=== PATIENT | male | born 1965 | race Two or more races ===

== ENCOUNTER 2021-07-31 13:41 | Emergency (ER) | payer BC, OTHER, SELFPAY ==
[2021-07-31 14:08] VITALS: BP 188/103; PULSE 72; RESP 18; TEMP 37.1; O2SAT 99; BMI 31.6
[2021-07-31 14:34] LABS: COVID-19 Test Negative (Negative)
--- NOTE | 2021-07-31 16:28 | ED_ITS ---
HPI - URI/Sore Throat General Chief Complaint: Upper Respiratory Symptoms Stated Complaint: Body aches/sore throat Time Seen by Provider: 07/31/21 16:20 Source: patient Mode of arrival: ambulatory Limitations: no limitations History of Present Illness MD elicited complaint: cough, sore throat, rhinorrhea and nasal congestion Onset (ago): day(s) (2) Consistency: constant and progressively worsening Severity: mild Able to tolerate fluids by mouth: Yes Exacerbating factors: swallowing Relieving factors: nothing Associated symptoms: chills, myalgias, rhinorrhea, nasal congestion, sore throat and cough Treatments prior to arrival: none Related Data Previous Rx's Medication Instructions Recorded amoxicillin 875 mg-potassium 1 tab PO BID 10 Days #20 tab 07/31/21 clavulanate 125 mg tablet (Augmentin) Allergies Allergy/AdvReac Type Severity Reaction Status Date / Time No Known Allergies Allergy Unverified 04/27/20 15:40 Review of Systems Review of Systems: Constitutional : No Weight loss, No Fever, + Chills, No Night Sweats, + Fatigue, + Malaise ENT/Mouth : No Hearing loss, No Ear Pain, + Nasal Congestion, No Sinus Pain, No Hoarseness, + sore throat, + Rhinorrhea, No Swallowing Difficulty Eyes: No Eye Pain, No Swelling, No Redness, No Foreign Body, No Discharge, No Vision Changes Cardiovascular : No Chest Pain, No SOB, No Dyspnea on Exertion, No Orthopnea, No Edema, No Palpitations Respiratory : + Cough, No Sputum, No Wheezing, No Smoke Exposure, No Dyspnea Gastrointestinal : No Nausea, No Vomiting, No Diarrhea, No Constipation, No abdominal Pain, No Hematochezia, No Melena Genitourinary : no irregular bleeding, No Dysuria, No Urinary Frequency, No Hematuria, No Urinary Incontinence, No Urgency, No Flank Pain, No Urinary Flow Changes, No Hesitancy Musculoskeletal : No joint pain, + Myalgias, No Joint Swelling Skin : No Skin Lesions, No rash Neuro : No Weakness, No Numbness, No Paresthesias, No Loss of Consciousness, No Dizziness, No Headache Psych : No Anxiety/Panic, No Depression, No SI/HI/AH/VH, No Social Issues, Heme/Lymph: No Bruising, No Bleeding,No Lymphadenopathy Endocrine : No Polyuria, No Polydipsia, No Temperature Intolerance Yes all other systems are reviewed and are negative [facility] Past Medical History Attestation statement: The following information was validated with the patient. Medical History No known health problems Physical Exam Vital Signs: Vital Signs: Last Vital Signs Temp 98.8 F 07/31/21 14:08 Pulse 72 07/31/21 14:08 Resp 18 07/31/21 14:08 BP 188/103 H 07/31/21 14:08 Pulse Ox 99 07/31/21 14:08 BMI result Body Mass Index 31.6 vital signs have been reviewed as normal and appeared to be correct. Blood pressure 188/103. Heart rate normal. Respiration rate normal. Temperature normal. Oxygen saturation normal. Appearance: Alert. Oriented X3. No acute distress. Head: Normal external exam. Normocephalic. Atraumatic. Eyes: PERRLA. EOMI. Conjunctiva and sclera normal. Eyelids normal. ENT: EAC normal. TM's Normal. Posterior pharynx mildly erythematous although exudate is noted. Uvula midline. Moist mucous membranes. No trismus noted. No drooling noted. No muffled voice noted. Tolerating secretions well. Neck: Normal inspection. Neck supple. FROM. No adenopathy. Thyroid Normal. No meningeal signs. No neck mass noted. CVS: Normal heart rate and rhythm. Heart sound normal. Pulses normal throughout. No murmurs/rales/gallops. Respiratory: No respiratory distress. Painless inspiration. Breath sounds normal. No wheezes/rales/rhonchi noted. Chest nontender. No accessory muscle usage noted or decreased air movement noted. Back: Full range of motion noted. No rashes/lesion/induration/fluctuance or signs of infection noted. Skin: Skin warm and dry. Normal skin color. Normal skin turgor. No rashes/lesions/lacerations noted. Extremities: Extremities exhibit normal range of motion. Extremities nontender. Neuro: Oriented X 3. No motor deficit. No sensory deficit. Reflexes normal. Normal steady gait. No focal neuro deficits noted. Vascular: + radial pulses/+ 2 distal pedal pulses/+2 dorsalis pedis b/l. Normal cap refill. No cyanosis noted to upper extremity nails and lower extremity toes nails. Course Course Course Narrative: 56-year-old male presenting to the ED with complaints of body aches/chills/myalgias/VT with a sore throat/nasal congestion/rhinorrhea and a dry cough for the past 2 days worse today. Reports that he wants to be tested for COVID. Denies recent travel or sick contacts. Denies any other symptoms. Patient negative for COVID. I explained him that he should have repeat testing in 5-7 days. Will DC home with antibiotics for bacterial pharyngitis and to follow-up with primary care provider. Patient understands agrees with this plan. MDM - URI/Sore Throat Medical Records Attestation: I reviewed the patient's medical records. Lab Data Attestation: I reviewed the patient's lab results. Labs: Lab Results 07/31/21 Range/Units 14:07 COVID-19 ([facility]) Negative (Negative) COVID-19 Clin Com See Note Discharge Plan Discharge Clinical Impression: Acute bacterial pharyngitis Patient Disposition: Home, Self-Care Instructions: Pharyngitis (ED) Prescriptions: New amoxicillin-pot clavulanate [Augmentin] 875-125 mg tablet 1 tab PO BID 10 Days Qty: 20 RF: 0 Referrals: Marzena Burns MD [Primary Care Provider] - 2 days Print Language: Arabic
[2021-07-31 16:39] LABS: Strep A Nucleic Acid Negative (Negative)
== END 2021-07-31 16:45 | disposition home or self-care (01) ==
LOC: HO.ED 16:42
PROVIDERS: Physician Assistant Medical; Emergency Provider Emergency Medicine; PCP Internal Medicine
DX: J02.8 Acute pharyngitis due to other specified organisms (principal); Z20.822 Contact with and (suspected) exposure to COVID-19
CPT/HCPCS: 36415; 87635; 87651; 99283

== ENCOUNTER 2021-10-23 10:22 | Outpatient (REF) | payer BC, OTHER, SELFPAY ==
--- NOTE | ~2021-10-23 | XR_ITS ---
EXAMINATION: XR KNEE, LEFT CLINICAL INFORMATION: Pain left knee. COMPARISON: None TECHNIQUE: 3 views of the left knee. FINDINGS: There is mild loss of patellofemoral joint space. The medial and lateral compartment joint space is preserved. No bony erosive changes, spurring or loose body seen. No abnormal joint effusion XR/XR knee LT 3V IMPRESSION: Minimal patellofemoral joint degenerative changes. No acute fracture, loose bodies or joint effusion seen.
--- NOTE | 2021-10-23 10:30 | ECG_ITS ---
Test Reason : precordial pain Blood Pressure : / mmHG Vent. Rate : 062 BPM Atrial Rate : 062 BPM P-R Int : 148 ms QRS Dur : 100 ms QT Int : 408 ms P-R-T Axes : 032 062 049 degrees QTc Int : 414 ms Normal sinus rhythm Minimal voltage criteria for LVH, may be normal variant ( Sokolow-Roman ) Borderline ECG No previous ECGs available Referred By: Marzena Mallory Electronically Signed By:CHRISTA MOSELEY
== END 2021-10-23 10:23 | disposition home or self-care (01) ==
LOC: HO.XRAY 10:22
PROVIDERS: PCP Internal Medicine; Visit Provider Internal Medicine
DX: R07.2 Precordial pain (principal); M25.562 Pain in left knee
CPT/HCPCS: 73562; 93005

== ENCOUNTER 2021-12-07 09:03 | Outpatient (REF) | payer BC, OTHER, SELFPAY ==
[2021-12-07 09:27] LABS: MANUAL DIFF FLAG NO
[2021-12-07 10:03] LABS: Basophils Percent Auto 0.3 % (0-2); Eosinophils Absolute Auto 0.1 X10*3/uL (0.0-0.4); Eosinophils Percent Auto 0.5 % (0-4); Hematocrit 42.6 % (42.0-52.0); Imm Gran Abs Auto 0.06 X10*3/uL (0.00-0.03); Imm Gran Pct Auto 0.5 % (0.0-0.4); Lymphocytes Absolute Auto 2.8 X10*3/uL (1.2-4.9); Lymphocytes Percent Auto 21.1 % (20-40); Mean Corpuscular HGB Conc 32.9 g/dl (31.0-36.0); Mean Corpuscular Hemoglobin 26.6 pg (27.0-33.0); Mean Platelet Volume 11.6 fL (9.4-12.4); Monocytes Absolute Auto 0.9 X10*3/uL (0.1-1.2); Monocytes Percent Auto 6.7 % (2-11); Neutrophils Absolute Auto 9.4 x10*3/uL (2.0-8.3); Neutrophils Percent Auto 70.9 % (45-73); Platelet Count 211 X10*3/uL (160-400); Red Blood Count 5.26 X10*6/uL (4.60-5.80); Red Cell Distribution Width 13.4 % (11.0-16.0); White Blood Count 13.2 X10*3/uL (4.8-10.8)
[2021-12-07 10:33] LABS: Alanine Aminotransferase 22 U/L (0-40); Albumin Level 4.4 g/dL (3.5-5.0); Alkaline Phosphatase 103 U/L (39-117); Anion Gap 9 (12-20); Aspartate Amino Transferase 16 U/L (5-37); Bilirubin Total 0.6 mg/dL (0.0-1.0); Blood Urea Nitrogen 13 mg/dL (9-16); Calcium 9.9 mg/dL (8.4-10.2); Carbon Dioxide 33 mmol/L (22-29); Chloride 102 mmol/L (96-108); Cholesterol 213 mg/dL; Estimated Glomerular Filt Rate > 60; Glucose Fasting 98 mg/dL (60-99); HDL Cholesterol 65 mg/dL; LDL Cholesterol Calculated 128 mg/dl; Potassium 3.4 mmol/L (3.3-5.1); Sodium 141 mmol/L (135-145); Total Protein 7.5 g/dL (6.5-8.0); Triglycerides 104 mg/dL
[2021-12-07 10:47] LABS: PSA,Total (Free>4and<10) 0.62 ng/mL (0.00-4.00)
== END 2021-12-07 09:04 | disposition home or self-care (01) ==
LOC: HO.LAB 09:03
PROVIDERS: PCP Internal Medicine; Visit Provider Internal Medicine
DX: Z12.5 Encounter for screening for malignant neoplasm of prostate (principal); E78.5 Hyperlipidemia, unspecified; I10 Essential (primary) hypertension; D64.9 Anemia, unspecified; K21.9 Gastro-esophageal reflux disease without esophagitis
CPT/HCPCS: 36415; 80053; 80061; 84153; 85025

== ENCOUNTER → 2021-12-26 10:23 | Outpatient (BNVA) | payer BC, OTHER, SELFPAY | PROVIDERS: PCP Internal Medicine; Referring Provider Internal Medicine; Visit Provider Physician Assistant | DX: K57.30 Diverticulosis of large intestine without perforation or abscess without bleeding (principal); K21.9 Gastro-esophageal reflux disease without esophagitis; R10.9 Unspecified abdominal pain | CPT/HCPCS: 99202 ==

== ENCOUNTER 2022-11-11 11:36 | Emergency (ER) | payer BC, OTHER, SELFPAY ==
[2022-11-11 11:45] VITALS: BP 192/105; PULSE 65; RESP 19; TEMP 36.6; O2SAT 98; BMI 32.5
--- NOTE | 2022-11-11 11:45 | ED.GENADULT ---
HPI - General Adult General Chief complaint: General Medical <SUZI Cotto Last Filed: 11/11/22 11:49> Stated complaint: sore throat/body aches / blurry vision <SUZI Cotto Last Filed: 11/11/22 11:49> Time Seen by Provider: 11/11/22 13:46 <SUZI Cotto Last Filed: 11/11/22 11:49> History of Present Illness HPI narrative: This is a 57-year-old male, with a past medical history of diverticulosis, GERD, and hypertension, who presents to the emergency department with complaints of sore throat, diarrhea, and body aches which started yesterday. Patient reports the worst symptom he has is his sore throat. Patient reports that he has not taken any medications at home to treat his symptoms. Patient reports that he had 2 episodes of diarrhea prior to his arrival today. Denies bloody or black stool. He has no fevers, chills, abdominal pain, vomiting, headaches, ear pain, runny nose, difficulty swallowing, or difficulty breathing. Patient denies anyone at home with similar symptoms. He denies any other complaints or concerns at this time. <SUZI Looney - Last Filed: 11/11/22 19:18> MD complaint: Sore throat/body aches <SUZI Looney Last Filed: 11/11/22 19:18> Onset (ago): day(s) <SUZI Looney Last Filed: 11/11/22 19:18> Radiation: non-radiation <SUZI Looney Last Filed: 11/11/22 19:18> Severity: moderate <SUZI Looney Last Filed: 11/11/22 19:18> Quality: aching <SUZI Looney Last Filed: 11/11/22 19:18> Pain Consistency: constant <SUZI Looney Last Filed: 11/11/22 19:18> Relieving factors: none <SUZI Looney Last Filed: 11/11/22 19:18> Exacerbating factors: none <SUZI Looney Last Filed: 11/11/22 19:18> Associated symptoms: denies other symptoms <SUZI Looney - Last Filed: 11/11/22 19:18> Treatments prior to arrival: none <SUZI Looney - Last Filed: 11/11/22 19:18> Related Data Home medications: Previous Rx's Medication Instructions Recorded atorvastatin 20 mg tablet 20 mg PO DAILY 90 days #90 tabs 10/23/21 dutasteride 0.5 mg capsule 0.5 mg PO DAILY 90 days #90 caps 10/23/21 pantoprazole 40 mg tablet,delayed 40 mg PO DAILY 90 days #90 tabs 10/23/21 release amlodipine 10 mg tablet 10 mg PO DAILY 90 days #90 tabs 12/04/21 methylcellulose (laxative) 500 mg 500 mg PO BID #60 tabs 12/26/21 tablet (Citrucel) sucralfate 100 mg/mL oral 10 ml PO BID #420 mL 12/26/21 suspension (Carafate) triamcinolone acetonide 55 mcg 1 spray intranasal DAILY 30 days 12/26/21 nasal spray aerosol (Nasacort #16.9 mL Allergy) sucralfate 1 gram tablet 1 g PO BID 21 days #42 tabs 12/28/21 <SUZI Cotto - Last Filed: 11/11/22 11:49> Allergies/adverse reactions: Allergies Allergy/AdvReac Type Severity Reaction Status Date / Time No Known Allergies Allergy Verified 11/11/22 11:45 <SUZI Cotto - Last Filed: 11/11/22 11:49> Review of Systems Review of Systems: Yes all other systems are reviewed and are negative <SUZI Looney - Last Filed: 11/11/22 19:18> ON LICENSE OF [facility] Past Medical History Medical History: Medical History (Updated 11/11/22 @ 14:38 by SUZI Looney) Allergic rhinitis BPH (benign prostatic hyperplasia) Chronic GERD Class 1 obesity with body mass index (BMI) of 31.0 to 31.9 in adult Diverticulosis Diverticulosis of colon Dyslipidemia Essential hypertension Hand numbness Ingrown toenail Left knee pain Mild recurrent major depression Physical exam Precordial chest pain <SUZI Cotto - Last Filed: 11/11/22 11:49> Surgical History: Surgical History History of hemorrhoids History of lipoma History of throat surgery <SUZI Cotto - Last Filed: 11/11/22 11:49> Family History Family History: Family History Mother Diabetes History of open heart surgery Father History of open heart surgery Family/Other Mental health disorder <SUZI Cotto - Last Filed: 11/11/22 11:49> Social History Social History: Social History Housing: House Alcohol intake: current Alcohol intake frequency: a few times a month Alcohol type: beer and hard liquor Patient Tobacco Use Status: Former Tobacco user Tobacco use type: Cigarette e-Cigarette/Vaping Use: Never Used Second Hand Smoke Exposure: No Substance Use Type: Marijuana Advance Directives: No Advance Directives Information Provided: Yes service: No Current occupational status: employed Current occupational exposures/hazards: No Cognitive needs: No Hearing needs: No Vision needs: Yes <SUZI Cotto - Last Filed: 11/11/22 11:49> Physical Exam ED Vital Signs: Vital Signs - 24 hr 11/11/22 11:45 11/11/22 14:49 Temperature 98 F Pulse Rate 65 55 Respiratory Rate 19 Blood Pressure 192/105 H 163/84 H Pulse Oximetry 98 98 Oxygen Delivery Method Room Air Room Air BMI result Body Mass Index 32.5 <SUZI Cotto - Last Filed: 11/11/22 11:49> Vital Signs - 24 hr 11/11/22 11:45 11/11/22 14:49 Temperature 98 F Pulse Rate 65 55 Respiratory Rate 19 Blood Pressure 192/105 H 163/84 H Pulse Oximetry 98 98 Oxygen Delivery Method Room Air Room Air BMI result Body Mass Index 32.5 <SUIZ Looney - Last Filed: 11/11/22 19:18> General: Awake, alert, and oriented X3. No acute distress. HEENT: Oropharynx is mildly erythematous, with mild tonsillar erythema, no tonsillar exudates. Uvula is midline. Mild tender anterior cervical lymphadenopathy. TMs are nonerythematous, nonbulging. EOMI, PERRL. Handling secretions well, noted trismus, drooling, or dysphonia. CVS: Normal heart rate and rhythm. Pulses normal. S1-S2 regular Respiratory: No respiratory distress, lungs clear to auscultation bilaterally. No wheezes, rales, or rhonchi Skin: Warm, dry, no rashes noted to exposed skin. Normal skin color. Normal skin turgor. Abdomen: Abdomen is soft, nontender, nondistended, no rebound or guarding. Extremities: Normal inspection Neuro: Oriented X 3. No motor deficit. No sensory deficit. <SUZI Looney - Last Filed: 11/11/22 19:18> Course Course Course Narrative: RME - 57 yo male with history of HTN, HLD, GERD, diverticulosis, BPH who presents to the ER for evaluation of sore throat, back pains, and diarrhea for the past 3 days. Has had some blurred vision since last night, coughing, and weakness. No known sick contacts. No abdominal pain. Poor PO intake. BP 190/100 - compliant w/ BP meds this am. Reports 8/10 throat pain. Erythema w/ exudate on the right side seen in triage. Plan: viral swabs, strep, labs. will need to treat BP and reassess <SUZI Cotto - Last Filed: 11/11/22 11:49> Medications Administered Discontinued Medications Generic Name Dose Route Start Last Admin Trade Name Freq PRN Reason Stop Dose Admin Acetaminophen 975 mg 11/11/22 14:26 11/11/22 14:31 Acetaminophen 325 Mg Tablet PO 11/11/22 14:27 975 mg ONCE ONE Administration <SUZI Cotto - Last Filed: 11/11/22 11:49> Medications Administered Discontinued Medications Generic Name Dose Route Start Last Admin Trade Name Freq PRN Reason Stop Dose Admin Acetaminophen 975 mg 11/11/22 14:26 11/11/22 14:31 Acetaminophen 325 Mg Tablet PO 11/11/22 14:27 975 mg ONCE ONE Administration <SUZI Looney - Last Filed: 11/11/22 19:18> Medical Decision Making Medical Decision Making MDM Narrative: 57-year-old male, with a past medical history of hypertension, who presents today with sore throat, body aches, and diarrhea since yesterday. Viral swabs obtained and were all negative. Strep test negative today. Patient medicated in department with Tylenol 1 g p.o.. Patient is afebrile, hypertensive upon arrival at 192/105, blood pressure improved to 163/84. On exam patient has a mildly erythematous oropharynx, with no signs of LEGISLATIVE DIRECTOR. Patient is handling secretions well, and has mild tender cervical lymphadenopathy. Patient is nontoxic appearing. Patient's symptoms likely viral in nature. Educated the importance of staying well hydrated, getting plenty of rest, and treating symptomatically with Tylenol or Motrin. Patient is stable for discharge, advised to return with any new or worsening symptoms. Patient understands and agrees with plan. <SUZI Looney - Last Filed: 11/11/22 19:18> Differential Diagnosis Differential Diagnoses: The differential diagnosis associated with the presentation includes <SUZI Looney - Last Filed: 11/11/22 19:18> Pharyngitis, COVID, viral illness, strep pharyngitis <SUZI Looney - Last Filed: 11/11/22 19:18> Lab Data Result Diagrams: 11/11/22 12:09 11/11/22 12:09 <SUZI Cotto - Last Filed: 11/11/22 11:49> Labs: Lab Results 11/11/22 11/11/22 11/11/22 Range/Units 12:09 12:09 12:09 WBC 7.7 (4.8-10.8) X10*3/uL RBC 5.15 (4.60-5.80) X10*6/uL Hgb 13.7 L (14.0-18.0) g/dl Hct 42.6 (42.0-52.0) % MCV 82.7 (80.0-98.0) fL MCH 26.6 L (27.0-33.0) pg MCHC 32.2 (31.0-36.0) g/dl RDW 13.6 (11.0-16.0) % Plt Count 227 (160-400) X10*3/uL MPV 11.4 (9.4-12.4) fL Immature Gran % (Auto) 0.8 H (0.0-0.4) % Neut % (Auto) 64.9 (45-73) % Lymph % (Auto) 27.3 (20-40) % Thurston % (Auto) 5.3 (2-11) % Eos % (Auto) 1.2 (0-4) % Baso % (Auto) 0.5 (0-2) % Lymph # (Auto) 2.1 (1.2-4.9) X10*3/uL Thurston # (Auto) 0.4 (0.1-1.2) X10*3/uL Eos # (Auto) 0.1 (0.0-0.4) X10*3/uL Baso # (Auto) 0.0 (0.0-0.2) X10*3/uL Abs Immat Gran (auto) 0.06 H (0.00-0.03) X10*3/uL Absolute Neuts (auto) 5.0 (2.0-8.3) x10*3/uL Absolute Nucleated RBC 0.000 (0.0-0.012) X10*3/uL Nucleated RBC % (auto) 0.0 (0.0-0.2) /100WBC Sodium 143 (135-145) mmol/L Potassium 3.7 (3.3-5.1) mmol/L Chloride 104 (96-108) mmol/L Carbon Dioxide 31 H (22-29) mmol/L Anion Gap 12 (12-20) BUN 11 (9-16) mg/dL Creatinine 1.07 (0.5-1.4) mg/dL Estim Creat Clear Calc 93.2 Estimated GFR > 60 Random Glucose 163 H (60-115) mg/dL Calcium 9.0 D (8.4-10.2) mg/dL Magnesium 2.0 (1.6-2.6) mg/dL Total Bilirubin 0.5 (0.0-1.0) mg/dL Direct Bilirubin 0.2 (0.0-0.5) mg/dL AST 17 (5-37) U/L ALT 23 (0-40) U/L Alkaline Phosphatase 90 (39-117) U/L Total Protein 6.8 (6.5-8.0) g/dL Albumin 4.2 (3.5-5.0) g/dL Urine Color Urine Appearance Urine pH (5.0-9.0) Ur Specific Edmond (1.005-1.025) Urine Protein (Neg-Trace) mg/dL Urine Glucose (UA) (Negative) mg/dL Urine Ketones (Negative) mg/dL Urine Blood (Negative) Urine Nitrite (Negative) Ur Leukocyte Esterase (Negative) COVID-19 (ADAM) (Negative) COVID-19 Clin Com Monoscreen (Negative) Influenza Type A (FERNANDO) Negative (Negative) Influenza Type B (FERNANDO) Negative (Negative) Influenza A & B Note See Note S. pyogenes GrpA FERNANDO (Negative) 11/11/22 11/11/22 11/11/22 Range/Units 12:09 12:09 12:09 WBC (4.8-10.8) X10*3/uL RBC (4.60-5.80) X10*6/uL Hgb (14.0-18.0) g/dl Hct (42.0-52.0) % MCV (80.0-98.0) fL MCH (27.0-33.0) pg MCHC (31.0-36.0) g/dl RDW (11.0-16.0) % Plt Count (160-400) X10*3/uL MPV (9.4-12.4) fL Immature Gran % (Auto) (0.0-0.4) % Neut % (Auto) (45-73) % Lymph % (Auto) (20-40) % Thurston % (Auto) (2-11) % Eos % (Auto) (0-4) % Baso % (Auto) (0-2) % Lymph # (Auto) (1.2-4.9) X10*3/uL Thurston # (Auto) (0.1-1.2) X10*3/uL Eos # (Auto) (0.0-0.4) X10*3/uL Baso # (Auto) (0.0-0.2) X10*3/uL Abs Immat Gran (auto) (0.00-0.03) X10*3/uL Absolute Neuts (auto) (2.0-8.3) x10*3/uL Absolute Nucleated RBC (0.0-0.012) X10*3/uL Nucleated RBC % (auto) (0.0-0.2) /100WBC Sodium (135-145) mmol/L Potassium (3.3-5.1) mmol/L Chloride (96-108) mmol/L Carbon Dioxide (22-29) mmol/L Anion Gap (12-20) BUN (9-16) mg/dL Creatinine (0.5-1.4) mg/dL Estim Creat Clear Calc Estimated GFR Random Glucose (60-115) mg/dL Calcium (8.4-10.2) mg/dL Magnesium (1.6-2.6) mg/dL Total Bilirubin (0.0-1.0) mg/dL Direct Bilirubin (0.0-0.5) mg/dL AST (5-37) U/L ALT (0-40) U/L Alkaline Phosphatase (39-117) U/L Total Protein (6.5-8.0) g/dL Albumin (3.5-5.0) g/dL Urine Color Urine Appearance Urine pH (5.0-9.0) Ur Specific Edmond (1.005-1.025) Urine Protein (Neg-Trace) mg/dL Urine Glucose (UA) (Negative) mg/dL Urine Ketones (Negative) mg/dL Urine Blood (Negative) Urine Nitrite (Negative) Ur Leukocyte Esterase (Negative) COVID-19 (ADAM) Negative (Negative) COVID-19 Clin Com See Note Monoscreen Negative (Negative) Influenza Type A (FERNANDO) (Negative) Influenza Type B (FERNANDO) (Negative) Influenza A & B Note S. pyogenes GrpA FERNANDO Negative (Negative) 11/11/22 Range/Units 13:59 WBC (4.8-10.8) X10*3/uL RBC (4.60-5.80) X10*6/uL Hgb (14.0-18.0) g/dl Hct (42.0-52.0) % MCV (80.0-98.0) fL MCH (27.0-33.0) pg MCHC (31.0-36.0) g/dl RDW (11.0-16.0) % Plt Count (160-400) X10*3/uL MPV (9.4-12.4) fL Immature Gran % (Auto) (0.0-0.4) % Neut % (Auto) (45-73) % Lymph % (Auto) (20-40) % Thurston % (Auto) (2-11) % Eos % (Auto) (0-4) % Baso % (Auto) (0-2) % Lymph # (Auto) (1.2-4.9) X10*3/uL Thurston # (Auto) (0.1-1.2) X10*3/uL Eos # (Auto) (0.0-0.4) X10*3/uL Baso # (Auto) (0.0-0.2) X10*3/uL Abs Immat Gran (auto) (0.00-0.03) X10*3/uL Absolute Neuts (auto) (2.0-8.3) x10*3/uL Absolute Nucleated RBC (0.0-0.012) X10*3/uL Nucleated RBC % (auto) (0.0-0.2) /100WBC Sodium (135-145) mmol/L Potassium (3.3-5.1) mmol/L Chloride (96-108) mmol/L Carbon Dioxide (22-29) mmol/L Anion Gap (12-20) BUN (9-16) mg/dL Creatinine (0.5-1.4) mg/dL Estim Creat Clear Calc Estimated GFR Random Glucose (60-115) mg/dL Calcium (8.4-10.2) mg/dL Magnesium (1.6-2.6) mg/dL Total Bilirubin (0.0-1.0) mg/dL Direct Bilirubin (0.0-0.5) mg/dL AST (5-37) U/L ALT (0-40) U/L Alkaline Phosphatase (39-117) U/L Total Protein (6.5-8.0) g/dL Albumin (3.5-5.0) g/dL Urine Color Yellow Urine Appearance Clear Urine pH 7.0 (5.0-9.0) Ur Specific Edmond 1.020 (1.005-1.025) Urine Protein Trace (Neg-Trace) mg/dL Urine Glucose (UA) Negative (Negative) mg/dL Urine Ketones Negative (Negative) mg/dL Urine Blood Negative (Negative) Urine Nitrite Negative (Negative) Ur Leukocyte Esterase Negative (Negative) COVID-19 (ADAM) (Negative) COVID-19 Clin Com Monoscreen (Negative) Influenza Type A (FERNANDO) (Negative) Influenza Type B (FERNANDO) (Negative) Influenza A & B Note S. pyogenes GrpA FERNANDO (Negative) <SUZI Cotto - Last Filed: 11/11/22 11:49> Lab Results 11/11/22 11/11/22 11/11/22 Range/Units 12:09 12:09 12:09 WBC 7.7 (4.8-10.8) X10*3/uL RBC 5.15 (4.60-5.80) X10*6/uL Hgb 13.7 L (14.0-18.0) g/dl Hct 42.6 (42.0-52.0) % MCV 82.7 (80.0-98.0) fL MCH 26.6 L (27.0-33.0) pg MCHC 32.2 (31.0-36.0) g/dl RDW 13.6 (11.0-16.0) % Plt Count 227 (160-400) X10*3/uL MPV 11.4 (9.4-12.4) fL Immature Gran % (Auto) 0.8 H (0.0-0.4) % Neut % (Auto) 64.9 (45-73) % Lymph % (Auto) 27.3 (20-40) % Thurston % (Auto) 5.3 (2-11) % Eos % (Auto) 1.2 (0-4) % Baso % (Auto) 0.5 (0-2) % Lymph # (Auto) 2.1 (1.2-4.9) X10*3/uL Thurston # (Auto) 0.4 (0.1-1.2) X10*3/uL Eos # (Auto) 0.1 (0.0-0.4) X10*3/uL Baso # (Auto) 0.0 (0.0-0.2) X10*3/uL Abs Immat Gran (auto) 0.06 H (0.00-0.03) X10*3/uL Absolute Neuts (auto) 5.0 (2.0-8.3) x10*3/uL Absolute Nucleated RBC 0.000 (0.0-0.012) X10*3/uL Nucleated RBC % (auto) 0.0 (0.0-0.2) /100WBC Sodium 143 (135-145) mmol/L Potassium 3.7 (3.3-5.1) mmol/L Chloride 104 (96-108) mmol/L Carbon Dioxide 31 H (22-29) mmol/L Anion Gap 12 (12-20) BUN 11 (9-16) mg/dL Creatinine 1.07 (0.5-1.4) mg/dL Estim Creat Clear Calc 93.2 Estimated GFR > 60 Random Glucose 163 H (60-115) mg/dL Calcium 9.0 D (8.4-10.2) mg/dL Magnesium 2.0 (1.6-2.6) mg/dL Total Bilirubin 0.5 (0.0-1.0) mg/dL Direct Bilirubin 0.2 (0.0-0.5) mg/dL AST 17 (5-37) U/L ALT 23 (0-40) U/L Alkaline Phosphatase 90 (39-117) U/L Total Protein 6.8 (6.5-8.0) g/dL Albumin 4.2 (3.5-5.0) g/dL Urine Color Urine Appearance Urine pH (5.0-9.0) Ur Specific Edmond (1.005-1.025) Urine Protein (Neg-Trace) mg/dL Urine Glucose (UA) (Negative) mg/dL Urine Ketones (Negative) mg/dL Urine Blood (Negative) Urine Nitrite (Negative) Ur Leukocyte Esterase (Negative) COVID-19 (ADAM) (Negative) COVID-19 Clin Com Monoscreen (Negative) Influenza Type A (FERNANDO) Negative (Negative) Influenza Type B (FERNANDO) Negative (Negative) Influenza A & B Note See Note S. pyogenes GrpA FERNANDO (Negative) 11/11/22 11/11/22 11/11/22 Range/Units 12:09 12:09 12:09 WBC (4.8-10.8) X10*3/uL RBC (4.60-5.80) X10*6/uL Hgb (14.0-18.0) g/dl Hct (42.0-52.0) % MCV (80.0-98.0) fL MCH (27.0-33.0) pg MCHC (31.0-36.0) g/dl RDW (11.0-16.0) % Plt Count (160-400) X10*3/uL MPV (9.4-12.4) fL Immature Gran % (Auto) (0.0-0.4) % Neut % (Auto) (45-73) % Lymph % (Auto) (20-40) % [place]ston % (Auto) (2-11) % Eos % (Auto) (0-4) % Baso % (Auto) (0-2) % Lymph # (Auto) (1.2-4.9) X10*3/uL [place] # (Auto) (0.1-1.2) X10*3/uL Eos # (Auto) (0.0-0.4) X10*3/uL Baso # (Auto) (0.0-0.2) X10*3/uL Abs Immat Gran (auto) (0.00-0.03) X10*3/uL Absolute Neuts (auto) (2.0-8.3) x10*3/uL Absolute Nucleated RBC (0.0-0.012) X10*3/uL Nucleated RBC % (auto) (0.0-0.2) /100WBC Sodium (135-145) mmol/L Potassium (3.3-5.1) mmol/L Chloride (96-108) mmol/L Carbon Dioxide (22-29) mmol/L Anion Gap (12-20) BUN (9-16) mg/dL Creatinine (0.5-1.4) mg/dL Estim Creat Clear Calc Estimated GFR Random Glucose (60-115) mg/dL Calcium (8.4-10.2) mg/dL Magnesium (1.6-2.6) mg/dL Total Bilirubin (0.0-1.0) mg/dL Direct Bilirubin (0.0-0.5) mg/dL AST (5-37) U/L ALT (0-40) U/L Alkaline Phosphatase (39-117) U/L Total Protein (6.5-8.0) g/dL Albumin (3.5-5.0) g/dL Urine Color Urine Appearance Urine pH (5.0-9.0) Ur Specific Edmond (1.005-1.025) Urine Protein (Neg-Trace) mg/dL Urine Glucose (UA) (Negative) mg/dL Urine Ketones (Negative) mg/dL Urine Blood (Negative) Urine Nitrite (Negative) Ur Leukocyte Esterase (Negative) COVID-19 (ADAM) Negative (Negative) COVID-19 Clin Com See Note Monoscreen Negative (Negative) Influenza Type A (FERNANDO) (Negative) Influenza Type B (FERNANDO) (Negative) Influenza A & B Note S. pyogenes GrpA FERNANDO Negative (Negative) 11/11/22 Range/Units 13:59 WBC (4.8-10.8) X10*3/uL RBC (4.60-5.80) X10*6/uL Hgb (14.0-18.0) g/dl Hct (42.0-52.0) % MCV (80.0-98.0) fL MCH (27.0-33.0) pg MCHC (31.0-36.0) g/dl RDW (11.0-16.0) % Plt Count (160-400) X10*3/uL MPV (9.4-12.4) fL Immature Gran % (Auto) (0.0-0.4) % Neut % (Auto) (45-73) % Lymph % (Auto) (20-40) % Thur[place] % (Auto) (2-11) % Eos % (Auto) (0-4) % Baso % (Auto) (0-2) % Lymph # (Auto) (1.2-4.9) X10*3/uL [place] # (Auto) (0.1-1.2) X10*3/uL Eos # (Auto) (0.0-0.4) X10*3/uL Baso # (Auto) (0.0-0.2) X10*3/uL Abs Immat Gran (auto) (0.00-0.03) X10*3/uL Absolute Neuts (auto) (2.0-8.3) x10*3/uL Absolute Nucleated RBC (0.0-0.012) X10*3/uL Nucleated RBC % (auto) (0.0-0.2) /100WBC Sodium (135-145) mmol/L Potassium (3.3-5.1) mmol/L Chloride (96-108) mmol/L Carbon Dioxide (22-29) mmol/L Anion Gap (12-20) BUN (9-16) mg/dL Creatinine (0.5-1.4) mg/dL Estim Creat Clear Calc Estimated GFR Random Glucose (60-115) mg/dL Calcium (8.4-10.2) mg/dL Magnesium (1.6-2.6) mg/dL Total Bilirubin (0.0-1.0) mg/dL Direct Bilirubin (0.0-0.5) mg/dL AST (5-37) U/L ALT (0-40) U/L Alkaline Phosphatase (39-117) U/L Total Protein (6.5-8.0) g/dL Albumin (3.5-5.0) g/dL Urine Color Yellow Urine Appearance Clear Urine pH 7.0 (5.0-9.0) Ur Specific Ed[place] 1.020 (1.005-1.025) Urine Protein Trace (Neg-Trace) mg/dL Urine Glucose (UA) Negative (Negative) mg/dL Urine Ketones Negative (Negative) mg/dL Urine Blood Negative (Negative) Urine Nitrite Negative (Negative) Ur Leukocyte Esterase Negative (Negative) COVID-19 (ADAM) (Negative) COVID-19 Clin Com Monoscreen (Negative) Influenza Type A (FERNANDO) (Negative) Influenza Type B (FERNANDO) (Negative) Influenza A & B Note S. pyogenes GrpA FERNANDO (Negative) <SUZI Looney - Last Filed: 11/11/22 19:18> Discharge Plan Discharge Clinical Impression: Viral syndrome, Pharyngitis <SUZI Cotto - Last Filed: 11/11/22 11:49> Patient Disposition: Home, Self-Care <SUZI Cotto - Last Filed: 11/11/22 11:49> Instructions: Pharyngitis (ED), Viral Syndrome (ED) <SUZI Cotto - Last Filed: 11/11/22 11:49> Additional Instructions: Your Flu test, covid test, and strep test were negative today. Your symptoms are likely due to a virus. Drink plenty of fluids and plenty of rest. Salt water gargles can help with the throat pain. If you develop any new or worsening symptoms, please return for re-evaluation. <SUZI Cotto - Last Filed: 11/11/22 11:49> Prescriptions: No Action sucralfate 1 gram tablet 1 g PO BID 21 Days Qty: 42 1RF amlodipine 10 mg tablet 10 mg PO DAILY 90 Days Qty: 90 1RF pantoprazole 40 mg tablet,delayed release (DR/EC) 40 mg PO DAILY 90 Days Qty: 90 3RF dutasteride 0.5 mg capsule 0.5 mg PO DAILY 90 Days Qty: 90 1RF atorvastatin 20 mg tablet 20 mg PO DAILY 90 Days Qty: 90 3RF triamcinolone acetonide [Nasacort Allergy] 55 mcg aerosol,spray 1 spray intranasal DAILY 30 Days Qty: 16.9 0RF Rx Instructions: administer into each nostril Citrucel 500 mg tablet 500 mg PO BID Qty: 60 5RF sucralfate [Carafate] 100 mg/mL suspension 10 ml PO BID Qty: 420 0RF <SUZI Cotto - Last Filed: 11/11/22 11:49> Stand Alone Forms: Work/School Release <SUZI Cotto - Last Filed: 11/11/22 11:49> Interventions: ED Discharge Assessment Last Done: 11/11/22 14:51 <SUZI Cotto - Last Filed: 11/11/22 11:49> Discharge Date/Time: 11/11/22 14:51 <SUZI Cotto - Last Filed: 11/11/22 11:49>
[2022-11-11 12:23] LABS: MANUAL DIFF FLAG NO
[2022-11-11 12:26] LABS: Basophils Percent Auto 0.5 % (0-2); Eosinophils Absolute Auto 0.1 X10*3/uL (0.0-0.4); Eosinophils Percent Auto 1.2 % (0-4); Hematocrit 42.6 % (42.0-52.0); Hemoglobin 13.7 g/dl (14.0-18.0); Imm Gran Abs Auto 0.06 X10*3/uL (0.00-0.03); Imm Gran Pct Auto 0.8 % (0.0-0.4); Lymphocytes Absolute Auto 2.1 X10*3/uL (1.2-4.9); Lymphocytes Percent Auto 27.3 % (20-40); Mean Corpuscular HGB Conc 32.2 g/dl (31.0-36.0); Mean Corpuscular Hemoglobin 26.6 pg (27.0-33.0); Mean Corpuscular Volume 82.7 fL (80.0-98.0); Mean Platelet Volume 11.4 fL (9.4-12.4); Monocytes Absolute Auto 0.4 X10*3/uL (0.1-1.2); Monocytes Percent Auto 5.3 % (2-11); Neutrophils Percent Auto 64.9 % (45-73); Platelet Count 227 X10*3/uL (160-400); Red Blood Count 5.15 X10*6/uL (4.60-5.80); Red Cell Distribution Width 13.6 % (11.0-16.0); White Blood Count 7.7 X10*3/uL (4.8-10.8)
[2022-11-11 12:39] LABS: Alanine Aminotransferase 23 U/L (0-40); Albumin Level 4.2 g/dL (3.5-5.0); Alkaline Phosphatase 90 U/L (39-117); Anion Gap 12 (12-20); Aspartate Amino Transferase 17 U/L (5-37); Bilirubin Direct 0.2 mg/dL (0.0-0.5); Bilirubin Total 0.5 mg/dL (0.0-1.0); Blood Urea Nitrogen 11 mg/dL (9-16); Carbon Dioxide 31 mmol/L (22-29); Chloride 104 mmol/L (96-108); Creatinine Clr Calc Pharmacy 93.2; Estimated Glomerular Filt Rate > 60; Glucose Random 163 mg/dL (60-115); Potassium 3.7 mmol/L (3.3-5.1); Sodium 143 mmol/L (135-145); Total Protein 6.8 g/dL (6.5-8.0)
[2022-11-11 12:40] LABS: COVID-19 Test Negative (Negative); IDNOW Serial# 08D9AD1C; IDNOW Serial# 9DB6401D; Strep A Nucleic Acid Negative (Negative)
[2022-11-11 12:44] LABS: IDNOW Serial# BCCEAD1C; Influenza A Negative (Negative); Influenza B2 Negative (Negative)
[2022-11-11 13:53] LABS: Monotest Negative (Negative)
[2022-11-11 14:09] LABS: Appearance Urine Clear; Color Urine Yellow; Glucose Urine UA Negative (Negative); Leukocyte Esterase Urine Negative (Negative); Nitrite Urine Negative (Negative); Urine Blood Negative (Negative); Urine Ketones Negative (Negative); Urine Protein Trace mg/dL (Neg-Trace)
[2022-11-11] MEDS: Acetaminophen 325 MG TABLET 975 MG PO (14:31)
[2022-11-11 14:49] VITALS: BP 163/84; PULSE 55; O2SAT 98
== END 2022-11-11 14:51 | disposition home or self-care (01) ==
PROVIDERS: Physician Assistant; Emergency Provider Emergency Medicine; PCP Internal Medicine
DX: B34.9 Viral infection, unspecified (principal); J02.9 Acute pharyngitis, unspecified; Z20.822 Contact with and (suspected) exposure to COVID-19; Z20.828 Contact with and (suspected) exposure to other viral communicable diseases; Z79.899 Other long term (current) drug therapy
CPT/HCPCS: 80048; 80076; 81003; 83735; 85025; 86308; 87502; 87635; 87651; 99283

== ENCOUNTER 2022-12-25 12:57 | Emergency (ER) | payer BC, OTHER, SELFPAY ==
--- NOTE | ~2022-12-25 | CT_ITS ---
EXAMINATION: CT ABDOMEN AND PELVIS WITHOUT CONTRAST CLINICAL INFORMATION: Left lower quadrant pain COMPARISON: Previous CT from 2013 TECHNIQUE: Multidetector volumetric imaging was performed from the superior aspect of the liver through the pubic symphysis. Sagittal and coronal reformatted images were obtained on the technologist's workstation. This CT examination was performed using dose optimization techniques as appropriate, variously including the following: *Automated exposure control *Adjustment of mA and/or kV according to patient size (this includes techniques or standardized protocols for targeted exams where dose is matched to indication/reason for exam; i.e. extremities or head) *Use of iterative reconstruction technique DLP: 696 mGy-cm FINDINGS: LUNG BASES: The visualized lung bases are unremarkable. LIVER, GALLBLADDER, AND BILIARY TREE: The liver is normal in size, shape, and attenuation. No suspicious focal hepatic lesion or biliary ductal dilatation is present. There are scattered calcifications in the liver. There are low-attenuation liver lesions probably representing cysts, largest measuring 1.5 cm in the left lobe of the liver. These are similar to previous exam. The gallbladder is contracted. PANCREAS: Unremarkable. SPLEEN: Unremarkable. ADRENAL GLANDS: Unremarkable. KIDNEYS AND URETERS: The kidneys are normal in size, shape, and attenuation. No hydronephrosis, hydroureter, or calculi seen. No perinephric stranding. BLADDER: Unremarkable. GASTROINTESTINAL TRACT: Diverticulosis of the colon. Short segment wall thickening of the proximal sigmoid colon and stranding of the adjacent fat suggestive of mild diverticulitis. No evidence of obstruction, perforation or abscess. Small and large bowel is otherwise normal. The appendix is normal. ABDOMINAL WALL: Small umbilical hernia containing fat. LYMPH NODES: Normal. VASCULAR: Unremarkable. PELVIC VISCERA: Unremarkable. OSSEOUS STRUCTURES: Spondylolysis, grade 1 spondylolisthesis and degenerative disc disease at L5-S1. Degenerative changes of the lumbar spine and visualized lower thoracic spine. CT/CT abdomen pelvis wo IV con IMPRESSION: Sigmoid diverticulitis. Fleischner guidelines were followed.
[2022-12-25 13:01] VITALS: BP 177/86; PULSE 71; RESP 18; TEMP 36.2; O2SAT 98; BMI 32.8
--- NOTE | 2022-12-25 13:01 | ED.ABDPAIN ---
HPI - Abdominal Pain General Chief Complaint: Abdominal Pain <SUZI Cotto - Last Filed: 12/25/22 13:10> Stated Complaint: abd pain <SUZI Cotto - Last Filed: 12/25/22 13:10> Time Seen by Provider: 12/25/22 14:31 <SUZI Cotto - Last Filed: 12/25/22 13:10> Source: patient, RN notes reviewed and old records reviewed <SUZI Jordan - Last Filed: 12/25/22 16:32> Mode of arrival: ambulatory <SUZI Jordan Last Filed: 12/25/22 16:32> History of Present Illness HPI narrative: 57-year-old male with a past medical history BPH, GERD, diverticulosis, HLD, HTN, depression, presenting to the ED complaining of left lower quadrant abdominal pain and nonbloody diarrhea x1 week s/p eating steak with seasoning/pepper seeds. Admits symptoms feel similar to prior diverticulitis. Denies fever, chills, nausea, vomiting, dysuria/hematuria <SUZI Jordan Last Filed: 12/25/22 16:32> MD elicited complaint: abdominal pain <SUZI Jordan Last Filed: 12/25/22 16:32> Related Data Home Medications: Previous Rx's Medication Instructions Recorded atorvastatin 20 mg tablet 20 mg PO DAILY 90 days #90 tabs 10/23/21 dutasteride 0.5 mg capsule 0.5 mg PO DAILY 90 days #90 caps 10/23/21 pantoprazole 40 mg tablet,delayed 40 mg PO DAILY 90 days #90 tabs 10/23/21 release amlodipine 10 mg tablet 10 mg PO DAILY 90 days #90 tabs 12/04/21 methylcellulose (laxative) 500 mg 500 mg PO BID #60 tabs 12/26/21 tablet (Citrucel) sucralfate 100 mg/mL oral 10 ml PO BID #420 mL 12/26/21 suspension (Carafate) triamcinolone acetonide 55 mcg 1 spray intranasal DAILY 30 days 12/26/21 nasal spray aerosol (Nasacort #16.9 mL Allergy) sucralfate 1 gram tablet 1 g PO BID 21 days #42 tabs 12/28/21 amoxicillin 875 mg-potassium 1 tab PO BID 7 days #14 tabs 12/25/22 clavulanate 125 mg tablet ketorolac 10 mg tablet 10 mg PO TID PRN pain 5 days #15 12/25/22 tabs <SUZI Cotto - Last Filed: 12/25/22 13:10> Allergies/Adverse Reactions: Allergies Allergy/AdvReac Type Severity Reaction Status Date / Time No Known Allergies Allergy Verified 12/25/22 13:03 <SUZI Cotto - Last Filed: 12/25/22 13:10> Review of Systems Review of Systems Constitutional: No Fever, No Chills, No Fatigue, No Malaise ENT/Mouth: No Hearing loss, No Ear Pain, No Nasal Congestion, No sore throat, No Rhinorrhea, No Swallowing Difficulty Eyes: No Eye Pain, No Swelling, No Redness, No Vision Changes Cardiovascular: No Chest Pain, No SOB, No Edema, No Palpitations Respiratory: No Cough, No Sputum, No Dyspnea Gastrointestinal: No Nausea, No Vomiting, +Diarrhea, No Constipation, + Abdominal pain, No Hematochezia, No Melena Genitourinary: No Dysuria, No Urinary Frequency, No Hematuria, No Flank Pain, No Urinary Flow Changes Musculoskeletal: No joint pain, No Myalgias, No Joint Swelling Skin: No Skin Lesions, No rash Neuro: No Weakness, No Dizziness, No Headache <SUZI Jordan Last Filed: 12/25/22 16:32> Yes all other systems are reviewed and are negative <SUZI Jordan Last Filed: 12/25/22 16:32> Constitutional: Reports as per HPI <SUZI Jordan Last Filed: 12/25/22 16:32> [facility] Past Medical History Attestation statement: The following information was validated with the patient. <SUZI Jordan Last Filed: 12/25/22 16:32> Source: old records reviewed <SUZI Jordan Last Filed: 12/25/22 16:32> Medical History: Medical History Allergic rhinitis BPH (benign prostatic hyperplasia) Chronic GERD Class 1 obesity with body mass index (BMI) of 31.0 to 31.9 in adult Diverticulosis Diverticulosis of colon Dyslipidemia Essential hypertension Hand numbness Ingrown toenail Left knee pain Mild recurrent major depression Physical exam Precordial chest pain <SUZI Cotto - Last Filed: 12/25/22 13:10> Surgical History: Surgical History History of hemorrhoids History of lipoma History of throat surgery <SUZI Cotto - Last Filed: 12/25/22 13:10> Family History Family History: Family History Mother Diabetes History of open heart surgery Father History of open heart surgery Family/Other Mental health disorder <SUZI Cotto - Last Filed: 12/25/22 13:10> Social History Social History: Social History Housing: House Alcohol intake: current Alcohol intake frequency: a few times a month Alcohol type: beer and hard liquor Patient Tobacco Use Status: Former Tobacco user Tobacco use type: Cigarette e-Cigarette/Vaping Use: Never Used Second Hand Smoke Exposure: No Substance Use Type: Marijuana Advance Directives: No Advance Directives Information Provided: No service: No Current occupational status: employed Current occupational exposures/hazards: No Cognitive needs: No Hearing needs: No Vision needs: Yes <SUZI Cotto - Last Filed: 12/25/22 13:10> Physical Exam ED Vital Signs: Vital Signs - 24 hr 12/25/22 13:01 12/25/22 16:01 Temperature 97.2 F 97.7 F Pulse Rate 71 64 Respiratory Rate 18 16 Blood Pressure 177/86 H 166/93 H Pulse Oximetry 98 98 Oxygen Delivery Method Room Air Room Air BMI result Body Mass Index 32.8 <SUZI Cotto - Last Filed: 12/25/22 13:10> Vital Signs - 24 hr 12/25/22 13:01 12/25/22 16:01 Temperature 97.2 F 97.7 F Pulse Rate 71 64 Respiratory Rate 18 16 Blood Pressure 177/86 H 166/93 H Pulse Oximetry 98 98 Oxygen Delivery Method Room Air Room Air BMI result Body Mass Index 32.8 <SUZI Jordan - Last Filed: 12/25/22 16:32> Const General: cooperative, healthy appearing and no acute distress <SUZI Jordan - Last Filed: 12/25/22 16:32> Orientation/consciousness: patient oriented x3 <SUZI Jordan - Last Filed: 12/25/22 16:32> Limitations: no limitations <SUZI Jordan - Last Filed: 12/25/22 16:32> HENMT Head: Yes normal to inspection and Yes atraumatic <Frieda Mosqueda PA - Last Filed: 12/25/22 16:32> Ears: hearing grossly normal bilaterally <SUZI Jordan - Last Filed: 12/25/22 16:32> General nose exam: Normal external nose present <SUZI Jordan - Last Filed: 12/25/22 16:32> Face and sinus: Yes normal facial exam <SUZI Jordan - Last Filed: 12/25/22 16:32> Eyes General: appearance normal, both eyes and all related structures <Frieda Mosqueda PA - Last Filed: 12/25/22 16:32> EOM: EOMs intact bilaterally <SUZI Jordan - Last Filed: 12/25/22 16:32> Neck Neck: Yes normal visual inspection and Yes no meningeal signs <SUZI Jordan - Last Filed: 12/25/22 16:32> Resp Effort & Inspection: normal respiratory effort and no respiratory distress <Frieda Mosqueda PA - Last Filed: 12/25/22 16:32> Auscultation: clear to auscultation bilaterally <SUZI Jordan - Last Filed: 12/25/22 16:32> Cardio Rate: regular rate <SUZI Jordan - Last Filed: 12/25/22 16:32> Heart sounds: S1 normal heart sound present and S2 normal heart sound present <SUZI Jordan - Last Filed: 12/25/22 16:32> GI Inspection: Yes normal to inspection <SUZI Jordan - Last Filed: 12/25/22 16:32> Palpation (GI): Soft to palpation, Tenderness to palpation present (GI) in the LLQ and suprapubicly; with no rebound tenderness, no guarding and not rigid <SUZI Jordan - Last Filed: 12/25/22 16:32> General: Yes no CVA tenderness <SUZI Jordan - Last Filed: 12/25/22 16:32> Back/Spine/Pelvis Back: no CVA tenderness <SUZI Jordan - Last Filed: 12/25/22 16:32> Skin Rashes: no rashes <SUZI Jordan - Last Filed: 12/25/22 16:32> Wounds: no wounds <SUZI Jordan - Last Filed: 12/25/22 16:32> Neuro General: patient oriented x3, tone normal and no meningeal signs <SUZI Jordan Last Filed: 12/25/22 16:32> Gait exam (Neuro): Normal gait present <SUZI Jordan - Last Filed: 12/25/22 16:32> Extrem General: Yes normal to inspection <SUZI Jordan Last Filed: 12/25/22 16:32> Course Course Course Narrative: AR[place] Patient is a 57 yo male with a hx of Diverticulysis. HE says he's had LLQ pain for a week with non-bloody diarrhea. He has not had any nausea or vomiting. He states he ate a steak with a pepper seed before this pain occurred. Plan: CBC, CMP, abdomen CT <SUZI Cotto - Last Filed: 12/25/22 13:10> [place] Patient is a 57 yo male with a hx of Diverticulysis. HE says he's had LLQ pain for a week with non-bloody diarrhea. He has not had any nausea or vomiting. He states he ate a steak with a pepper seed before this pain occurred. Plan: CBC, CMP, abdomen CT -1457--no leukocytosis. H&H at patient's baseline. Labs otherwise reassuring CT abdomen pelvis wo IV con IMPRESSION: Sigmoid diverticulitis. ? Fleischner guidelines were followed. > will p.o. challenge. Patient reports symptomatic improvement after IM Toradol. Tolerating p.o. in the ED without difficulty, plan to discharge home with p.o. antibiotics Results discussed with patient including worrisome signs and symptoms and strict return precautions, and when to return to the emergency department. They verbalized understanding and feel safe for discharge at this time. <SUZI Jordan - Last Filed: 12/25/22 16:32> Medical Decision Making Medical Decision Making [facility] Narrative: 57-year-old male with a past medical history BPH, GERD, diverticulosis, HLD, HTN, depression, presenting to the ED complaining of left lower quadrant abdominal pain and nonbloody diarrhea x1 week s/p eating steak with seasoning/pepper seeds. On exam vital signs stable, NAD, nontoxic appearing, abdomen soft the suprapubic/LLQ tenderness, no rebound or guarding, no CVAT. Concern for diverticulitis vs UTI vs appendicitis. Lower suspicion for pancreatitis, cholecystitis/lithiasis, renal stone/pyelo Plan: Labs, UA, CT AP, pain management Please refer to course for remaining clinical decision making, interpretation of labs/imaging results, and discussions with consultants and/or family members. <SUZI Jordan - Last Filed: 12/25/22 16:32> Differential Diagnosis Differential Diagnoses: The differential diagnosis associated with the presentation includes <SUZI Jordan - Last Filed: 12/25/22 16:32> As above <SUZI Jordan - Last Filed: 12/25/22 16:32> Admission/Observation Consideration of admission/observation: Escalation of care including admission/observation considered <SUZI Jordan - Last Filed: 12/25/22 16:32> Lab Data [facility] Lab Attestation statement: I reviewed the patient's lab results. <SUZI Jordan Last Filed: 12/25/22 16:32> Result Diagrams: 12/25/22 13:13 12/25/22 13:13 <SUZI Cotto - Last Filed: 12/25/22 13:10> Labs: Lab Results 12/25/22 12/25/22 12/25/22 Range/Units 13:13 13:13 14:56 WBC 10.3 (4.8-10.8) X10*3/uL RBC 4.83 (4.60-5.80) X10*6/uL Hgb 13.2 L (14.0-18.0) g/dl Hct 40.5 L (42.0-52.0) % MCV 83.9 (80.0-98.0) fL MCH 27.3 (27.0-33.0) pg MCHC 32.6 (31.0-36.0) g/dl RDW 13.3 (11.0-16.0) % Plt Count 217 (160-400) X10*3/uL MPV 11.2 (9.4-12.4) fL Immature Gran % (Auto) 0.4 (0.0-0.4) % Neut % (Auto) 64.7 (45-73) % Lymph % (Auto) 25.0 (20-40) % Towns % (Auto) 7.7 (2-11) % Eos % (Auto) 1.9 (0-4) % Baso % (Auto) 0.3 (0-2) % Lymph # (Auto) 2.6 (1.2-4.9) X10*3/uL Towns # (Auto) 0.8 (0.1-1.2) X10*3/uL Eos # (Auto) 0.2 (0.0-0.4) X10*3/uL Baso # (Auto) 0.0 (0.0-0.2) X10*3/uL Abs Immat Gran (auto) 0.04 H (0.00-0.03) X10*3/uL Absolute Neuts (auto) 6.7 (2.0-8.3) x10*3/uL Absolute Nucleated RBC 0.000 (0.0-0.012) X10*3/uL Nucleated RBC % (auto) 0.0 (0.0-0.2) /100WBC Sodium 143 (135-145) mmol/L Potassium 3.5 (3.3-5.1) mmol/L Chloride 105 (96-108) mmol/L Carbon Dioxide 32 H (22-29) mmol/L Anion Gap 10 L (12-20) BUN 9 (9-16) mg/dL Creatinine 1.09 (0.5-1.4) mg/dL Estim Creat Clear Calc 91.7 Estimated GFR > 60 Random Glucose 105 (60-115) mg/dL Calcium 9.3 (8.4-10.2) mg/dL Magnesium 1.8 (1.6-2.6) mg/dL Total Bilirubin 0.7 (0.0-1.0) mg/dL Direct Bilirubin 0.2 (0.0-0.5) mg/dL AST 13 (5-37) U/L ALT 17 (0-40) U/L Alkaline Phosphatase 96 (39-117) U/L Total Protein 7.2 (6.5-8.0) g/dL Albumin 4.4 (3.5-5.0) g/dL Urine Color Yellow Urine Appearance Clear Urine pH 7.5 (5.0-9.0) Ur Specific [place] 1.020 (1.005-1.025) Urine Protein Negative (Neg-Trace) mg/dL Urine Glucose (UA) Negative (Negative) mg/dL Urine Ketones Negative (Negative) mg/dL Urine Blood Negative (Negative) Urine Nitrite Negative (Negative) Ur Leukocyte Esterase Negative (Negative) <SUZI Cotto - Last Filed: 12/25/22 13:10> Lab Results 12/25/22 12/25/22 12/25/22 Range/Units 13:13 13:13 14:56 WBC 10.3 (4.8-10.8) X10*3/uL RBC 4.83 (4.60-5.80) X10*6/uL Hgb 13.2 L (14.0-18.0) g/dl Hct 40.5 L (42.0-52.0) % MCV 83.9 (80.0-98.0) fL MCH 27.3 (27.0-33.0) pg MCHC 32.6 (31.0-36.0) g/dl RDW 13.3 (11.0-16.0) % Plt Count 217 (160-400) X10*3/uL MPV 11.2 (9.4-12.4) fL Immature Gran % (Auto) 0.4 (0.0-0.4) % Neut % (Auto) 64.7 (45-73) % Lymph % (Auto) 25.0 (20-40) % Towns % (Auto) 7.7 (2-11) % Eos % (Auto) 1.9 (0-4) % Baso % (Auto) 0.3 (0-2) % Lymph # (Auto) 2.6 (1.2-4.9) X10*3/uL Towns # (Auto) 0.8 (0.1-1.2) X10*3/uL Eos # (Auto) 0.2 (0.0-0.4) X10*3/uL Baso # (Auto) 0.0 (0.0-0.2) X10*3/uL Abs Immat Gran (auto) 0.04 H (0.00-0.03) X10*3/uL Absolute Neuts (auto) 6.7 (2.0-8.3) x10*3/uL Absolute Nucleated RBC 0.000 (0.0-0.012) X10*3/uL Nucleated RBC % (auto) 0.0 (0.0-0.2) /100WBC Sodium 143 (135-145) mmol/L Potassium 3.5 (3.3-5.1) mmol/L Chloride 105 (96-108) mmol/L Carbon Dioxide 32 H (22-29) mmol/L Anion Gap 10 L (12-20) BUN 9 (9-16) mg/dL Creatinine 1.09 (0.5-1.4) mg/dL Estim Creat Clear Calc 91.7 Estimated GFR > 60 Random Glucose 105 (60-115) mg/dL Calcium 9.3 (8.4-10.2) mg/dL Magnesium 1.8 (1.6-2.6) mg/dL Total Bilirubin 0.7 (0.0-1.0) mg/dL Direct Bilirubin 0.2 (0.0-0.5) mg/dL AST 13 (5-37) U/L ALT 17 (0-40) U/L Alkaline Phosphatase 96 (39-117) U/L Total Protein 7.2 (6.5-8.0) g/dL Albumin 4.4 (3.5-5.0) g/dL Urine Color Yellow Urine Appearance Clear Urine pH 7.5 (5.0-9.0) Ur Specific [place] 1.020 (1.005-1.025) Urine Protein Negative (Neg-Trace) mg/dL Urine Glucose (UA) Negative (Negative) mg/dL Urine Ketones Negative (Negative) mg/dL Urine Blood Negative (Negative) Urine Nitrite Negative (Negative) Ur Leukocyte Esterase Negative (Negative) <SUZI Jordan - Last Filed: 12/25/22 16:32> Radiology Impression Discussion of test interpretation with radiology: I have reviewed the radiologist's reading. <SUZI Jordan - Last Filed: 12/25/22 16:32> External Record Review External record reviewed: Inpatient record, Office record, Outpatient record, Prior outpatient labs, Prior outpatient radiology, Primary care record and Outside ED record <SUZI Jordan - Last Filed: 12/25/22 16:32> Tests considered The following testing was considered but not selected: As above <SUZI Jordan - Last Filed: 12/25/22 16:32> Medications Administered Discontinued Medications Generic Name Dose Route Start Last Admin Trade Name Freq PRN Reason Stop Dose Admin Ketorolac Tromethamine 30 mg 12/25/22 14:48 12/25/22 15:17 Ketorolac Tromethamine 30 Mg/Ml Vial IM 12/25/22 14:49 30 mg ONCE ONE Administration <SUZI Cotto - Last Filed: 12/25/22 13:10> Medications Administered Discontinued Medications Generic Name Dose Route Start Last Admin Trade Name Freq PRN Reason Stop Dose Admin Ketorolac Tromethamine 30 mg 12/25/22 14:48 12/25/22 15:17 Ketorolac Tromethamine 30 Mg/Ml Vial IM 12/25/22 14:49 30 mg ONCE ONE Administration <SUZI Jordan - Last Filed: 12/25/22 16:32> Discharge Plan Discharge Clinical Impression: Sigmoid diverticulitis <SUZI Cotto - Last Filed: 12/25/22 13:10> Patient Disposition: Home, Self-Care <SUZI Cotto - Last Filed: 12/25/22 13:10> Instructions: Diverticulitis (ED), Diverticulitis Diet (ED) <SUZI Cotto - Last Filed: 12/25/22 13:10> Additional Instructions: Your blood work is reassuring. Your CT scan shows sigmoid diverticulitis. Please practice a diverticulitis diet, please drink plenty of fluids. Clear liquids are recommended Ketorolac as an anti-inflammatory/pain medication, take with food In addition you may take Tylenol Augmentin is antibiotic please take as prescribed Please follow-up with your GI doctor and primary care doctor Is symptoms persist or worsen, pain becomes unbearable, he developed fever, persistent nausea/vomiting or bloody diarrhea return to the ED <SUZI Cotto - Last Filed: 12/25/22 13:10> Prescriptions: New amoxicillin-pot clavulanate 875-125 mg tablet 1 tab PO BID 7 Days Qty: 14 0RF ketorolac 10 mg tablet 10 mg PO TID PRN (Reason: pain) 5 Days Qty: 15 0RF No Action sucralfate 1 gram tablet 1 g PO BID 21 Days Qty: 42 1RF amlodipine 10 mg tablet 10 mg PO DAILY 90 Days Qty: 90 1RF pantoprazole 40 mg tablet,delayed release (DR/EC) 40 mg PO DAILY 90 Days Qty: 90 3RF dutasteride 0.5 mg capsule 0.5 mg PO DAILY 90 Days Qty: 90 1RF atorvastatin 20 mg tablet 20 mg PO DAILY 90 Days Qty: 90 3RF triamcinolone acetonide [Nasacort Allergy] 55 mcg aerosol,spray 1 spray intranasal DAILY 30 Days Qty: 16.9 0RF Rx Instructions: administer into each nostril Citrucel 500 mg tablet 500 mg PO BID Qty: 60 5RF sucralfate [Carafate] 100 mg/mL suspension 10 ml PO BID Qty: 420 0RF <SUZI Cotto - Last Filed: 12/25/22 13:10> Referrals: [facility] [Provider Group] Marzena Burns MD [Primary Care Provider] - 3 days <SUZI Cotto - Last Filed: 12/25/22 13:10> Stand Alone Forms: Work/School Release <SUZI Cotto - Last Filed: 12/25/22 13:10> Interventions: ED Discharge Assessment Last Done: 12/25/22 16:03 <SUZI Cotto - Last Filed: 12/25/22 13:10> Discharge Date/Time: 12/25/22 16:03 <SUZI Cotto - Last Filed: 12/25/22 13:10>
[2022-12-25 13:19] LABS: MANUAL DIFF FLAG NO
[2022-12-25 13:21] LABS: Basophils Percent Auto 0.3 % (0-2); Eosinophils Absolute Auto 0.2 X10*3/uL (0.0-0.4); Eosinophils Percent Auto 1.9 % (0-4); Hematocrit 40.5 % (42.0-52.0); Hemoglobin 13.2 g/dl (14.0-18.0); Imm Gran Abs Auto 0.04 X10*3/uL (0.00-0.03); Imm Gran Pct Auto 0.4 % (0.0-0.4); Lymphocytes Absolute Auto 2.6 X10*3/uL (1.2-4.9); Mean Corpuscular HGB Conc 32.6 g/dl (31.0-36.0); Mean Corpuscular Hemoglobin 27.3 pg (27.0-33.0); Mean Corpuscular Volume 83.9 fL (80.0-98.0); Mean Platelet Volume 11.2 fL (9.4-12.4); Monocytes Absolute Auto 0.8 X10*3/uL (0.1-1.2); Monocytes Percent Auto 7.7 % (2-11); Neutrophils Absolute Auto 6.7 x10*3/uL (2.0-8.3); Neutrophils Percent Auto 64.7 % (45-73); Platelet Count 217 X10*3/uL (160-400); Red Blood Count 4.83 X10*6/uL (4.60-5.80); Red Cell Distribution Width 13.3 % (11.0-16.0); White Blood Count 10.3 X10*3/uL (4.8-10.8)
[2022-12-25 13:35] LABS: Alanine Aminotransferase 17 U/L (0-40); Albumin Level 4.4 g/dL (3.5-5.0); Alkaline Phosphatase 96 U/L (39-117); Anion Gap 10 (12-20); Aspartate Amino Transferase 13 U/L (5-37); Bilirubin Direct 0.2 mg/dL (0.0-0.5); Bilirubin Total 0.7 mg/dL (0.0-1.0); Blood Urea Nitrogen 9 mg/dL (9-16); Calcium 9.3 mg/dL (8.4-10.2); Carbon Dioxide 32 mmol/L (22-29); Chloride 105 mmol/L (96-108); Creatinine Clr Calc Pharmacy 91.7; Estimated Glomerular Filt Rate > 60; Glucose Random 105 mg/dL (60-115); Magnesium 1.8 mg/dL (1.6-2.6); Potassium 3.5 mmol/L (3.3-5.1); Sodium 143 mmol/L (135-145); Total Protein 7.2 g/dL (6.5-8.0)
[2022-12-25] MEDS: Ketorolac Tromethamine 30 MG/ML VIAL IM (15:17)
[2022-12-25 15:25] LABS: Appearance Urine Clear; Color Urine Yellow; Glucose Urine UA Negative (Negative); Leukocyte Esterase Urine Negative (Negative); Nitrite Urine Negative (Negative); PH 7.5 (5.0-9.0); Urine Blood Negative (Negative); Urine Ketones Negative (Negative); Urine Protein Negative (Neg-Trace)
[2022-12-25 16:01] VITALS: BP 166/93; PULSE 64; RESP 16; TEMP 36.5; O2SAT 98
== END 2022-12-25 16:03 | disposition home or self-care (01) ==
PROVIDERS: Physician Assistant; Emergency Provider Student in an Organized Health Care Education/Training Program; PCP Internal Medicine
DX: K57.32 Diverticulitis of large intestine without perforation or abscess without bleeding (principal); R10.2 Pelvic and perineal pain; Z79.899 Other long term (current) drug therapy
CPT/HCPCS: 36415; 74176; 80048; 80076; 81003; 83735; 85025; 96372; 99283; 99284; J1885

== ENCOUNTER 2023-02-03 06:58 | Outpatient (REF) | payer OTHER, SELFPAY ==
[2023-02-03 08:13] LABS: Alanine Aminotransferase 26 U/L (0-40); Albumin Level 4.3 g/dL (3.5-5.0); Alkaline Phosphatase 85 U/L (39-117); Anion Gap 12 (12-20); Aspartate Amino Transferase 16 U/L (5-37); Bilirubin Total 0.4 mg/dL (0.0-1.0); Blood Urea Nitrogen 12 mg/dL (9-16); Calcium 9.1 mg/dL (8.4-10.2); Carbon Dioxide 27 mmol/L (22-29); Chloride 106 mmol/L (96-108); Cholesterol 180 mg/dL; Estimated Glomerular Filt Rate > 60; Glucose Fasting 99 mg/dL (60-99); HDL Cholesterol 52 mg/dL; LDL Cholesterol Calculated 95 mg/dl; Potassium 3.2 mmol/L (3.3-5.1); Sodium 142 mmol/L (135-145); Triglycerides 167 mg/dL
== END 2023-02-03 06:59 | disposition home or self-care (01) ==
LOC: HO.LAB 06:58
PROVIDERS: PCP Internal Medicine; Visit Provider Internal Medicine
DX: E78.5 Hyperlipidemia, unspecified (principal); I10 Essential (primary) hypertension
CPT/HCPCS: 36415; 80053; 80061

== ENCOUNTER 2023-04-17 09:02 | Emergency (ER) | payer BC, OTHER, SELFPAY ==
--- NOTE | ~2023-04-17 | CT_ITS ---
EXAMINATION: CT ABDOMEN AND PELVIS WITHOUT CONTRAST CLINICAL INFORMATION: Abdominal pain. COMPARISON: 12/25/2022 TECHNIQUE: Multidetector volumetric imaging was performed from the superior aspect of the liver through the pubic symphysis. Sagittal and coronal reformatted images were obtained on the technologist's workstation. This CT examination was performed using dose optimization techniques as appropriate, variously including the following: *Automated exposure control *Adjustment of mA and/or kV according to patient size (this includes techniques or standardized protocols for targeted exams where dose is matched to indication/reason for exam; i.e. extremities or head) *Use of iterative reconstruction technique DLP: 689 mGy-cm FINDINGS: LUNG BASES: The visualized lung bases are unremarkable. LIVER, GALLBLADDER, AND BILIARY TREE: The noncontrast liver is decreased in attenuation. 2.0 cm left hepatic cyst. Few additional hypodensities are too small to characterize. There are scattered parenchymal calcifications. No biliary ductal dilatation is present. The gallbladder is unremarkable with no evidence of radiopaque gallstones, gallbladder wall thickening, or obvious pericholecystic inflammatory changes. PANCREAS: Unremarkable. SPLEEN: Unremarkable. ADRENAL GLANDS: Unremarkable. KIDNEYS AND URETERS: The kidneys are symmetric in size. No hydronephrosis or calculus seen. Nonspecific perinephric stranding. BLADDER: Unremarkable. GASTROINTESTINAL TRACT: Subtle pericolonic inflammatory changes involving the mid descending colon with evidence of underlying diverticular disease. There is wall thickening of the mid sigmoid colon likely due to hypertrophic changes. The appearance is similar to the 12/25/2022 examination. No small bowel obstruction. Appendix is within normal limits. Moderate fecal retention in the colon. ABDOMINAL WALL: Small fat-containing umbilical hernia. LYMPH NODES: No bulky abdominal or pelvic lymphadenopathy. VASCULAR: Normal caliber abdominal aorta. PELVIC VISCERA: Mildly enlarged prostate gland. OSSEOUS STRUCTURES: No destructive bone lesions. CT/CT abdomen pelvis wo IV con IMPRESSION: Subtle pericolonic inflammatory changes involving the mid descending colon with evidence of underlying diverticular disease. This could represent early acute diverticulitis. Advise clinical correlation.
[2023-04-17 09:19] VITALS: BP 187/93; PULSE 60; RESP 16; TEMP 36.4; O2SAT 99; BMI 34.4
[2023-04-17 09:48] LABS: MANUAL DIFF FLAG NO
[2023-04-17 09:50] LABS: Basophils Percent Auto 0.5 % (0-2); Eosinophils Absolute Auto 0.1 X10*3/uL (0.0-0.4); Eosinophils Percent Auto 1.1 % (0-4); Hematocrit 41.8 % (42.0-52.0); Hemoglobin 13.8 g/dl (14.0-18.0); Imm Gran Abs Auto 0.03 X10*3/uL (0.00-0.03); Imm Gran Pct Auto 0.4 % (0.0-0.4); Lymphocytes Absolute Auto 2.9 X10*3/uL (1.2-4.9); Lymphocytes Percent Auto 38.1 % (20-40); Mean Corpuscular Hemoglobin 27.1 pg (27.0-33.0); Mean Platelet Volume 11.6 fL (9.4-12.4); Monocytes Absolute Auto 0.5 X10*3/uL (0.1-1.2); Monocytes Percent Auto 7.1 % (2-11); Neutrophils Percent Auto 52.8 % (45-73); Platelet Count 212 X10*3/uL (160-400); Red Cell Distribution Width 13.1 % (11.0-16.0); White Blood Count 7.5 X10*3/uL (4.8-10.8)
[2023-04-17 09:57] LABS: IDNOW Serial# 08D9AD1C; Strep A Nucleic Acid Negative (Negative)
[2023-04-17 10:01] LABS: Alanine Aminotransferase 24 U/L (0-40); Albumin Level 4.5 g/dL (3.5-5.0); Alkaline Phosphatase 91 U/L (39-117); Anion Gap 12 (12-20); Aspartate Amino Transferase 18 U/L (5-37); Bilirubin Total 0.5 mg/dL (0.0-1.0); Blood Urea Nitrogen 9 mg/dL (9-16); Calcium 9.2 mg/dL (8.4-10.2); Carbon Dioxide 29 mmol/L (22-29); Chloride 103 mmol/L (96-108); Creatinine Clr Calc Pharmacy 104.7; Estimated Glomerular Filt Rate > 60; Glucose Random 135 mg/dL (60-115); Potassium 3.1 mmol/L (3.3-5.1); Sodium 141 mmol/L (135-145); Total Protein 7.6 g/dL (6.5-8.0)
--- NOTE | 2023-04-17 15:16 | ED_ITS ---
HPI - General Adult General Chief complaint: General Medical Stated complaint: sore throat Time Seen by Provider: 04/17/23 15:14 Source: patient, RN notes reviewed and old records reviewed Mode of arrival: ambulatory Limitations: no limitations History of Present Illness HPI narrative: 58-year-old male with past medical history of diverticulosis of colon, depression, BPH, GERD, hypertension, dyslipidemia is here today for abdominal pain. Patient reports occasional stools postprandially and then constipation. Recently in the last 2 days patient reports softer stools, however today patient reports to be constipated and only moving small amount. Patient has a history of diverticulosis seen by GI last year for abdominal pain. Patient does have a history of diverticulitis In the past. Last seen in the ER in December left sigmoid diverticulitis found.. CT scan done while waiting and showed subtle pericolonic inflammatory changes. Patient denies any nausea or vomiting. Patient denies melena, hematochezia, unintentional weight loss or ribbon like stools. Last colonoscopy over 5 years ago. Will give him 1st dose of antibiotics. Labs show no leukocytosis . Patient denies fever chills, nausea, vomiting, hematuria, dysuria Onset (ago): day(s) Location: abdomen Radiation: non-radiation Severity: moderate Related Data Previous Rx's Medication Instructions Recorded atorvastatin 20 mg tablet 20 mg PO DAILY 90 days #90 tabs 10/23/21 dutasteride 0.5 mg capsule 0.5 mg PO DAILY 90 days #90 caps 10/23/21 pantoprazole 40 mg tablet,delayed 40 mg PO DAILY 90 days #90 tabs 10/23/21 release methylcellulose (laxative) 500 mg 500 mg PO BID #60 tabs 12/26/21 tablet (Citrucel) sucralfate 100 mg/mL oral 10 ml PO BID #420 mL 12/26/21 suspension (Carafate) triamcinolone acetonide 55 mcg 1 spray intranasal DAILY 30 days 12/26/21 nasal spray aerosol (Nasacort #16.9 mL Allergy) ketorolac 10 mg tablet 10 mg PO TID PRN pain 5 days #15 12/25/22 tabs lisinopril 40 mg tablet 40 mg PO DAILY 90 days #90 tabs 01/01/23 blood pressure monitor (Blood #1 ea 01/20/23 Pressure Kit) amlodipine 5 mg tablet 5 mg PO DAILY 90 days #90 tabs 01/31/23 levofloxacin 500 mg tablet 500 mg PO DAILY #7 tabs 04/17/23 metronidazole 500 mg tablet 500 mg PO Q12H 7 days #14 tabs 04/17/23 sennosides 8.6 mg tablet 17.2 mg (2 x 8.6 mg) PO BEDTIME 04/17/23 (Evac-U-Gen (sennosides)) #60 tabs Allergies Allergy/AdvReac Type Severity Reaction Status Date / Time No Known Allergies Allergy Verified 04/17/23 09:19 Review of Systems 2 Constitutional: Constitutional: Reports as per HPI and Reports no additional constitutional complaints Eyes: Eyes: Reports no additional eye complaints ENT: Reports system reviewed and no additional complaints, except as documented Cardiovascular: Cardiovascular: Reports no additional cardiovascular complaints Respiratory: Respiratory: Reports no additional respiratory complaints Gastrointestinal: Gastrointestinal: Denies hematochezia, Reports constipation, Reports loose stools, Denies nausea and Denies vomiting Genitourinary: Genitourinary: Reports no additional male genitourinary complaints Musculoskeletal: Musculoskeletal: Reports no additional musculoskeletal complaints [facility] Past Medical History Medical History Allergic rhinitis BPH (benign prostatic hyperplasia) Chronic GERD Class 1 obesity with body mass index (BMI) of 31.0 to 31.9 in adult Diverticulosis Diverticulosis of colon Dyslipidemia Essential hypertension Hand numbness Ingrown toenail Left knee pain Mild recurrent major depression Physical exam Precordial chest pain Surgical History History of hemorrhoids History of lipoma History of throat surgery Family History Family History Mother Diabetes History of open heart surgery Father History of open heart surgery Family/Other Mental health disorder Social History Social History Housing: House Alcohol intake: current Alcohol intake frequency: a few times a month Alcohol type: beer and hard liquor Patient Tobacco Use Status: Former Tobacco user Tobacco use type: Cigarette e-Cigarette/Vaping Use: Never Used Second Hand Smoke Exposure: No Substance Use Type: Marijuana Advance Directives: No Advance Directives Information Provided: No service: No Current occupational status: employed Current occupational exposures/hazards: No Cognitive needs: No Hearing needs: No Vision needs: Yes Physical Exam ED Vital Signs: Vital Signs - 24 hr 04/17/23 09:19 Temperature 97.5 F Pulse Rate 60 Respiratory Rate 16 Blood Pressure 187/93 H Pulse Oximetry 99 Oxygen Delivery Method Room Air BMI result Body Mass Index 34.4 Const General: healthy appearing, no acute distress and well developed Nutritional Appearance: well nourished Orientation/consciousness: patient oriented x3 HENMT Head: Yes normal to inspection, Yes normocephalic and Yes atraumatic Face and sinus: Yes normal facial exam Mouth: Normal oral and palatal mucosa present Throat: Yes posterior oropharynx normal, Yes tonsils normal and Yes uvula midline Eyes General: appearance normal, both eyes and all related structures Neck Neck: Yes normal visual inspection, Yes full ROM and Yes trachea midline Thyroid: Thyroid normal Resp Effort & Inspection: normal respiratory effort, able to speak in complete sentences, no tracheal deviation and symmetric chest movement Auscultation: clear to auscultation bilaterally Cardio Rate: regular rate Heart sounds: S1 normal heart sound present and S2 normal heart sound present GI Inspection: Yes normal to inspection and No distended Palpation (GI): Soft to palpation, not firm, nontender and No hepatosplenomegaly present Auscultation: normal bowel sounds General: Yes no CVA tenderness Back/Spine/Pelvis Back: no CVA tenderness Skin General skin exam: elasticity normal, turgor normal and dry skin Neuro General: patient oriented x3 Psych Appearance: grossly normal Mental Status: mental status grossly normal Speech and movement: Normal speech and movement present Course Course Course Narrative: 58-year-old male with past medical history of diverticulosis of colon, depression, BPH, GERD, hypertension, dyslipidemia is here today for abdominal pain. Patient reports occasional stools postprandially and then constipation. Recently in the last 2 days patient reports softer stools, however today patient reports to be constipated and only moving small amount. Patient has a history of diverticulosis seen by GI last year for abdominal pain. Patient does have a history of diverticulitis In the past. Last seen in the ER in December left sigmoid diverticulitis found.. CT scan done while waiting and showed subtle pericolonic inflammatory changes. Patient denies any nausea or vomiting. Patient denies melena, hematochezia, unintentional weight loss or ribbon like stools. Last colonoscopy over 5 years ago. Will give him 1st dose of antibiotics. Labs show no leukocytosis . Patient denies fever chills, nausea, vomiting, hematuria, dysuria Medications Administered Discontinued Medications Generic Name Dose Route Start Last Admin Trade Name Deandre PRN Reason Stop Dose Admin Levofloxacin 500 mg 04/17/23 15:34 04/17/23 16:02 Levofloxacin 500 Mg Tablet PO 04/17/23 15:35 500 mg ONCE ONE Administration Metronidazole 500 mg 04/17/23 15:38 04/17/23 16:02 Metronidazole 500 Mg Tablet PO 04/17/23 15:39 500 mg ONCE ONE Administration Medical Decision Making Medical Decision Making [facility] Narrative: 58-year-old male with past medical history of diverticulosis of colon, depression, BPH, GERD, hypertension, dyslipidemia is here today for abdominal pain. Patient reports occasional stools postprandially and then constipation. Recently in the last 2 days patient reports softer stools, however today patient reports to be constipated and only moving small amount. Patient has a history of diverticulosis seen by GI last year for abdominal pain. Patient does have a history of diverticulitis In the past. Last seen in the ER in December left sigmoid diverticulitis found.. CT scan done while waiting and showed subtle pericolonic inflammatory changes. Patient denies any nausea or vomiting. Patient denies melena, hematochezia, unintentional weight loss or ribbon like stools. Last colonoscopy over 5 years ago. Will give him 1st dose of antibiotics. Labs show no leukocytosis . Patient denies fever chills, nausea, vomiting, hematuria, dysuria Differential Diagnosis Differential Diagnoses: The differential diagnosis associated with the presentation includes Colitis, Crohn's, diverticulitis, Lab Data [facility] Lab Attestation statement: I reviewed the patient's lab results. 04/17/23 09:38 04/17/23 09:38 Labs: Lab Results 04/17/23 04/17/23 Range/Units 09:38 09:41 WBC 7.5 (4.8-10.8) X10*3/uL RBC 5.10 (4.60-5.80) X10*6/uL Hgb 13.8 L (14.0-18.0) g/dl Hct 41.8 L (42.0-52.0) % MCV 82.0 (80.0-98.0) fL MCH 27.1 (27.0-33.0) pg MCHC 33.0 (31.0-36.0) g/dl RDW 13.1 (11.0-16.0) % Plt Count 212 (160-400) X10*3/uL MPV 11.6 (9.4-12.4) fL Immature Gran % (Auto) 0.4 (0.0-0.4) % Neut % (Auto) 52.8 (45-73) % Lymph % (Auto) 38.1 (20-40) % [place] % (Auto) 7.1 (2-11) % Eos % (Auto) 1.1 (0-4) % Baso % (Auto) 0.5 (0-2) % Lymph # (Auto) 2.9 (1.2-4.9) X10*3/uL [place] # (Auto) 0.5 (0.1-1.2) X10*3/uL Eos # (Auto) 0.1 (0.0-0.4) X10*3/uL Baso # (Auto) 0.0 (0.0-0.2) X10*3/uL Abs Immat Gran (auto) 0.03 (0.00-0.03) X10*3/uL Absolute Neuts (auto) 4.0 (2.0-8.3) x10*3/uL Absolute Nucleated RBC 0.000 (0.0-0.012) X10*3/uL Nucleated RBC % (auto) 0.0 (0.0-0.2) /100WBC Sodium 141 (135-145) mmol/L Potassium 3.1 L (3.3-5.1) mmol/L Chloride 103 (96-108) mmol/L Carbon Dioxide 29 (22-29) mmol/L Anion Gap 12 (12-20) BUN 9 (9-16) mg/dL Creatinine 0.91 (0.5-1.4) mg/dL Estim Creat Clear Calc 104.7 Estimated GFR > 60 Random Glucose 135 H (60-115) mg/dL Calcium 9.2 (8.4-10.2) mg/dL Total Bilirubin 0.5 (0.0-1.0) mg/dL AST 18 (5-37) U/L ALT 24 (0-40) U/L Alkaline Phosphatase 91 (39-117) U/L Total Protein 7.6 (6.5-8.0) g/dL Albumin 4.5 (3.5-5.0) g/dL S. pyogenes GrpA FERNANDO Negative (Negative) Independent Interpretation I performed an independent interpretation of an: CT Scan Radiology Impression Discussion of test interpretation with radiology: I have reviewed the radiologist's reading. Radiologist Impression: FINDINGS: LUNG BASES: The visualized lung bases are unremarkable. LIVER, GALLBLADDER, AND BILIARY TREE: The noncontrast liver is decreased in attenuation. 2.0 cm left hepatic cyst. Few additional hypodensities are too small to characterize. There are scattered parenchymal calcifications. No biliary ductal dilatation is present. The gallbladder is unremarkable with no evidence of radiopaque gallstones, gallbladder wall thickening, or obvious pericholecystic inflammatory changes. PANCREAS: Unremarkable. SPLEEN: Unremarkable. ADRENAL GLANDS: Unremarkable. KIDNEYS AND URETERS: The kidneys are symmetric in size. No hydronephrosis or calculus seen. Nonspecific perinephric stranding. BLADDER: Unremarkable. GASTROINTESTINAL TRACT: Subtle pericolonic inflammatory changes involving the mid descending colon with evidence of underlying diverticular disease. There is wall thickening of the mid sigmoid colon likely due to hypertrophic changes. The appearance is similar to the 12/25/2022 examination. No small bowel obstruction. Appendix is within normal limits. Moderate fecal retention in the colon. ABDOMINAL WALL: Small fat-containing umbilical hernia. LYMPH NODES: No bulky abdominal or pelvic lymphadenopathy. VASCULAR: Normal caliber abdominal aorta. PELVIC VISCERA: Mildly enlarged prostate gland. OSSEOUS STRUCTURES: No destructive bone lesions. CT/CT abdomen pelvis wo IV con IMPRESSION: Subtle pericolonic inflammatory changes involving the mid descending colon with evidence of underlying diverticular disease. This could represent early acute diverticulitis. Advise clinical correlation. Discharge Plan Discharge Clinical Impression: Diverticulosis Diverticulitis large intestine Qualifiers: Diverticulitis bleeding: without bleeding Diverticulitis complication: without perforation or abscess Qualified Code(s): K57.32 - Diverticulitis of large intestine without perforation or abscess without bleeding Abdominal pain Qualifiers: Abdominal location: left lower quadrant Qualified Code(s): R10.32 - Left lower quadrant pain Patient Disposition: Home, Self-Care Instructions: Diverticulitis (ED), Diverticulosis (ED), Diverticulitis Diet (ED), Abdominal Pain (ED) Additional Instructions: You were seen here today for abdominal pain. You have diverticulosis of left side of your colon and mild inflammation. You will be sent home with antibiotics and 1st dose was given to you in the ER. Please finish all the antibiotics. Follow-up with your primary care provider as well as with your GI specialist. Please make sure that you eat high-fiber diet. Take probiotic daily. Make sure you drink plenty fluids. Make sure that you moving your bowels every day. Please return to emergency department if your symptoms will get worse. Prescriptions: New metronidazole 500 mg tablet 500 mg PO Q12H 7 Days Qty: 14 0RF levofloxacin 500 mg tablet 500 mg PO DAILY Qty: 7 0RF sennosides [Evac-U-Gen (sennosides)] 8.6 mg tablet 17.2 mg PO BEDTIME Qty: 60 0RF No Action (DME) blood pressure monitor [Blood Pressure Kit] Kit See Rx Instructions .Route Qty: 1 0RF Rx Instructions: As directed amlodipine 5 mg tablet 5 mg PO DAILY 90 Days Qty: 90 1RF ketorolac 10 mg tablet 10 mg PO TID PRN (Reason: pain) 5 Days Qty: 15 0RF pantoprazole 40 mg tablet,delayed release (DR/EC) 40 mg PO DAILY 90 Days Qty: 90 3RF dutasteride 0.5 mg capsule 0.5 mg PO DAILY 90 Days Qty: 90 1RF atorvastatin 20 mg tablet 20 mg PO DAILY 90 Days Qty: 90 3RF lisinopril 40 mg tablet 40 mg PO DAILY 90 Days Qty: 90 1RF triamcinolone acetonide [Nasacort Allergy] 55 mcg aerosol,spray 1 spray intranasal DAILY 30 Days Qty: 16.9 0RF Rx Instructions: administer into each nostril Citrucel 500 mg tablet 500 mg PO BID Qty: 60 5RF sucralfate [Carafate] 100 mg/mL suspension 10 ml PO BID Qty: 420 0RF Referrals: Rhea Martin PA-C [[facility]] - ( patient was seen for diverticulitis last year, will need colonoscopy) Marzena Burns MD [Primary Care Provider] - Stand Alone Forms: Work/School Release Interventions: ED Discharge Assessment Last Done: 04/17/23 16:05 Discharge Date/Time: 04/17/23 16:06
[2023-04-17] MEDS: metroNIDAZOLE 500 MG TABLET PO (16:02)
[2023-04-17] MEDS: levoFLOXacin 500 MG TABLET PO (16:02)
== END 2023-04-17 16:06 | disposition home or self-care (01) ==
PROVIDERS: Emergency Provider Emergency Medicine; PCP Internal Medicine
DX: K57.32 Diverticulitis of large intestine without perforation or abscess without bleeding (principal); J02.9 Acute pharyngitis, unspecified; R10.32 Left lower quadrant pain; Z79.899 Other long term (current) drug therapy; Z20.822 Contact with and (suspected) exposure to COVID-19
CPT/HCPCS: 36415; 74176; 80053; 85025; 87651; 99282; 99283; 99284

== ENCOUNTER 2023-05-06 16:19 | Outpatient (AMB) | payer BC, OTHER, SELFPAY ==
--- NOTE | 2023-05-06 16:22 | MHC.PC.OV ---
Vital Signs 05/06/23 16:23 05/06/23 16:49 Height 5 ft 9 in Weight 232 lb BMI 34.3 BP 174/100 H 170/100 H Blood Pressure Location Lt brachial Lt brachial Position Sitting Sitting Intake Visit Reasons: pe Intake Note: Patient here for a physical exam Cathead Operator Required: No Accompanied by: Self / Same As Patient Allergies No Known Allergies Allergy (Verified 05/06/23 16:32) Medication List - Last Reconciled 05/06/23 by Marzena Mallory MD amlodipine 5 mg PO DAILY 90 days atorvastatin 20 mg PO DAILY 90 days blood pressure monitor (Blood Pressure Kit) As directed dutasteride 0.5 mg PO DAILY 90 days lisinopril 40 mg PO DAILY 90 days pantoprazole 40 mg PO DAILY 90 days sennosides (Evac-U-Gen (sennosides)) 17.2 mg (2 x 8.6 mg) PO BEDTIME Tobacco use date assessed: 01/01/23 Dental Screening Dental Screen Date: 05/06/23 Did you have a dental visit in the last 12 months?: Yes Did you have a dental problem in the last 6 months where you did not have access to dental care?: No Was dental information given to patient?: Patient has dentist HPI HPI Comments History of Present Illness Details This is a 58-year-old male that comes for his physical exam. Last colonoscopy as per patient was 10 years ago. Has elevated blood pressure and compliant with medications. I will increase amlodipine and blood pressure will be recheck in 3 weeks by nurse navigator. No chest pain or shortness of breath. [facility] Medical History Diverticulosis of colon Physical exam Allergic rhinitis Left knee pain Ingrown toenail Hand numbness Precordial chest pain Mild recurrent major depression Diverticulosis BPH (benign prostatic hyperplasia) Class 1 obesity with body mass index (BMI) of 31.0 to 31.9 in adult Chronic GERD Dyslipidemia Essential hypertension Surgical History History of throat surgery History of lipoma History of hemorrhoids Family History Mother Diabetes History of open heart surgery Father History of open heart surgery Family/Other Mental health disorder Social History (Updated 05/06/23 @ 16:38 by Marzena Mallory MD) Housing: House Alcohol intake: current Alcohol intake frequency: holidays/special occasions only Alcohol type: beer and hard liquor Patient Tobacco Use Status: Former Tobacco user Tobacco use type: Cigarette e-Cigarette/Vaping Use: Never Used Second Hand Smoke Exposure: No Substance Use Type: Marijuana service: No Current occupational status: employed Current occupational exposures/hazards: No Cognitive needs: No Hearing needs: No Vision needs: Yes Questionnaire Thrive Questionnaire Date Thrive assessed: 01/01/23 ROSA-7 AMB Questionnaire ROSA-7 Date ROSA - 7 assessed: 01/01/23 Source: Developed by Drs. Juan Antonio Patton, Rosalinda Dumont, Kendrick Mercer and colleagues, with an educational maite from [employer]. Review of Systems Const All systems reviewed & are unremarkable except as noted in HPI and below Eyes Reports no additional complaints, Denies change in vision and Denies other visual disturbances Card Denies chest pain at rest, Denies chest pain with activity, Denies edema, Denies irregular heart rhythm, Denies claudication, Denies dyspnea, Denies dyspnea on exertion, Denies orthopnea, Denies paroxysmal nocturnal dyspnea and Denies slow heart rate Resp Denies cough, Denies dyspnea and Denies dyspnea on exertion GI Denies abdominal pain, Denies change in bowel habits, Denies excessive flatus, Denies nausea and Denies vomiting Denies urinary hesitancy, Denies urinary incontinence and Denies urinary urgency Musc Denies abnormal gait, Denies atrophy, Denies deformity and Denies limited range of motion Skin/Breast Denies bleeding lesions, Denies changing lesions and Denies rash Neuro Denies abnormal gait and Denies lack of coordination Physical exam (Primary Care) Vital Signs: Last Vital Signs BP 174/100 H 05/06/23 16:23 BMI result Body Mass Index 34.3 Tobacco/Smoking Status: Tobacco use Status Tobacco use date assessed 01/01/23 05/06/23 16:27 Patient Tobacco Use Status Former Tobacco user 05/06/23 16:27 Tobacco use type Cigarette 05/06/23 16:27 e-Cigarette/Vaping Use Never Used 05/06/23 16:27 Thrive Assessment: Date of Thrive Assessment Date Thrive assessed 01/01/23 05/06/23 16:27 Const Orientation/consciousness: patient oriented x3 HENMT Head: Yes normal to inspection, Yes normocephalic and Yes atraumatic Ears: external ears normal Eyes General: appearance normal, both eyes and all related structures Eyelids: Yes eyelids normal Conjunctivae: conjunctivae normal Neck Neck: Yes normal visual inspection and Yes supple Resp Effort & Inspection: normal respiratory effort Auscultation: clear to auscultation bilaterally Cardio Jugular venous distension: no JVD Rate: regular rate Rhythm: regular rhythm Heart sounds: S1 normal heart sound present and S2 normal heart sound present GI Inspection: Yes normal to inspection Palpation (GI): Soft to palpation and nontender Auscultation: normal bowel sounds Skin General skin exam: no rashes or lesions noted Neuro General: patient oriented x3 and no focal motor deficits Extrem General: Yes full ROM Psych Appearance: grossly normal Assessment and Plan Assessment & Plan (1) Physical exam: Code(s): Z00.00 - Encounter for general adult medical examination without abnormal findings Plan: Repeat in a year Orders: Orders Lipid Panel Today E78.5 - Hyperlipidemia, unspecified Hepatitis C Antibody Today Z11.59 - Encounter for screening for other viral diseases PSA,Total (Free>4and<10) Today Z12.5 - Encounter for screening for malignant neoplasm of prostate Comprehensive [place]. Panel Fast Today K21.9 - Gastro-esophageal reflux disease without esophagitis HIV Ab/Ag Today Z11.4 - Encounter for screening for human immunodeficiency virus [HIV] Referrals Gastroenterology Referral K57.30 - Diverticulosis of large intestine without perforation or abscess without bleeding, R10.9 - Unspecified abdominal pain, Z12.11 - Encounter for screening for malignant neoplasm of colon Ophthalmology Referral H53.8 - Other visual disturbances Ear/Nose/Throat Referral H91.90 - Unspecified hearing loss, unspecified ear, R07.0 - Pain in throat Speech and Hearing Referral H91.90 - Unspecified hearing loss, unspecified ear Medications: New amlodipine 10 mg PO DAILY 90 tabs 1RF 90 days Discontinued amlodipine Discontinued Reason: Patient Completed Course 5 mg PO DAILY 90 tabs 1RF 90 days Coding Level of Care Code Est Pt Prev Care 40-64y(29980) Diagnoses Physical exam Z00.00 Time Spent (min) 32
[2023-05-06 16:23] VITALS: BP 174/100; BMI 34.3
[2023-05-06 16:49] VITALS: BP 170/100
== END 2023-05-06 16:45 | disposition home or self-care (01) ==
PROVIDERS: Visit Provider Internal Medicine
DX: Z00.00 Encounter for general adult medical examination without abnormal findings (principal)
CPT/HCPCS: 99396

== ENCOUNTER 2023-05-15 08:30 | Outpatient (REF) | payer BC, OTHER, SELFPAY | END 2023-05-15 08:31 | disposition home or self-care (01) | LOC: HO.LAB 08:30 | PROVIDERS: PCP Internal Medicine; Visit Provider Internal Medicine | DX: Z12.5 Encounter for screening for malignant neoplasm of prostate (principal); Z11.59 Encounter for screening for other viral diseases; Z11.4 Encounter for screening for human immunodeficiency virus [HIV]; K21.9 Gastro-esophageal reflux disease without esophagitis; E78.5 Hyperlipidemia, unspecified | CPT/HCPCS: 36415; 80053; 80061; 84153; 86803; 87389 ==

== ENCOUNTER 2025-06-16 16:26 | Outpatient (AMB) | payer BC, SELFPAY ==
[2025-06-16 16:31] VITALS: BP 188/80; PULSE 75; RESP 18; TEMP 36.3; O2SAT 96; BMI 32.3
--- NOTE | 2025-06-16 16:31 | MHC.PC.OV ---
Vital Signs 06/16/25 16:31 Height 5 ft 9 in Weight 218 lb 7 oz BMI 32.3 BP 188/80 H Blood Pressure Location Lt brachial Position Sitting Respiration 18 Pulse 75 Pulse Source Pulse Oximeter Temp 97.3 F Temp Source Temporal Artery Scan Pulse Oximetry (%) 96 Oxygen Delivery Method Room Air Intake Visit Reasons: follow up Research And Evaluation Manager Required: No Accompanied by: Self / Same As Patient Allergies No Known Allergies Allergy (Verified 06/16/25 16:45) Medication List - Last Reconciled 06/16/25 by Marzena Mallory MD atorvastatin 20 mg PO DAILY 90 days blood pressure monitor (Blood Pressure Kit) As directed dutasteride 0.5 mg PO DAILY 90 days elsptajziq-idaceplwe-jucucewyr 40-10-25 mg 1 tab PO DAILY pantoprazole 40 mg PO DAILY 90 days potassium chloride 20 mEq PO DAILY sucralfate (Carafate) 1 g PO BID tadalafil (Cialis) 20 mg PO DAILY PRN Tobacco use date assessed: 06/16/25 Dental Screening Dental Screen Date: 06/16/25 Did you have a dental visit in the last 12 months?: Yes Did you have a dental problem in the last 6 months where you did not have access to dental care?: No Was dental information given to patient?: Patient has dentist HPI HPI Comments History of Present Illness Details The patient is a 60-year-old male presenting for a follow-up visit for medication review and general health assessment. His blood pressure was noted to be slightly elevated during the visit. He reports taking a nfxbk-zi-aqk combination antihypertensive medication containing olmesartan 40 mg, amlodipine 10 mg, and hydrochlorothiazide 25 mg. The patient has a history of a significantly low potassium level. His reported medication list includes pantoprazole, carafate, tadalafil, dutasteride, doxazosin, mometasone, and a medication for constipation, although some of these, including potassium and carafate, do not appear in the current record. Past surgical history is significant for hemorrhoidectomy, lipoma excision, and throat surgery. He denies any history of cardiac catheterization. He was asked about having a colonoscopy. The patient reports occasional alcohol consumption and includes salads and vegetables in his diet. REPLACED BY [facility] Medical History (Updated 06/16/25 @ 17:01 by Marzena Mallory MD) Diverticulosis of colon Physical exam Allergic rhinitis Left knee pain Ingrown toenail Hand numbness Precordial chest pain Mild recurrent major depression Diverticulosis BPH (benign prostatic hyperplasia) Class 1 obesity with body mass index (BMI) of 31.0 to 31.9 in adult Chronic GERD Dyslipidemia Essential hypertension Surgical History History of throat surgery History of lipoma History of hemorrhoids Family History Mother Diabetes History of open heart surgery Father History of open heart surgery Family/Other Mental health disorder Social History (Updated 06/16/25 @ 16:54 by Marzena Mallory MD) Housing: House Alcohol intake: current Alcohol intake frequency: a few times a week Alcohol type: beer and hard liquor Patient Tobacco Use Status: Former Tobacco user Tobacco use type: Cigarette e-Cigarette/Vaping Use: Never Used Second Hand Smoke Exposure: No Substance Use Type: Marijuana service: No Current occupational status: employed Current occupational exposures/hazards: No Cognitive needs: No Hearing needs: No Vision needs: Yes Questionnaire Thrive Questionnaire Date Thrive assessed: 01/01/23 ROSA-7 AMB Questionnaire ROSA-7 Date ROSA - 7 assessed: 01/01/23 Source: Developed by Drs. Juan Antonoi Patton, Rosalinda Dumont, Kendrick Mercer and colleagues, with an educational maite from [employer]. Review of Systems Const All systems reviewed & are unremarkable except as noted in HPI and below Card Denies chest pain at rest, Denies chest pain with activity, Denies edema, Denies irregular heart rhythm, Denies claudication, Denies dyspnea, Denies dyspnea on exertion, Denies orthopnea, Denies paroxysmal nocturnal dyspnea and Denies slow heart rate Resp Denies cough, Denies dyspnea and Denies dyspnea on exertion GI Denies abdominal pain, Denies change in bowel habits, Denies excessive flatus, Denies nausea and Denies vomiting Denies urinary hesitancy, Denies urinary incontinence and Denies urinary urgency Musc Denies atrophy, Denies deformity and Denies limited range of motion Skin/Breast Denies bleeding lesions, Denies changing lesions and Denies rash Physical exam (Primary Care) Vital Signs: Last Vital Signs Temp 97.3 F 11/06/25 16:31 Pulse 75 06/16/25 16:31 Resp 18 06/16/25 16:31 BP 188/80 H 06/16/25 16:31 Pulse Ox 96 06/16/25 16:31 Oxygen Delivery Method Room Air 06/16/25 16:31 BMI result Body Mass Index 32.3 BMI Assessment/Plan discussion: High BMI High, discussed plan: lifestyle, weight reduction, dietary and physical activity Tobacco/Smoking Status: Tobacco use Status Tobacco use date assessed 06/16/25 06/16/25 16:32 Patient Tobacco Use Status Former Tobacco user 06/16/25 16:54 Tobacco use type Cigarette 06/16/25 16:54 e-Cigarette/Vaping Use Never Used 06/16/25 16:54 Thrive Assessment: Date of Thrive Assessment Date Thrive assessed 01/01/23 06/16/25 16:32 Resp Effort & Inspection: normal respiratory effort Auscultation: clear to auscultation bilaterally Cardio Jugular venous distension: no JVD Rate: regular rate Rhythm: regular rhythm Heart sounds: S1 normal heart sound present and S2 normal heart sound present Extrem General: Yes full ROM Office Procedures Flu Questionnaire Does the patient have a severe egg allergy?: No Does the patient have severe life threatening allergies?: No Does the patient have a fever or illness today?: No Has the patient ever had Guillain-Elbe Syndrome?: No Has the patient ever had any past reaction to a flu shot?: No Immunizations Fluarix [id number] (PF) 45 mcg (15 mcg x 3)/0.5 mL IM syringe Performing Provider: Marzena Mallory MD [facility] [facility] [facility] Administered by: Pretty Foley CMA on 06/16/25 17:04 Dose Route Admin Location Dispensed Lot Number Expiration Date [facility] [employer] 0.5 mL IM Left Deltoid 0.5 mL [id number] 02/07/26 [id number] [employer] VIS Given Date VIS Provided VIS Publication Date 06/16/25 Single Vaccine 24 Eligibility Eligibility Date Funding Source Not [facility] Eligible 06/16/25 Private Coding Level of Care Code Est Pt Level 3 (69378) Diagnoses Essential hypertension I10 Peyronie disease N48.6 Time Spent (min) 19 Assessment & Plan Assessment & Plan (1) Essential hypertension: Code(s): I10 - Essential (primary) hypertension Category: Medical (2) Peyronie disease: Code(s): N48.6 - Induration penis plastica Category: Medical Plan Plan 1. Hypertension The patient's blood pressure was noted to be slightly elevated. He is currently prescribed a combination therapy of olmesartan 40 mg, amlodipine 10 mg, and hydrochlorothiazide 25 mg. Plan includes ordering an electrocardiogram and labs to check cholesterol, glucose, renal function, liver function, and potassium. 2. Peyronie disease Refer to urology. Orders: Orders Lipid Panel Today E78.5 - Hyperlipidemia, unspecified Comprehensive [place]. Panel Fast Today I10 - Essential (primary) hypertension Influenza [id number] Immunization Today Z23 - Encounter for immunization Referrals Urology Referral N48.6 - Induration penis plastica
--- OUTSIDE RECORDS SUMMARY | 2025-06-16 18:39 | XMS_ITS | Encounter Summary ---
Author Organization [facility] ou and Home Health Address [address] [place] [address] Care Team Providers Care Civil Design Specialist Name Role Phone Claudia Mcknight DO Primary Care Provi errol Encounter Details Date Type Department Care Team (Late st Contact Info) Description 07/01/2022 Scanned Document [facility] Internal Medicine [facility] [address] [facility] [address] [place], [place] [phone] Manjit Bryant MD [address] [place] [address] Social History Tobacco Use Types Packs/Day Years Used Date Smoking Tobacco: Former Cigarettes Smokeless Tobacco: Never Comments:quit 16 yrs ago Alcohol Use Standard Drinks/Week Comments Not Currently 0 (1 standard drink = 0.6 oz pur e alcohol) occasionally Humiliation, Afraid, Rape, and Kick questionnair e Answer Date Recorded Fear of Current or Ex-Partner Patient declined 0 03/08/2019 Emotionally Abused Patient declined 03/08/2019 Physically Abused Patient declined 03/08/2019 Sexually Abused Patient declined 03/08/2019 Social Connection and Isolation Panel [NHANES] A nswer Date Recorded Frequency of Communication with Friends and Fami ly Patient declined 03/08/2019 Frequency of Social Gatherings with Friends and Family Patient declined 03/08/2019 Attends [employer] Services Patient declined 02/09 Active Member of Clubs or Organizations Patient declined 03/08/2019 Attends Club or Organization Meetings Patient de clined 03/08/2019 Marital Status Patient declined 03/08/2019 AUDIT-C Answer Date Recorded Frequency of Alcohol Consumption Never 09/27/2019 Average Number of Drinks Not on file 020 Frequency of Binge Drinking Not on file 09/11 PHQ-2 Answer Date Recorded PHQ-2 Total Score 0 03/22/2022 [facility] - Occupational Stress Questionnaire Answer Date Recorded Feeling of Stress Only a little 09/27/2019 Exercise Vital Sign Answer Date Recorde d Days of Exercise per Week 0 days 2019 Minutes of Exercise per Session 0 min 09/27/2019 Sex and Gender Information Value Date Recorded Sex Assigned at Male 10/06/2022 11:35 PM EST Legal Sex Male 8:45 AM EST Gender Identity Male 10/06/2022 11:35 PM EST Sexual Orientation Straight 10/06/2022 11 :35 PM EST documented as of this encounter Plan of Treatment Upcoming Encounters Date Type Department Care Team (Late st Contact Info) Description 07/12/2025 3:45 PM EST Follow Up [facility] Cardiology [facility] [address] [facility] [address] [place] [address] Srinath Stallings MD [address] [facility] [address] [place] [phone] 08/22/2025 3:45 PM EST Initial consult [facility] General Surgery [facility] [address] [place] [address] Kimberlee Ace MD [address] [place] [phone] 09/05/2025 9:20 AM EST Follow Up [facility] [address] [place], [place] [address] Dayana Franz MD [address] [place] [phone] 09/14/2025 12:45 PM EST Office Visit [facility] Urology [facility] [address] [place] [address] Capo Ellington MD [address] [place] [phone] 11/23/2025 4:00 PM EDT Follow Up [facility] Internal Medicine [facility] [address] [facility] [address] [place], [place] [address] Claudia Mcknight DO [address] [place] [address] [address] [place] [address] documented as of this encounter Visit Diagnoses Not on filedocumented in this encounter Additional Health Concerns Assessment Noted Time PHQ-9 Depression Total Score: 0 03/22/20 22 8:56 AM EDT documented as of this encounter Care Teams Civil Design Specialist Relationship Specialty Start Date End Date Claudia Mcknight DO [address] [place] [address] [address] [place] [phone] PCP - General Family Medicine 05/18/24 documented as of this encounter
--- OUTSIDE RECORDS SUMMARY | 2025-06-16 18:39 | XMS_ITS | Encounter Summary ---
Author Organization [facility] ou and Home Health Address [address] [place] [address] Care Team Providers Care Rn Cardiac Name Role Phone Claudia Mcknight DO Primary Care Provi errol Reason for Visit * Reason Comments Medication Refill Encounter Details Date Type Department Care Team (Late st Contact Info) Description 04/14/2022 Refill [facility] Internal Medicine [facility]. [address] [facility] [address] [place], [place] [phone] Manjit Bryant MD [address] [place] [address] [address] [place] [address] Medication Refill Social History Tobacco Use Types Packs/Day Years [...] Friends and Family Patient declined 03/08/2019 Attends [employer] Services Patient declined 02/09 Active Member of Clubs or Organizations Patient declined 03/08/2019 Attends Club or Organization Meetings Patient de clined 03/08/2019 Marital Status Patient declined 03/08/2019 AUDIT-C Answer Date Recorded Frequency of Alcohol Consumption Never 09/27/2019 Average Number of Drinks Not on file 020 Frequency of Binge Drinking Not on file 09/11 PHQ-2 Answer Date Recorded PHQ-2 Total Score 0 03/22/2022 [facility] [place] [facility] Occupat ional [facility] - Occupational Stress Questionnaire Answer Date Recorded [...] Orientation Straight 10/06/2022 11 :35 PM EST COVID-19 Exposure Response Date Recorded In the last 10 days, have yo u been in contact with someone who was confirmed or suspected to have Coronavirus/COVID-19? No / Unsure 03/22/2022 8:45 AM EDT documented as of this encounter Plan of Treatment Upcoming Encounters Date Type Department Care Team (Late st Contact Info) Description 07/12/2025 3:45 PM EST Follow Up [facility] Cardiology [facility] [address] [facility] [address] [place], [place] [address] Srinath Stallings MD [address] [facility] [address] [place] [phone] 08/22/2025 3:45 PM EST Initial consult [facility] General Surgery [facility] [address] [place], [place] [address] Kimberlee Ace MD [address] [place] [phone] 09/05/2025 9:20 AM EST Follow Up [facility] Sleep [facility] [address] [place] [address] Dayana Franz MD [address] [facility] [place] [address] 09/14/2025 12:45 PM EST Office Visit [facility] Urology [facility] [address] [facility] [address] Capo Ellington MD [address] [place] [address] 11/23/2025 4:00 PM EDT Follow Up [facility] Internal Medicine [facility] [address] [facility] [address] [place], [place] [address] Claudia Mcknight DO [address] [place] [phone] documented as of this encounter Visit Diagnoses Not on filedocumented in this encounter Additional Health Concerns Assessment Noted Time PHQ-9 Depression Total Score: 0 03/22/20 22 8:56 AM EDT documented as of this encounter Care Teams Rn Cardiac Relationship Specialty Start Date End Date Claudia Mcknight DO [address] [place] [address] [address] [place] [phone] PCP - General Family Medicine 05/18/24 documented as of this encounter
--- OUTSIDE RECORDS SUMMARY | 2025-06-16 18:39 | XMS_ITS | Encounter Summary ---
Author Organization [facility] ou and Home Health Address [address] [place] [address] Care Team Providers Care Medicaid Nurse Name Role Phone Claudia Mcknight DO Primary Care Provi errol Encounter Details Date Type Department Care Team (Late st Contact Info) Description 07/16/2024 Scanned Document [facility] Internal Medicine [facility] [address] [facility] [address] [place], [place] [address] Claudia Mcknight DO [address] [place] [phone] Social History Tobacco Use Types Packs/Day Years Used Date Smoking Tobacco: Never Smokeless Tobacco: Never Comments:quit 16 yrs ago Alcohol Use Standard Drinks/Week Comments Not Currently 0 (1 standard drink = 0.6 oz pur e alcohol) Humiliation, Afraid, Rape, and Kick questionnair e [...] Friends and Family Patient declined 03/08/2019 Attends [employer] Services Patient declined 02/09 Active Member of Clubs or Organizations Patient declined 03/08/2019 Attends Club or Organization Meetings Patient de clined 03/08/2019 Marital Status Patient declined 03/08/2019 AUDIT-C Answer Date Recorded Frequency of Alcohol Consumption Never 09/27/2019 Average Number of Drinks Not on file 020 Frequency of Binge Drinking Not on file 09/11 PHQ-2 Answer Date Recorded PHQ-2 Total Score 0 06/25/2024 [facility] Occupat ional [facility] - Occupational Stress Questionnaire Answer Date [...] Description 07/12/2025 3:45 PM EST Follow Up [facility] Cardiology [facility] [address] [facility] [address] [place] [address] Srinath Stallings MD [address] [facility] [address] [place] [phone] 08/22/2025 3:45 PM EST Initial consult [facility] General Surgery [facility] [address] [place] [address] Kimberlee Ace MD [address] [place] [phone] 09/05/2025 9:20 AM EST Follow Up [facility] Sleep [facility] [address] [place], [place] [address] Dayana Franz MD [address] [place] [address] 09/14/2025 12:45 PM EST Office Visit [facility] Urology [facility] [address] [place] [address] Capo Ellington MD [address] [place] [phone] 11/23/2025 4:00 PM EDT Follow Up [facility] Internal Medicine [facility] [address] [facility] [address] [place], [place] [address] Claudia Mcknight DO [address] [place] [address] [address] [place] [address] documented as of this encounter Visit Diagnoses Not on filedocumented in this encounter Additional Health Concerns Assessment Noted Time PHQ-9 Depression Total Score: 0 05/18/20 24 7:23 AM EDT documented as of this encounter Care Teams Medicaid Nurse Relationship Specialty Start Date End Date Claudia Mcknight DO [address] [place] [address] [address] [place] [phone] PCP - General Family Medicine 05/18/24 documented as of this encounter
--- OUTSIDE RECORDS SUMMARY | 2025-06-16 18:39 | XMS_ITS | Encounter Summary ---
Author Organization [facility] ou and Home Health Address [address] [place] [address] Care Team Providers Care Hris Administrator Name Role Phone Claudia Mcknight DO Primary Care Provi errol Reason for Visit * Reason Onset Date Comments Advice Only 07/21/2024 Encounter Details Date Type Department Care Team (Late st Contact Info) Description 07/21/2024 Telephone [facility] Cardiology [facility] [address] [facility] [address] [place], [place] [address] Srinath Stallings MD [address] [facility] [address] [place] [address] Advice Only Social History Tobacco Use Types Packs/Day Years Used Date Smoking Tobacco: Never Smokeless Tobacco: Never Comments:quit 16 yrs ago to [place], 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 Enjoys going to [employer], working around the house Alcohol Use Standard Drinks/Week Comments Not Currently [...] Friends and Family Patient declined 03/08/2019 Attends Bahai Services Patient declined 02/09 Active Member of Clubs or Organizations Patient declined 03/08/2019 Attends Club or Organization Meetings Patient de clined 03/08/2019 Marital Status Patient declined 03/08/2019 AUDIT-C Answer Date Recorded Frequency of Alcohol Consumption Never 09/27/2019 Average Number of Drinks Not on file 020 Frequency of Binge Drinking Not on file 09/11 PHQ-2 Answer Date Recorded PHQ-2 Total Score 0 06/25/2024 [facility] Occupat ional [facility] - Occupational Stress [...] PM EST documented as of this encounter Miscellaneous Notes * Telephone Encounter - Srinath Stallings MD - 07/21/2024 3:36 PM EST I called back and we spoke Electronically Signed by Srinath Stallings MD, July 21, 2024 Electronically Signed by Srinath Stallings MD, July 21, 2024 * Telephone Encounter - Meenu Huertas - 07/21/2024 2:56 PM EST Pt's stated she was speaking with Dr. Stallings and got disconnected, is requesting a call back from Dr. Stallings. documented in this encounter Plan of Treatment Upcoming Encounters Date Type Department Care Team (Late st Contact Info) Description 07/12/2025 3:45 PM EST Follow Up [facility] Cardiology [address] [place] [address] Srinath Stallings MD [address] [place] [address] [address] [place] [phone] 08/22/2025 3:45 PM EST Initial consult [facility] General Surgery [facility] [address] [place] [address], [place] [address] Kimberlee Ace MD [address] [place] [address] 09/05/2025 9:20 AM EST Follow Up [facility] Sleep [address] [address] Dayana Franz MD [address] [place] [phone] 09/14/2025 12:45 PM EST Office Visit [facility] Urology [address] [address] Capo Ellington MD [address] [place] [phone] 11/23/2025 4:00 PM EDT Follow Up [facility] Internal Medicine [facility]. [address] [place] [address] [address] [place], [place] [address] Claudia Mcknight DO [address] [place] [address] [address] [place] [address] documented as of this encounter Visit Diagnoses Not on filedocumented in this encounter Additional Health Concerns Assessment Noted Time PHQ-9 Depression Total Score: 0 05/18/20 24 7:23 AM EDT documented as of this encounter Care Teams Hris Administrator Relationship Specialty Start Date End Date Claudia Mcknight DO [address] [place] [address] [address] [place] [address] PCP - General Family Medicine 05/18/24 documented as of this encounter
--- OUTSIDE RECORDS SUMMARY | 2025-06-16 18:39 | XMS_ITS | Encounter Summary ---
Author Organization [facility] Address [address] [place] [address] Care Team Providers Care Colliery Clerk Name Role Phone Claudia Mcknight DO Primary Care Provi errol Reason for Visit * Reason Comments Med Change Request Encounter Details Date Type Department Care Team (Late st Contact Info) Description 04/09/2022 Refill [facility] Internal Medicine [facility]. 8 [facility] 203 [place], [place] [phone] Manjit Bryant MD [address] [place] [address] 203 [place] [address] Med Change Request Social History Tobacco Use Types Packs/Day Years [...] Friends and Family Patient declined 03/08/2019 Attends Pentecostal Services Patient declined 02/09 Active Member of Clubs or Organizations Patient declined 03/08/2019 Attends Club or Organization Meetings Patient de clined 03/08/2019 Marital Status Patient declined 03/08/2019 AUDIT-C Answer Date Recorded Frequency of Alcohol Consumption Never 09/27/2019 Average Number of Drinks Not on file 020 Frequency of Binge Drinking Not on file 09/11 PHQ-2 Answer Date Recorded PHQ-2 Total Score 0 03/22/2022 [facility] of Occupat ional Health - Occupational Stress [...] 3:45 PM EST Follow Up [facility] Cardiology [facility] 112 [facility] [address] [place], [place] [address] Srinath Stallings MD 112 [facility] [address] [place] [phone] 08/22/2025 3:45 PM EST Initial consult [facility] General Surgery [facility] [address] [place], [place] [address] Kimberlee Ace MD 111 [place] [phone] 09/05/2025 9:20 AM EST Follow Up NEM Sleep [facility] [address] [place] [address] Dayana Franz MD 1152 [place] [address] 09/14/2025 12:45 PM EST Office Visit [facility] Urology [facility] 1152 [place] [address] Capo Ellington MD 1152 [place] [address] 11/23/2025 4:00 PM EDT Follow Up [facility] Internal Medicine [facility] [address] [facility] [address] [place], [place] [address] Claudia Mcknight DO [address] [place] [phone] documented as of this encounter Visit Diagnoses Not on filedocumented in this encounter Additional Health Concerns Assessment Noted Time PHQ-9 Depression Total Score: 0 03/22/20 22 8:56 AM EDT documented as of this encounter Care Teams Colliery Clerk Relationship Specialty Start Date End Date Claudia Mcknight DO [address] [place] [address] Rd [address] [place] [phone] PCP - General Family Medicine 05/18/24 documented as of this encounter
--- OUTSIDE RECORDS SUMMARY | 2025-06-16 18:39 | XMS_ITS | Encounter Summary ---
Author Organization [facility] ou [facility] Home Health Address [address] [place] [address] Care Team Providers Care Tack Picker Name Role Phone Claudia Mcknight DO Primary Care Provi errol Encounter Details Date Type Department Care Team (Late st Contact Info) Description 09/02/2024 Scanned Document [facility] Podiatry [facility] [address] 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 Enjoys going to Voodoo, working around the house Alcohol Use Standard [...] Friends and Family Patient declined 03/08/2019 Attends Sabianism Services Patient declined 02/09 Active Member of Clubs or Organizations Patient declined 03/08/2019 Attends Club or Organization Meetings Patient de clined 03/08/2019 Marital Status Patient declined 03/08/2019 AUDIT-C Answer Date Recorded Frequency of Alcohol Consumption Never 09/27/2019 Average Number of Drinks Not on file 020 Frequency of Binge Drinking Not on file 09/11 PHQ-2 Answer Date Recorded PHQ-2 Total Score 0 09/06/2024 [facility] of Occupat ional Health - Occupational Stress [...] 3:45 PM EST Follow Up NEM Cardiology [facility] 112 [facility] [address] [place], [place] [address] Srinath Stallings MD 112 [facility] [address] [place] [phone] 08/22/2025 3:45 PM EST Initial consult NEM General Surgery [facility] [address] [place] [address] Kimberlee Ace MD 111 [place] [phone] 09/05/2025 9:20 AM EST Follow Up [facility] [address] [place] [address] Dayana Franz MD 1152 [place] [address] 09/14/2025 12:45 PM EST Office Visit [facility] 1152 [place] [address] Capo Ellington MD [address]2 [place] [phone] 11/23/2025 4:00 PM EDT Follow Up [facility] Internal Medicine [facility] [address] 888 [facility] [address] [place], [place] [address] Claudia Mcknight DO [address] [place] [address] documented as of this encounter Procedures Procedure Name Priority Date/Time Associated Diagnosis Comments PATHOLOGY REPORT (L) Routine 08/30/2024 10:00 AM EST documented in this encounter Results * Pathology report (L) (08/30/2024 10:00 AM EST) Blood us Janes Flor DPM PATHOLOGY/CYTOLOGY ORDERABL ES Final Result documented in this encounter Visit Diagnoses Not on filedocumented in this encounter Additional Health Concerns Assessment Noted Time PHQ-9 Depression Total Score: 0 05/18/20 7:23 AM EDT documented as of this encounter Care Teams Tack Picker Relationship Specialty Start Date End Date Claudia Mcknight DO [address] [place] [address] Rd [address] [place] [address] PCP - General Family Medicine 05/18/24 documented as of this encounter
--- OUTSIDE RECORDS SUMMARY | 2025-06-16 18:39 | XMS_ITS | Encounter Summary ---
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 Enjoys going to Restoration[employer], working around the house Alcohol Use Standard [...] Friends and Family Patient declined 03/08/2019 Attends Restorationism Services Patient declined 02/09 Active Member of Clubs or Organizations Patient declined 03/08/2019 Attends Club or Organization Meetings Patient de clined 03/08/2019 Marital Status Patient declined 03/08/2019 AUDIT-C Answer Date Recorded Frequency of Alcohol Consumption Never 09/27/2019 Average Number of Drinks Not on file 020 Frequency of Binge Drinking Not on file 09/11 PHQ-2 Answer Date Recorded PHQ-2 Total Score 0 09/06/2024 [facility] of Occupat ional Health - Occupational Stress [...] Description 07/12/2025 3:45 PM EST Follow Up [facility] Cardiology [facility] 112 [facility] [address] [place] [address] Srinath Stallings MD [address] [facility] [address] [place] [address] 08/22/2025 3:45 PM EST Initial consult [facility] General Surgery [facility] [address] [place] [address] Kimberlee Ace MD [address] [place] [phone] 09/05/2025 9:20 AM EST Follow Up [facility] [address] [place] [address] Dayana Franz MD [address] [place] [phone] 09/14/2025 12:45 PM EST Office Visit NEM Urology [address] [address] Capo Ellington MD 1152 [place] [address] 11/23/2025 4:00 PM EDT Follow Up [facility] Internal Medicine [facility] [address] 888 [facility] [address] [place], [place] [address] Claudia Mcknight DO [address] [place] [address] Rd [address] [place] [address] documented as of this encounter Procedures Procedure Name Priority Date/Time Associated Diagnosis Comments LAB SCAN Routine 09/30/2024 1:08 PM EST documented in this encounter Results * Lab Scan (09/30/2024 1:08 PM EST) us Provider External LAB BLOOD ORDERABLES Final Res ult documented in this encounter Visit Diagnoses Not on filedocumented in this encounter Additional Health Concerns Assessment Noted Time PHQ-9 Depression Total Score: 0 05/18/20 7:23 AM EDT documented as of this encounter Care Teams Production Scheduler Relationship Specialty Start Date End Date Claudia Mcknight DO [address] [place] [address] [address] [place] [address] PCP - General Family Medicine 05/18/24 documented as of this encounter
--- OUTSIDE RECORDS SUMMARY | 2025-06-16 18:39 | XMS_ITS | Encounter Summary ---
Author Organization [facility] ou and Home Health Address [address] [place] [address] Care Team Providers Care Special Delivery Clerk Name Role Phone Claudia Mcknight DO Primary Care Provi errol Reason for Visit * Reason Comments Medication Refill Encounter Details Date Type Department Care Team (Late st Contact Info) Description 10/08/2024 Refill [facility] Internal Medicine [facility] [address] 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 Enjoys going to Bahai, working around the house Alcohol Use Standard [...] Friends and Family Patient declined 03/08/2019 Attends Buddhist Services Patient declined 02/09 Active Member of Clubs or Organizations Patient declined 03/08/2019 Attends Club or Organization Meetings Patient de clined 03/08/2019 Marital Status Patient declined 03/08/2019 AUDIT-C Answer Date Recorded Frequency of Alcohol Consumption Never 09/27/2019 Average Number of Drinks Not on file 020 Frequency of Binge Drinking Not on file 09/11 PHQ-2 Answer Date Recorded PHQ-2 Total Score 0 09/06/2024 [facility] of Occupat ional Health - Occupational [...] 3:45 PM EST Follow Up NEM Cardiology [facility] 112 [facility] [address] [place] [address] Srinath Stallings MD 112 [facility] [address] [place] [phone] 08/22/2025 3:45 PM EST Initial consult [facility] General Surgery [facility] [address] [place] [address] Kimberlee Ace MD 111 [place] [address] 09/05/2025 9:20 AM EST Follow Up NEM Sleep [facility] [address] [place], [place] [address] Dayana Franz MD 1152 [place] [phone] 09/14/2025 12:45 PM EST Office Visit [facility] [address] [place] [address] Capo Ellington MD [address] [place] [phone] 11/23/2025 4:00 PM EDT Follow Up [facility] Internal Medicine [facility]. [address] [place] [address] [place] [address] Claudia Mcknight DO [address] [place] [address] [facility] 203 [place] [phone] documented as of this encounter Visit Diagnoses Diagnosis Bilateral chronic knee pain Pain in joint, lower leg documented in this encounter Additional Health Concerns Assessment Noted Time PHQ-9 Depression Total Score: 0 05/18/20 24 7:23 AM EDT documented as of this encounter Care Teams Special Delivery Clerk Relationship Specialty Start Date End Date Claudia Mcknight DO [address] [place] [address] 203 [place] [phone] PCP - General Family Medicine 05/18/24 documented as of this encounter
--- OUTSIDE RECORDS SUMMARY | 2025-06-16 18:39 | XMS_ITS | Encounter Summary ---
Author Organization [facility] Address [address] [place] [address] Care Team Providers Care Casting Machine Adjuster Name Role Phone Claudia Mcknight DO Primary Care Provi errol Encounter Details Date Type Department Care Team ([facility] st Contact Info) Description 10/12/2021 Scanned Document INTERFACE DEFAULT [address] [place] [address] System, Provider Not In Social History Tobacco Use Types Packs/Day Years [...] Friends and Family Patient declined 03/08/2019 Attends Mandaen Services Patient declined 02/09 Active Member of Clubs or Organizations Patient declined 03/08/2019 Attends Club or Organization Meetings Patient de clined 03/08/2019 Marital Status Patient declined 03/08/2019 AUDIT-C Answer Date Recorded Frequency of Alcohol Consumption Never 09/27/2019 Average Number of Drinks Not on file 020 Frequency of Binge Drinking Not on file 09/11 [facility] [place] of Occupat ional Health - Occupational Stress [...] Description 07/12/2025 3:45 PM EST Follow Up [facility] Cardiology [facility] 112 [facility] [address] [place] [address] Srinath Stallings MD 112 [facility] 400 [place] [phone] 08/22/2025 3:45 PM EST Initial consult [facility] General Surgery [facility] [address] [place], [place] [address] Kimberlee Ace MD 111 [place] [phone] 09/05/2025 9:20 AM EST Follow Up [facility] Sleep [facility] [address] [place] [address] Dayana Franz MD [address] [place] [phone] 09/14/2025 12:45 PM EST Office Visit NEM Urology [address] 7[address] Capo Ellington MD [address] [place] [phone] 11/23/2025 4:00 PM EDT Follow Up [facility] Internal Medicine [facility] Rd[address] [place] [address] Claudia Mcknight DO [address] [place] [phone] documented as of this encounter Procedures Procedure Name Priority Date/Time Associated Diagnosis Comments PATHOLOGY/CYTOLOGY SCAN 10/12/2021 12:00 AM EST HM COLONOSCOPY 10/12/2021 12:00 AM EST documented in this encounter Results * HM COLONOSCOPY (10/12/2021 12:00 AM EST) us Provider Not In System HEALTH MAINTENANCE Final Result * Pathology/Cytology Scan (10/12/2021 12:00 AM EST) us Provider Not In System PATHOLOGY/CYTOLOGY ORDERA BLES Final Result documented in this encounter Visit Diagnoses Not on filedocumented in this encounter Care Teams Casting Machine Adjuster Relationship Specialty Start Date End Date Claudia Mcknight DO [address] [place] [phone] PCP - General Family Medicine 05/18/24 documented as of this encounter
--- OUTSIDE RECORDS SUMMARY | 2025-06-16 18:39 | XMS_ITS | Encounter Summary ---
Author Organization [facility] ou and Home Health Address [address] [place] [address] Care Team Providers Care Rotor Casting Machine Operator Name Role Phone Claudia Mcknight DO Primary Care Provi errol Reason for Visit * Reason Onset Date Comments Medication Refill 08/18/2024 Encounter Details Date Type Department Care Team (Late st Contact Info) Description 08/18/2024 Refill [facility] Internal Medicine [facility] 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 Enjoys going to Yarsani, working around the house Alcohol Use Standard [...] Friends and Family Patient declined 03/08/2019 Attends Sabianist Services Patient declined 02/09 Active Member of Clubs or Organizations Patient declined 03/08/2019 Attends Club or Organization Meetings Patient de clined 03/08/2019 Marital Status Patient declined 03/08/2019 AUDIT-C Answer Date Recorded Frequency of Alcohol Consumption Never 09/27/2019 Average Number of Drinks Not on file 020 Frequency of Binge Drinking Not on file 09/11 PHQ-2 Answer Date Recorded PHQ-2 Total Score 0 06/25/2024 [facility] of Occupat ional Health - Occupational Stress [...] 3:45 PM EST Follow Up NEM Cardiology [facility] 112 [facility] [address] [place] [address] Srinath Stallings MD 112 [facility] [address] [place] [phone] 08/22/2025 3:45 PM EST Initial consult NEM General Surgery [facility] [address] [place] [address] Kimberlee Ace MD 111 [place] [address] 09/05/2025 9:20 AM EST Follow Up [facility] Sleep [facility] [address] [place], [place] [address] Dayana Franz MD [address]2 [place] [address] 09/14/2025 12:45 PM EST Office Visit [facility] [address] [place] [address] Capo Ellington MD [address]2 [place] [phone] 11/23/2025 4:00 PM EDT Follow Up [facility] Internal Medicine [facility] [address] 8 [facility] [address] [place], [place] [address] Claudia Mcknight DO [address] [place] [address] [address] [place] [phone] documented as of this encounter Visit Diagnoses Diagnosis Esophageal dysphagia Dysphagia, pharyngoesophageal phase Díaz's esophagus with dysplasia Díaz's esophagus Gastroesophageal reflux disease with esophagitis without hemorrhage documented in this encounter Additional Health Concerns Assessment Noted Time PHQ-9 Depression Total Score: 0 05/18/20 7:23 AM EDT documented as of this encounter Care Teams Rotor Casting Machine Operator Relationship Specialty Start Date End Date Claudia Mcknight DO [address] [place] [address] [address] [place] [phone] PCP - General Family Medicine 05/18/24 documented as of this encounter
--- OUTSIDE RECORDS SUMMARY | 2025-06-16 18:39 | XMS_ITS | Encounter Summary ---
Author Organization [facility] Address [address] [place] [address] Care Team Providers Care Pain Management Nurse Name Role Phone Claudia Mcknight DO Primary Care Provi errol Encounter Details Date Type Department Care Team (Late st Contact Info) Description 08/16/2024 Scanned Document [facility] Internal Medicine [facility] [address] 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 Enjoys going to [employer], working around the house Alcohol Use Standard [...] Friends and Family Patient declined 03/08/2019 Attends Scientologist Services Patient declined 02/09 Active Member of Clubs or Organizations Patient declined 03/08/2019 Attends Club or Organization Meetings Patient de clined 03/08/2019 Marital Status Patient declined 03/08/2019 AUDIT-C Answer Date Recorded Frequency of Alcohol Consumption Never 09/27/2019 Average Number of Drinks Not on file 020 Frequency of Binge Drinking Not on file 09/11 PHQ-2 Answer Date Recorded PHQ-2 Total Score 0 06/25/2024 [facility] of Occupat ional Health - [...] EST Follow Up [facility] Cardiology [facility] 112 [facility] [address] [place] [address] Srinath Stallings MD [address] [facility] [address] [place] [phone] 08/22/2025 3:45 PM EST Initial consult [facility] General Surgery [facility] [address] [place] [address] Kimberlee Ace MD [address] [place] [phone] 09/05/2025 9:20 AM EST Follow Up [facility] Sleep [facility] [address] [place] [address] Dayana Franz MD [address] [place] [phone] 09/14/2025 12:45 PM EST Office Visit [facility] Urology [address] [address] Capo Ellington MD [address]2 [place] [phone] 11/23/2025 4:00 PM EDT Follow Up [facility] Internal Medicine [facility] [address] [facility] [address] [place], [place] [address] Claudia Mcknight DO [address] [place] [address] [address] [place] [phone] documented as of this encounter Procedures Procedure Name Priority Date/Time Associated Diagnosis Comments LAB SCAN Routine 08/14/2024 2:38 PM EST documented in this encounter Results * Lab Scan (08/14/2024 2:38 PM EST) us Provider External LAB BLOOD ORDERABLES Final Res ult documented in this encounter Visit Diagnoses Not on filedocumented in this encounter Additional Health Concerns Assessment Noted Time PHQ-9 Depression Total Score: 0 05/18/20 7:23 AM EDT documented as of this encounter Care Teams Pain Management Nurse Relationship Specialty Start Date End Date Claudia Mcknight DO [address] [place] [address] [address] [place] [phone] PCP - General Family Medicine 05/18/24 documented as of this encounter
--- OUTSIDE RECORDS SUMMARY | 2025-06-16 18:39 | XMS_ITS | Encounter Summary ---
Author Organization [facility] Address [address] [place] [address] Care Team Providers Care School Transportation Supervisor Name Role Phone Claudia Mcknight DO Primary Care Provi errol Reason for Visit * Reason Onset Date Comments Triage 07/26/2024 Encounter Details Date Type Department Care Team (Late st Contact Info) Description 07/26/2024 Telephone [facility] Cardiology [facility] [address] [facility] [address] [place], [place] [id number] Srinath Stallings MD [address] [facility] [address] [place] [address] Triage Social History Tobacco Use Types Packs/Day Years Used Date Smoking Tobacco: Never Smokeless Tobacco: Never Comments:quit 16 yrs ago to [place], 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 Enjoys going to Orthodox, working around the house Alcohol Use Standard [...] Friends and Family Patient declined 03/08/2019 Attends Orthodox Services Patient declined 02/09 Active Member of Clubs or Organizations Patient declined 03/08/2019 Attends Club or Organization Meetings Patient de clined 03/08/2019 Marital Status Patient declined 03/08/2019 AUDIT-C Answer Date Recorded Frequency of Alcohol Consumption Never 09/27/2019 Average Number of Drinks Not on file 020 Frequency of Binge Drinking Not on file 09/11 PHQ-2 Answer Date Recorded PHQ-2 Total Score 0 06/25/2024 [facility] - [...] encounter Miscellaneous Notes * Telephone Encounter - Asya Hodge - 07/27/2024 1:18 PM EST Spoke to Graciela ansley to keep appt tomorrow and bring BP cuff with them * Telephone Encounter - Michelle Cortes APRN - 07/27/2024 11:17 AM EST No, continue present Rx. F/U tomorrow with BP cuff they use at home. * Telephone Encounter - Asya Hodge - 07/27/2024 11:11 AM EST Pt states she took her to the ED for elevated BP 190/100. She states they were there until 2am and they only gave him ibuprofen for his headache and told her to FU with our office. PatientsBP today is 166/94. He did take amlodipine 10mg today. He has an appt tomorrow in our office. Please advise if you would like to make any further medication changes today. * Telephone Encounter - Kelvin Lyles - 07/27/2024 10:53 AM EST PLS CALL REG PT BEING SEEN AT [facility] * Telephone Encounter - Sameer Nicole RN - 07/26/2024 4:59 PM EST Spoke to pt's , she is aware that he should be seen in the ER if he develops any dizziness, lightheadedness, blurred vision, headache * Telephone Encounter - Michelle Cortes APRN - 07/26/2024 4:44 PM EST He can take an extra Amlodipine now. * Telephone Encounter - Michelle Cortes APRN - 07/26/2024 4:30 PM EST That high of a number we send pts to ER That being said I am not confident that is correct as his BP was 160/[address] Stallings and he added medicine to his current meds. He has an appt 07/28 with [facility]. * Telephone Encounter - Sameer Nicole RN - 07/26/2024 4:18 PM EST Patient was checked at [facility] and his BP was 207/111 p 74. He is asymptomatic. What should he do? * Telephone Encounter - Sameer Nicole RN - 07/26/2024 1:00 PM EST Patient was seen her a few days ago and Amlodipine 5 mg was added due to high BP. Yesterday his BP was 174/114 in the AM and 172/149 in the evening. This morning it was 165/129. She said he feels fine. She will take him to a walk-in now to have his BP rechecked and call back * Telephone Encounter - Kelvin Lyles - 07/26/2024 12:02 PM EST PLS CALL REG PTS B/P 165/129 THIS MORNING documented in this encounter Plan of Treatment Upcoming Encounters Date Type Department Care Team (Late st Contact Info) Description 07/12/2025 3:45 PM EST Follow Up [facility] Cardiology [facility] 112 [facility] [address] [place] [address] Srinath Stallings MD 112 [facility] [address] [place] [phone] 08/22/2025 3:45 PM EST Initial consult [facility] General Surgery [facility] [address] [place] [address] Kimberlee Ace MD [address] [place] [phone] 09/05/2025 9:20 AM EST Follow Up [facility] Sleep [facility] [address] [place], [place] [address] Dayana Franz MD [address] [place] [phone] 09/14/2025 12:45 PM EST Office Visit [facility] [address] [place] [address] Capo Ellington MD [address] [place] [address] 11/23/2025 4:00 PM EDT Follow Up [facility] Internal Medicine [facility] [address] [facility] [address] [place], [place] [address] Claudia Mcknight DO [address] [place] [address] [address] [place] [phone] documented as of this encounter Visit Diagnoses Not on filedocumented in this encounter Additional Health Concerns Assessment Noted Time PHQ-9 Depression Total Score: 0 05/18/20 24 7:23 AM EDT documented as of this encounter Care Teams School Transportation Supervisor Relationship Specialty Start Date End Date Claudia Mcknight DO [address] [place] [address] [address] [place] [phone] PCP - General Family Medicine 05/18/24 documented as of this encounter
--- OUTSIDE RECORDS SUMMARY | 2025-06-16 18:39 | XMS_ITS | Encounter Summary ---
Author Organization [facility] Address [address] [place] [address] Care Team Providers Care Mule Rider Name Role Phone Claudia Mcknight DO Primary Care Provi errol Encounter Details Date Type Department Care Team (Late st Contact Info) Description 07/28/2024 Scanned Document [facility] Cardiology [facility] [address] [facility] [address] [place] [address] External, Provider Social History Tobacco Use Types Packs/Day Years Used Date Smoking Tobacco: Never Smokeless Tobacco: Never Comments:quit 16 yrs ago to [place]iela, 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 Enjoys going to Roman [employer], working around the house Alcohol Use Standard [...] Friends and Family Patient declined 03/08/2019 Attends Cheondoism Services Patient declined 02/09 Active Member of Clubs or Organizations Patient declined 03/08/2019 Attends Club or Organization Meetings Patient de clined 03/08/2019 Marital Status Patient declined 03/08/2019 AUDIT-C Answer Date Recorded Frequency of Alcohol Consumption Never 09/27/2019 Average Number of Drinks Not on file 020 Frequency of Binge Drinking Not on file 09/11 PHQ-2 Answer Date Recorded PHQ-2 Total Score 0 06/25/2024 [facility] Occupat ional Health - [...] 07/12/2025 3:45 PM EST Follow Up [facility] Cardiology [facility] [address] [facility] [address] [place] [address] Srinath Stallings MD [address] [facility] [address] [place] [address] 08/22/2025 3:45 PM EST Initial consult [facility] General Surgery [facility] [address] [place] [address] Kimberlee Ace MD [address] [place] [phone] 09/05/2025 9:20 AM EST Follow Up [facility] [address] [place] [address] Dayana Franz MD [address] [place] [phone] 09/14/2025 12:45 PM EST Office Visit [facility] Urology [address] [address] Capo Ellington MD [address] [place] [address] 11/23/2025 4:00 PM EDT Follow Up [facility] Internal Medicine [facility] [address] [facility] [address] [place], [place] [address] Claudia Mcknight DO [address] [place] [address] [address] [place] [address] documented as of this encounter Procedures Procedure Name Priority Date/Time Associated Diagnosis Comments LAB SCAN Routine 07/26/2024 4:20 PM EST documented in this encounter Results * Lab Scan (07/26/2024 4:20 PM EST) us Provider External LAB BLOOD ORDERABLES Final Res ult documented in this encounter Visit Diagnoses Not on filedocumented in this encounter Additional Health Concerns Assessment Noted Time PHQ-9 Depression Total Score: 0 05/18/20 7:23 AM EDT documented as of this encounter Care Teams Mule Rider Relationship Specialty Start Date End Date Claudia Mcknight DO [address] [place] [address] [address] [place] [address] PCP - General Family Medicine 05/18/24 documented as of this encounter
--- OUTSIDE RECORDS SUMMARY | 2025-06-16 18:39 | XMS_ITS | Encounter Summary ---
Author Organization [facility] Address [address] [place] [address] Care Team Providers Care Device Test Engineer Name Role Phone Claudia Mcknight DO Primary Care Provi errol Encounter Details Date Type Department Care Team (Latest Contact Info) Description 07/28/2024 Transcribed Orders [facility] [address] Draw Station [address] 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 Enjoys going to Jain, working around the house Alcohol Use Standard [...] Friends and Family Patient declined 03/08/2019 Attends Roman Catholic Services Patient declined 02/09 Active Member of Clubs or Organizations Patient declined 03/08/2019 Attends Club or Organization Meetings Patient de clined 03/08/2019 Marital Status Patient declined 03/08/2019 AUDIT-C Answer Date Recorded Frequency of Alcohol Consumption Never 09/27/2019 Average Number of Drinks Not on file 020 Frequency of Binge Drinking Not on file 09/11 PHQ-2 Answer Date Recorded PHQ-2 Total Score 0 06/25/2024 [facility] of Occupat ional Health - Occupational [...] 3:45 PM EST Follow Up [facility] Cardiology [facility] [address] [facility] [address] [place], [place] [address] Srinath Stallings MD [address] [facility] [address] [place] [phone] 08/22/2025 3:45 PM EST Initial consult [facility] General Surgery [facility] [address] [place] [address] Kimberlee Ace MD [address] [place] [address] 09/05/2025 9:20 AM EST Follow Up [facility] [address] [place], [place] [address] Dayana Franz MD [address] [place] [address] 09/14/2025 12:45 PM EST Office Visit [facility] Urology [facility] [address] [place] [address] Capo Ellington MD [address] [place] [phone] 11/23/2025 4:00 PM EDT Follow Up [facility] Internal Medicine [facility] [address] [place], [place] [address] Claudia Mcknight, DO [address] [place] [phone] documented as of this encounter Procedures Procedure Name Priority Date/Time Associated Diagnosis Comments PTH, INTACT WITHOUT CALCIUM Routine 07/28/2024 4:47 PM EST Hypopotassemia CORTISOL Routine 07/28/2024 4:47 PM EST Hypopotassemia documented in this encounter Results * PTH, intact without calcium (07/28/2024 4:47 PM EST) Parathyroid Hormone, Intact 46.4 15.0 - 65.0 pg/mL 07/28/2024 6:30 PM EST [facility] Blood Venipuncture / Unknown 07/28/2024 4:47 PM EST 07/28/2024 4:47 PM EST us Srinath Stallings MD LAB BLOOD ORDERABLES [place] [address], [facility] [phone] * Cortisol (07/28/2024 4:47 PM EST) Cortisol 7.7 See Comment ug/dL 07/28/2024 7:58 PM EST [facility] Comment: Cortisol AM: 6.0 - 18.4 ug/dL Cortisol PM: 2.6 - 10.5 ug/dL Savanna Daniels, Shelli J, Hannah Alvarez et al. Multicenter performance evaluation of a second generation cortisol assay. Clin Chem Lab Med. 2017 December 09;55(6):826-835. PMID: [id number]. Blood Venipuncture / Unknown 07/28/2024 4:47 PM EST 07/28/2024 4:47 PM EST us Srinath Stallings MD LAB BLOOD ORDERABLES Final Re sult [address] [phone] documented in this encounter Visit Diagnoses Diagnosis Hypopotassemia- Primary Hyperlipemia Other and unspecified hyperlipidemia Obstructive sleep apnea (adult) (pediatric) Essential hypertension, malignant documented in this encounter Additional Health Concerns Assessment Noted Time PHQ-9 Depression Total Score: 0 05/18/20 24 7:23 AM EDT documented as of this encounter Care Teams Device Test Engineer Relationship Specialty Start Date End Date Claudia Mcknight DO [address] [address] PCP - General Family Medicine 05/18/24 documented as of this encounter
--- OUTSIDE RECORDS SUMMARY | 2025-06-16 18:40 | XMS_ITS | Encounter Summary ---
Author Organization [facility] Address [address] [place] [address] Care Team Providers Care Drapery Supervisor Name Role Phone Claudia Mcknight DO Primary Care Provi errol Reason for Visit * Reason Comments Medication Refill Encounter Details Date Type Department Care Team (Late st Contact Info) Description 11/08/2023 Refill [facility] Internal Medicine [facility]. [address] [facility] [address] [place], [place] [phone] Manjit Bryant MD [address] [place] [address] [address] [place] [address] Medication Refill Social History Tobacco [...] Friends and Family Patient declined 03/08/2019 Attends Mormonism Services Patient declined 02/09 Active Member of Clubs or Organizations Patient declined 03/08/2019 Attends Club or Organization Meetings Patient de clined 03/08/2019 Marital Status Patient declined 03/08/2019 AUDIT-C Answer Date Recorded Frequency of Alcohol Consumption Never 09/27/2019 Average Number of Drinks Not on file 020 Frequency of Binge Drinking Not on file 09/11 PHQ-2 Answer Date Recorded PHQ-2 Total Score 0 05/16/2023 [facility] of Occupat ional Health - Occupational [...] Description 07/12/2025 3:45 PM EST Follow Up [facility] Cardiology [facility] [address] [facility] [address] [place], [place] [address] Srinath Stallings MD 112 [facility] [address] [place] [phone] 08/22/2025 3:45 PM EST Initial consult [facility] General Surgery [facility] [address] [place], [place] [address] Kimberlee Ace MD [address] [place] [phone] 09/05/2025 9:20 AM EST Follow Up [facility] [address] [place], [place] [address] Dayana Franz MD [address] [place] [phone] 09/14/2025 12:45 PM EST Office Visit [facility] Urology [facility] [address] [place] [address] Capo Ellington MD [address] [place] [address] 11/23/2025 4:00 PM EDT Follow Up [facility] Internal Medicine [facility] [address] [facility] [address] [place], [place] [address] Claudia Mcknight DO [address] [place] [address] [address] [place] [address] documented as of this encounter Visit Diagnoses Not on filedocumented in this encounter Additional Health Concerns Assessment Noted Time PHQ-9 Depression Total Score: 0 05/16/20 23 2:48 PM EDT documented as of this encounter Care Teams Drapery Supervisor Relationship Specialty Start Date End Date Claudia Mcknight DO [address] [place] [address] [address] [place] [address] PCP - General Family Medicine 05/18/24 documented as of this encounter
--- OUTSIDE RECORDS SUMMARY | 2025-06-16 18:40 | XMS_ITS | Encounter Summary ---
Author Organization [facility] Address [address] [place] [address] Care Team Providers Care Director Of Exhibit Development Name Role Phone Claudia Mcknight DO Primary Care Provi errol Encounter Details Date Type Department Care Team (Late st Contact Info) Description 12/23/2024 Abstract [facility] Sleep [facility] [address] [place], [place] [phone] Dayana Franz MD [address] [place] [address] Social History Tobacco Use Types Packs/Day Years Used Date Smoking Tobacco: Never Smokeless Tobacco: Never Comments:quit 16 yrs ago to [place]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 [place] [address] Kimberlee Ace MD [address] [place] [phone] 09/05/2025 9:20 AM EST Follow Up [facility] [address] [place] [address] Dayana Franz MD [address] [place] [address] 09/14/2025 12:45 PM EST Office Visit [facility] Urology [facility] [address] [place] [address] Capo Ellington MD [address] [place] [phone] 11/23/2025 4:00 PM EDT Follow Up [facility] Internal Medicine [facility] [address] [facility] [address] [place], [place] [address] Claudia Mcknight DO [address] [place] [address] [address] [place] [address] documented as of this encounter Visit Diagnoses Not on filedocumented in this encounter Additional Health Concerns Assessment Noted Time PHQ-9 Depression Total Score: 0 05/18/20 7:23 AM EDT documented as of this encounter Care Teams Director Of Exhibit Development Relationship Specialty Start Date End Date Claudia Mcknight DO [address] [place] [address] [address] [place] [phone] PCP - General Family Medicine 05/18/24 documented as of this encounter
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
--- OUTSIDE RECORDS SUMMARY | 2025-06-16 18:42 | XMS_ITS | Encounter Summary ---
Author Organization [facility] Address [address] [place] [address] Care Team Providers Care Preassembler And Inspector Name Role Phone Ankit Edge Primary Care Provider [phone] Yasir Winter MD Unavailable [phone] Manjit Bryant MD Primary Care Provider Unav ailable Antonio-Pospisil, Claudia DO Unavailable [phone] Antonio-Pospisil, Claudia DO Primary Care Provi errol Encounter Details Date Type Department Care Team (Late st Contact Info) Description 10/12/2021 Scanned Document [facility] [address] [place] [address] Yasir Winter MD [facility] [address] [place] [address] Social History Tobacco Use Types Packs/Day Years Used Date Smoking Tobacco: Never Smokeless Tobacco: Never Alcohol Use Standard Drinks/Week Comments Never 0 (1 standard drink = 0.6 oz pur e alcohol) Sex and Gender Information Value Date Recorded Sex Assigned at Male 09/14/2023 2:11 PM EST Legal Sex Male 7:06 PM EST Gender Identity Male 09/14/2023 2:11 PM EST Sexual Orientation Heterosexual (straight) 09/14 2:11 PM EST COVID-19 Exposure Response Date Recorded In the last month, have you been in contact with someone who was confirmed or suspected to have Coronavirus / COVID-19? No / Unsure 10/12/2021 2:40 PM EST documented as of this encounter Plan of Treatment Not on file documented as of this encounter Visit Diagnoses Not on filedocumented in this encounter Care Teams Preassembler And Inspector Relationship Specialty Start Date End Date Ankit Edge PA [address] [place] [address] PCP - General 01/22/21 06/30/22 Manjit Bryant MD [facility] Technology [facility] [address] [address] PCP - General Internal Medicine 07/01/22 06/02/24 Claudia Otto DO [address] [facility] [address] [place] [address] PCP - General Family Medicine 06/15/24 Yasir Winter MD [facility] [address] [address] Gastroenterology 01/22/21 Claudia Otto DO [address] [facility] [address] [place] [address] Family Medicine 05/21/24 documented as of this encounter
--- OUTSIDE RECORDS SUMMARY | 2025-06-16 18:42 | XMS_ITS | Encounter Summary ---
Author Organization [facility] Address [address] [place] [address] Care Team Providers Care Account Relationship Manager Name Role Phone Ankit Edge Primary Care Provider [phone] Yasir Winter MD Unavailable [phone] Manjit Bryant MD Primary Care Provider Unav ailable Antonio-Pospisil, Claudia DO Unavailable [phone] Antonio-Pospisil, Claudia DO Primary Care Provi errol Encounter Details Date Type Department Care Team (Late st Contact Info) Description 10/02/2021 Scanned Document [facility] [place] [address] [place] [address] Yasir Winter MD [address] [place], [place] [id number] Social History Tobacco Use Types Packs/Day Years [...] have Coronavirus / COVID-19? No / Unsure 10/01/2021 4:07 PM EST documented as of this encounter Plan of Treatment Not on file documented as of this encounter Visit Diagnoses Not on filedocumented in this encounter Care Teams Account Relationship Manager Relationship Specialty Start Date End Date Ankit Edge PA [address] [place] [address] PCP - General 01/22/21 06/30/22 Manjit Bryant MD [facility] [address] [address] PCP - General Internal Medicine 07/01/22 06/02/24 Claudia Otto DO [address] [place] [address] PCP - General Family Medicine 06/15/24 Yasir Winter MD [facility] Technology [facility] [address] [address] Gastroenterology 01/22/21 Claudia Otto DO [address] [place] [address] Family Medicine 05/21/24 documented as of this encounter
--- OUTSIDE RECORDS SUMMARY | 2025-06-16 18:42 | XMS_ITS | Encounter Summary ---
Author Organization [facility] Address [address] [place] [address] Care Team Providers Care Infection Prevention Practitioner Name Role Phone Ankit Edge Primary Care Provider [phone] Yasir Winter MD Unavailable [phone] Manjit Bryant MD Primary Care Provider Unav ailable Antonio-Pospisil, Claudia DO Unavailable [phone] Antonio-Pospisil, Claudia DO Primary Care Provi errol Encounter Details Date Type Department Care Team (Late st Contact Info) Description 10/12/2021 Scanned Document [facility] [address] [place] [address] Yasir Winter MD [facility] [address] [place] [address] Social History Tobacco Use Types [...] on filedocumented in this encounter Care Teams Infection Prevention Practitioner Relationship Specialty Start Date End Date Ankit Edge PA [address] [place] [address] PCP - General 01/22/21 06/30/22 Manjit Bryant MD [facility] Technology [facility] [address] [address] PCP - General Internal Medicine 07/01/22 06/02/24 Claudia Otto DO [address] [facility] [address] [place] [address] PCP - General Family Medicine 06/15/24 Yasir Winter MD [facility] [employer] [facility] [address] [address] Gastroenterology 01/22/21 Claudia Otto DO [address] [facility] [address] [place] [address] Family Medicine 05/21/24 documented as of this encounter
--- OUTSIDE RECORDS SUMMARY | 2025-06-16 18:42 | XMS_ITS | Encounter Summary ---
Author Organization [facility] Address [address] [place] [address] Care Team Providers Care Vacuum Drier Tender Name Role Phone Ankit Edge Primary Care Provider [phone] Yasir Winter MD Unavailable [phone] Manjit Bryant MD Primary Care Provider Unav ailable Antonio-Pospisil, Claudia DO Unavailable [phone] Antonio-Pospisil, Claudia DO Primary Care Provi errol Encounter Details Date Type Department Care Team (Late st Contact Info) Description 06/28/2021 Scanned Document [facility] [place] [address] [place] [address] Yasir Winter MD [address] [place] [address] Social History Tobacco Use Types [...] Orientation Heterosexual (straight) 09/14 2:11 PM EST documented as of this encounter Plan of Treatment Not on file documented as of this encounter Visit Diagnoses Not on filedocumented in this encounter Care Teams Vacuum Drier Tender Relationship Specialty Start Date End Date Ankit Edge PA [address] [place] [address] PCP - General 01/22/21 06/30/22 Manjit Bryant MD [facility] [address] [address] PCP - General Internal Medicine 07/01/22 06/02/24 Claudia Otto DO [address] [facility] [address] [place] [address] PCP - General Family Medicine 06/15/24 Yasir Winter MD [facility] Technology [employer] [address] [place] [address] Gastroenterology 01/22/21 Claudia Otto DO [address] [facility] [address] [place] [address] Family Medicine 05/21/24 documented as of this encounter
--- OUTSIDE RECORDS SUMMARY | 2025-06-16 18:42 | XMS_ITS | Encounter Summary ---
Author Organization [facility] Address [address] [place] [address] Care Team Providers Care Asphalt Roller Person Name Role Phone Ankit Edge Primary Care Provider [phone] Yasir Winter MD Unavailable [phone] Manjit Bryant MD Primary Care Provider Unav ailable Antonio-Pospisil Claudia Unavailable [phone] Antonio-Pospisil, Claudia DO Primary Care Provi errol Encounter Details Date Type Department Care Team (Late st Contact Info) Description 10/12/2021 Scanned Document [facility] [address] [place] [address] Gastroenterology, Scan Social History Tobacco Use Types Packs/Day Years [...] on filedocumented in this encounter Care Teams Asphalt Roller Person Relationship Specialty Start Date End Date Ankit Edge PA [address] [place] [address] PCP - General 01/22/21 06/30/22 Manjit Bryant MD [facility] [address] [place] [address] PCP - General Internal Medicine 07/01/22 06/02/24 Claudia Otto DO [address] [facility] [address] [place] [address] PCP - General Family Medicine 06/15/24 Yasir Winter MD [facility] Technology [employer] [address] [place] [address] Gastroenterology 01/22/21 Claudia Otto DO [address] [facility] [address] [place] [address] Family Medicine 05/21/24 documented as of this encounter
--- OUTSIDE RECORDS SUMMARY | 2025-06-16 18:42 | XMS_ITS | Encounter Summary ---
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 Enjoys going to [employer], working around the house Alcohol Use Standard [...] Friends and Family Patient declined 03/08/2019 Attends Confucianist Services Patient declined 02/09 Active Member of Clubs or Organizations Patient declined 03/08/2019 Attends Club or Organization Meetings Patient de clined 03/08/2019 Marital Status Patient declined 03/08/2019 AUDIT-C Answer Date Recorded Frequency of Alcohol Consumption Never 09/27/2019 Average Number of Drinks Not on file 020 Frequency of Binge Drinking Not on file 09/11 PHQ-2 Answer Date Recorded PHQ-2 Total Score 0 09/06/2024 [facility] ional [facility] - Occupational [...] 07/12/2025 3:45 PM EST Follow Up [facility] Cardiology [facility] [address] [facility] [address] [place] [address] Srinath Stallings MD [address] [place] [address] 08/22/2025 3:45 PM EST Initial consult [facility] General Surgery [facility] [address] [place] [address] Kimbrelee Ace MD [address] [place] [phone] 09/05/2025 9:20 AM EST Follow Up [facility] [address] [place] [address] Dayana Franz MD [address] [place] [phone] 09/14/2025 12:45 PM EST Office Visit [facility] Urology [address] [address] Capo Ellington MD [address] [place] [address] 11/23/2025 4:00 PM EDT Follow Up [facility] Internal Medicine [facility] [address] [facility] [address] [place], [place] [address] Claudia Mcknight DO [address] [place] [address] [address] [place] [address] documented as of this encounter Procedures Procedure Name Priority Date/Time Associated Diagnosis Comments LAB SCAN Routine 09/29/2024 8:46 AM EST documented in this encounter Results * Lab Scan (09/29/2024 8:46 AM EST) us Provider External LAB BLOOD ORDERABLES Final Res ult documented in this encounter Visit Diagnoses Not on filedocumented in this encounter Additional Health Concerns Assessment Noted Time PHQ-9 Depression Total Score: 0 05/18/20 7:23 AM EDT documented as of this encounter Care Teams Breakfast Manager Relationship Specialty Start Date End Date Claudia Mcknight DO [address] [place] [address] [address] [place] [address] PCP - General Family Medicine 05/18/24 documented as of this encounter
--- OUTSIDE RECORDS SUMMARY | 2025-06-16 18:43 | XMS_ITS | Encounter Summary ---
Author Organization [facility] ou and Home Health Address [address] [place] [address] Care Team Providers Care Lithograph Press Operator Tinware Name Role Phone Claudia Mcknight DO Primary Care Provi errol Encounter Details Date Type Department Care Team (Late st Contact Info) Description 06/03/2024 Scanned Document [facility] Internal Medicine [facility] [address] [facility] [address] [place], [place] [address] Claudia Mcknight DO [address] [place] [phone] Social History Tobacco Use Types Packs/Day Years [...] Friends and Family Patient declined 03/08/2019 Attends Amish Services Patient declined 02/09 Active Member of Clubs or Organizations Patient declined 03/08/2019 Attends Club or Organization Meetings Patient de clined 03/08/2019 Marital Status Patient declined 03/08/2019 AUDIT-C Answer Date Recorded Frequency of Alcohol Consumption Never 09/27/2019 Average Number of Drinks Not on file 020 Frequency of Binge Drinking Not on file 09/11 PHQ-2 Answer Date Recorded PHQ-2 Total Score 0 05/18/2024 [facility] of Occupat ional [facility] - Occupational Stress Questionnaire Answer Date [...] Description 07/12/2025 3:45 PM EST Follow Up [facility] Cardiology [facility] [address] [facility] [address] [place] [address] Srinath Stallings MD [address] [facility] [address] [place] [phone] 08/22/2025 3:45 PM EST Initial consult [facility] General Surgery [facility] [address] [place] [address] Kimberlee Ace MD [address] [place] [phone] 09/05/2025 9:20 AM EST Follow Up [facility] Sleep [facility] [address] [place], [place] [address] Dayana Franz MD [address] [place] [address] 09/14/2025 12:45 PM EST Office Visit [facility] U[facility] [address] [place] [address] Capo Ellington MD [address] [place] [phone] 11/23/2025 4:00 PM EDT Follow Up [facility] Internal Medicine [facility] [address] [facility] [address] [place], [place] [address] Claudia Mcknight DO [address] [place] [address] [address] [place] [address] documented as of this encounter Visit Diagnoses Not on filedocumented in this encounter Additional Health Concerns Assessment Noted Time PHQ-9 Depression Total Score: 0 05/18/20 24 7:23 AM EDT documented as of this encounter Care Teams Lithograph Press Operator Tinware Relationship Specialty Start Date End Date Claudia Mcknight DO [address] [place] [address] [address] [place] [phone] PCP - General Family Medicine 05/18/24 documented as of this encounter
--- OUTSIDE RECORDS SUMMARY | 2025-06-16 18:43 | XMS_ITS | Encounter Summary ---
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 Enjoys going to Christianity, working around the house Alcohol Use Standard [...] Friends and Family Patient declined 03/08/2019 Attends Restorationist Services Patient declined 02/09 Active Member of Clubs or Organizations Patient declined 03/08/2019 Attends Club or Organization Meetings Patient de clined 03/08/2019 Marital Status Patient declined 03/08/2019 AUDIT-C Answer Date Recorded Frequency of Alcohol Consumption Never 09/27/2019 Average Number of Drinks Not on file 020 Frequency of Binge Drinking Not on file 09/11 PHQ-2 Answer Date Recorded PHQ-2 Total Score 0 09/06/2024 [facility] of Occupat ional Health - Occupational Stress [...] Description 07/12/2025 3:45 PM EST Follow Up [facility] Cardiology [facility] [address] [facility] [address] [place] [address] Srinath Stallings MD [address] [facility] [address] [place] [phone] 08/22/2025 3:45 PM EST Initial consult [facility] General Surgery [facility] [address] [place] [address] Kimberlee Ace MD [address] [place] [phone] 09/05/2025 9:20 AM EST Follow Up [facility] Cutoff [facility] [place], [place] [address] Dayana Franz MD [address] [place] [phone] 09/14/2025 12:45 PM EST Office Visit [facility] Urology [place] [address] [place] [address] Capo Ellington MD [address] [place] [phone] 11/23/2025 4:00 PM EDT Follow Up [facility] Internal Medicine [facility] [address] [facility] [address] [place], [place] [address] Claudia Mcknight DO [address] [place] [address] [address] [place] [phone] documented as of this encounter Visit Diagnoses Not on filedocumented in this encounter Additional Health Concerns Assessment Noted Time PHQ-9 Depression Total Score: 0 05/18/20 24 7:23 AM EDT documented as of this encounter Care Teams Maxillofacial Prosthetics Dentist Relationship Specialty Start Date End Date Claudia Mcknight DO [address] [place] [address] [address] [place] [phone] PCP - General Family Medicine 05/18/24 documented as of this encounter
--- OUTSIDE RECORDS SUMMARY | 2025-06-16 18:43 | XMS_ITS | Encounter Summary ---
Author Organization [facility] ou and Home Health Address [address] [place] [address] Care Team Providers Care Development Vice President Name Role Phone Claudia Mcknight DO Primary Care Provi errol Encounter Details Date Type Department Care Team (Late st Contact Info) Description 06/16/2024 Scanned Document [facility] Internal Medicine [facility] [address] [facility] [address] [place], [place] [address] Claudia Mcknight DO [address] [place] [phone] Social History Tobacco Use Types Packs/Day Years [...] Friends and Family Patient declined 03/08/2019 Attends Confucianism Services Patient declined 02/09 Active Member of Clubs or Organizations Patient declined 03/08/2019 Attends Club or Organization Meetings Patient de clined 03/08/2019 Marital Status Patient declined 03/08/2019 AUDIT-C Answer Date Recorded Frequency of Alcohol Consumption Never 09/27/2019 Average Number of Drinks Not on file 020 Frequency of Binge Drinking Not on file 09/11 PHQ-2 Answer Date Recorded PHQ-2 Total Score 0 05/18/2024 [facility] of Occupat ional [facility] - Occupational Stress Questionnaire Answer Date Recorded [...] EST Follow Up [facility] Cardiology [facility] [address] [facility] [address] [place] [address] Srinath Stallings MD [address] [facility] [address] [place] [phone] 08/22/2025 3:45 PM EST Initial consult [facility] General Surgery [facility] [address] [place] [address] Kimberlee Ace MD [address] [place] [phone] 09/05/2025 9:20 AM EST Follow Up [facility] Sleep [facility] [address] [place], [place] [address] Dayana Franz MD [address] [place] [address] 09/14/2025 12:45 PM EST Office Visit [facility] [address] [place] [address] Capo Ellington MD [address] [place] [phone] 11/23/2025 4:00 PM EDT Follow Up [facility] Internal Medicine [facility] [address] [facility] [address] [place], [place] [address] Claudia Mcknight DO [address] [place] [address] documented as of this encounter Procedures Procedure Name Priority Date/Time Associated Diagnosis Comments PA EDG US EXAM SURGICAL ALTER STOM DUODENUM/JEJUNUM Routine 06/15/2024 1:46 PM EST documented in this encounter Results * PA EDG US EXAM SURGICAL ALTER STOM DUODENUM/JEJUNUM (06/15/2024 1:46 PM EST) us Claudia Mcknight DO PA [employer] Final Result documented in this encounter Visit Diagnoses Not on filedocumented in this encounter Additional Health Concerns Assessment Noted Time PHQ-9 Depression Total Score: 0 05/18/20 7:23 AM EDT documented as of this encounter Care Teams Development Vice President Relationship Specialty Start Date End Date Claudia Mcknight DO [address] [place] [address] [address] [place] [phone] PCP - General Family Medicine 05/18/24 documented as of this encounter
--- OUTSIDE RECORDS SUMMARY | 2025-06-16 18:43 | XMS_ITS | Encounter Summary ---
Author Organization [facility] and [facility] Address [address] [place] [address] Care Team Providers Care Feather Renovator Name Role Phone Claudia Mcknight DO Primary Care Provi errol Encounter Details Date Type Department Care Team ([facility] st Contact Info) Description 03/22/2025 Scanned Document INTERFACE DEFAULT [address] [place] [address] [phone] System, Provider Not In Social History Tobacco Use Types Packs/Day Years Used Date Smoking Tobacco: Never Smokeless Tobacco: Never Comments:quit 16 yrs ago to [place]iela, 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 Enjoys going to Religious, working around the house Alcohol Use Standard [...] Friends and Family Patient declined 03/08/2019 Attends Taoist Services Patient declined 02/09 Active Member of Clubs or Organizations Patient declined 03/08/2019 Attends Club or Organization Meetings Patient de clined 03/08/2019 Marital Status Patient declined 03/08/2019 AUDIT-C Answer Date Recorded Frequency of Alcohol Consumption Never 09/27/2019 Average Number of Drinks Not on file 020 Frequency of Binge Drinking Not on file 09/11 PHQ-2 Answer Date Recorded PHQ-2 Total Score 0 09/06/2024 [facility] [place] of Occupat ional Health - Occupational Stress [...] Description 07/12/2025 3:45 PM EST Follow Up [facility] Cardiology [facility] [address] [facility] [address] [place] [address] Srinath Stallings MD [address] [place] [phone] 08/22/2025 3:45 PM EST Initial consult [facility] General Surgery [facility] [address] [place] [address] Kimberlee Ace MD [address] [place] [phone] 09/05/2025 9:20 AM EST Follow Up [facility] [place], [place] [address] Dayana Franz MD [address] [place] [phone] 09/14/2025 12:45 PM EST Office Visit [facility] [place] [place] [address] Capo Ellington MD [address] [place] [phone] 11/23/2025 4:00 PM EDT Follow Up [facility] Internal Medicine [facility] [address] [facility] [address] [place] [address] Claudia Mcknight DO [address] [place] [phone] documented as of this encounter Procedures Procedure Name Priority Date/Time Associated Diagnosis Comments XRAY RESULT SCAN 03/22/2025 12:00 AM EDT LAB SCAN 03/22/2025 12:00 AM EDT LAB SCAN 03/22/2025 12:00 AM EDT documented in this encounter Results * Xray Result Scan (03/22/2025 12:00 AM EDT) us Provider Not In System IMG SCAN REPORTS Final Re sult * Lab Scan (03/22/2025 12:00 AM EDT) us Provider Not In System LAB BLOOD ORDERABLES Sarita l Result * Lab Scan (03/22/2025 12:00 AM EDT) us Provider Not In System LAB BLOOD ORDERABLES Sarita l Result documented in this encounter Visit Diagnoses Not on filedocumented in this encounter Additional Health Concerns Assessment Noted Time PHQ-9 Depression Total Score: 0 05/18/20 7:23 AM EDT documented as of this encounter Care Teams Feather Renovator Relationship Specialty Start Date End Date Claudia Mcknight DO [address] [place] [phone] PCP - General Family Medicine 05/18/24 documented as of this encounter
--- OUTSIDE RECORDS SUMMARY | 2025-06-16 18:45 | XMS_ITS | Encounter Summary ---
Author Organization [facility] Address [address] [place] [address] Care Team Providers Care Commercial Litigation Attorney Name Role Phone Claudia Mcknight DO Primary Care Provi errol Encounter Details Date Type Department Care Team (Late st Contact Info) Description 06/30/[address] [facility] Internal Medicine [facility] [address] [facility] [address] [place], [place] [address] External, Provider Social History Tobacco Use Types [...] Friends and Family Patient declined 03/08/2019 Attends Voodoo Services Patient declined 02/09 Active Member of Clubs or Organizations Patient declined 03/08/2019 Attends Club or Organization Meetings Patient de clined 03/08/2019 Marital Status Patient declined 03/08/2019 AUDIT-C Answer Date Recorded Frequency of Alcohol Consumption Never 09/27/2019 Average Number of Drinks Not on file 020 Frequency of Binge Drinking Not on file 09/11 PHQ-2 Answer Date Recorded PHQ-2 Total Score 0 06/25/2024 [facility] [place] of Occupat ional Health - Occupational Stress [...] Description 07/12/2025 3:[address] [facility] Cardiology [facility] [address] [facility] [address] [place] [address] Srinath Stallings MD [address] [facility] [address] [place] [phone] 08/22/2025 3:45 PM EST [facility] General Surgery [facility] [address] [place] [address] Kimberlee Ace MD [address] [place] [phone] 09/05/2025 9:20 AM EST Follow Up [facility] [address] [place] [address] Dayana Franz MD [address] [place] [phone] 09/14/2025 12:45 PM EST Office Visit [facility] [address] [address] Capo Ellington MD [address] [place] [phone] 11/23/2025 4:[address] [facility] Internal Medicine [facility] [address] [facility] [address] [place], [place] [address] Claudia Mcknight DO [address] [place] [address] [address] [place] [address] documented as of this encounter Procedures Procedure Name Priority Date/Time Associated Diagnosis Comments PATHOLOGY REPORT (L) Routine 06/25/2024 10:26 AM EST documented in this encounter Results * Pathology report (L) (06/25/2024 10:26 AM EST) Blood us Provider External PATHOLOGY/CYTOLOGY ORDERABLES Final Result documented in this encounter Visit Diagnoses Not on filedocumented in this encounter Additional Health Concerns Assessment Noted Time PHQ-9 Depression Total Score: 0 05/18/20 24 7:23 AM EDT documented as of this encounter Care Teams Commercial Litigation Attorney Relationship Specialty Start Date End Date Claudia Mcknight DO [address] [place] [address] [address] [place] [phone] PCP - General Family Medicine 05/18/24 documented as of this encounter
--- OUTSIDE RECORDS SUMMARY | 2025-06-16 18:45 | XMS_ITS | Encounter Summary ---
Author Organization [facility] Address [address] [place] [address] Care Team Providers Care Director Of Head Start Name Role Phone Ankit Edge Primary Care Provider [phone] Yasir Winter MD Unavailable [phone] Manjit Bryant MD Primary Care Provider Unav ailable Antonio-Pospisil, Claudia DO Unavailable [phone] Antonio-Pospisil, Claudia DO Primary Care Provi errol Encounter Details Date Type Department Care Team (Late st Contact Info) Description 10/15/2021 Scanned Document [facility] [address] [place] [address] Yasir Winter MD [address] [place], [place] [phone] Social History Tobacco Use Types Packs/Day Years [...] on file documented as of this encounter Procedures Procedure Name Priority Date/Time Associated Diagnosis Comments PATHOLOGY REPORT 10/15/2021 4:15 PM EST documented in this encounter Results * PATHOLOGY REPORT (10/15/2021 4:15 PM EST) Yasir Winter MD PATHOLOGY/CYTOLOGY ORDERABLES F inal Result documented in this encounter Visit Diagnoses Not on filedocumented in this encounter Care Teams Director Of Head Start Relationship Specialty Start Date End Date Ankit Edge PA [address] [place] [address] PCP - General 01/22/21 06/30/22 Manjit Bryant MD [facility] [address], [place] PCP - General Internal Medicine 07/01/22 06/02/24 Claudia Otto DO [address] [place] [address] PCP - General Family Medicine 06/15/24 Yasir Winter MD [facility] [address] [place] [address] Gastroenterology 01/22/21 Claudia Otto DO [address] [place] [address] Family Medicine 05/21/24 documented as of this encounter
--- OUTSIDE RECORDS SUMMARY | 2025-06-16 18:45 | XMS_ITS | Encounter Summary ---
Author Organization [facility] Address [address] [place] [address] Care Team Providers Care Longwall Machine Operator Helper Name Role Phone Yasir Winter MD Unavailable [phone] Manjit Bryant MD Primary Care Provider Jairo ailable Antonio-PospisilClaudia DO Unavailable [phone] Antonio-Pospisil, Claudia DO Primary Care Provi errol Encounter Details Date Type Department Care Team (Late st Contact Info) Description 07/25/2022 Scanned Document [facility] [address] [place] [phone] Gastroenterology, Scan Social History Tobacco Use Types [...] suspected to have Coronavirus/COVID-19? No / Unsure 07/01/2022 3:59 PM EST documented as of this encounter Plan of Treatment Not on file documented as of this encounter Visit Diagnoses Not on filedocumented in this encounter Care Teams Longwall Machine Operator Helper Relationship Specialty Start Date End Date Manjit Bryant MD [address] [place] [address] PCP - General Internal Medicine 07/01/22 06/02/24 Claudia Otto DO [address] [place] [address] PCP - General Family Medicine 06/15/24 Yasir Winter MD [facility] [address] [place] [place] [address] Gastroenterology 01/22/21 Claudia Otto DO [address] [place] [address] Family Medicine 05/21/24 documented as of this encounter
--- OUTSIDE RECORDS SUMMARY | 2025-06-16 18:46 | XMS_ITS | Encounter Summary ---
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 Enjoys going to Confucianism, working around the house Alcohol Use Standard Drinks/Week Comments Not Currently 0 (1 standard drink = 0.6 oz pur e alcohol) [facility] Utilities Answer Date Recorded In the past 12 months has [employer] electric, gas, oil, or water company threatened to shut off services in your home? Yes 05/21/2025 Humiliation, Afraid, Rape, and Kick questionnair e [...] Friends and Family Patient declined 03/08/2019 Attends Jew Services Patient declined 02/09 Active Member of Clubs or Organizations Patient declined 03/08/2019 Attends Club or Organization Meetings Patient de clined 03/08/2019 Marital Status Patient declined 03/08/2019 AUDIT-C Answer Date Recorded Frequency of Alcohol Consumption Never 09/27/2019 Average Number of Drinks Not on file 020 Frequency of Binge Drinking Not on file 09/11 PHQ-2 Answer Date Recorded PHQ-2 Total Score 0 05/25/2025 [facility] of Occupat ional Health - Occupational Stress Questionnaire Answer Date Recorded Feeling of Stress Only a little 09/27/2019 Exercise Vital Sign Answer Date Recorde d Days of Exercise per Week 0 days 2019 Minutes of Exercise per Session 0 min 09/27/2019 Hunger Vital Sign Answer Date Recorded Within the past 12 months, y ou worried that your food would run out before you got the money to buy more. Sometimes true Within the past 12 months, t he food you bought just didn't last and you didn't have money to get more. Sometimes true 06/2025 PRAPARE - Transportation Answer Date Re corded In the past 12 months, has l ack of transportation kept you from medical appointments or from getting medications? No 05/11 In the past 12 months, has l ack of transportation kept you from meetings, work, or from getting things needed for daily living? No 05/21/2025 Housing Stability Answer Date Recorded Think about the place you li ve. Do you have problems with any of the following? Patient declined 05/21/[address] you li ve[address] Do you have problems with any of the following? Patient declined 05/21/2025 Sex and Gender Information Value Date Recorded [...] 3:45 PM EST Follow Up [facility] [address] [facility] [facility] [address] [place] [address] Srinath Stallings MD [address] [facility] [address] [place] [phone] 08/22/2025 3:45 PM EST Initial consult [facility] General Surgery [facility] [address] [place] [address], [place] [address] Kimberlee Ace MD [address] [place] [phone] 09/05/2025 9:20 AM EST Follow Up [facility] [address] [address] Dayana Franz MD [address] [place] [phone] 09/14/2025 12:45 PM EST Office Visit [facility] Urology [address] [address] Capo Ellington MD [address] [place] [phone] 11/23/2025 4:00 PM EDT Follow Up [facility] Internal Medicine [facility] [address] [place] [address] [address] [place] [address] Claudia Mcknight DO [address] [place] [address] [address] [place] [phone] documented as of this encounter Visit Diagnoses Not on filedocumented in this encounter Additional Health Concerns Assessment Noted Time PHQ-9 Depression Total Score: 0 05/18/20 24 7:23 AM EDT documented as of this encounter Care Teams Skoog Operator Relationship Specialty Start Date End Date Claudia Mcknight DO [address] [place] [address] [address] [place] [phone] PCP - General Family Medicine 05/18/24 documented as of this encounter
--- OUTSIDE RECORDS SUMMARY | 2025-06-16 18:46 | XMS_ITS | Encounter Summary ---
Author Organization [facility] Address [address] [place] [address] Care Team Providers Care Customs Compliance Director Name Role Phone Yasir Winter MD Unavailable [phone] Manjit Bryant MD Primary Care Provider Unav ailable Claudia Otto DO Unavailable [phone] Claudia Otto DO Primary Care Provi errol Encounter Details Date Type Department Care Team (Late st Contact Info) Description 12/25/2023 Scanned Document [facility] [address] [place] [phone] Gastroenterology, Scan Social History Tobacco Use Types [...] on filedocumented in this encounter Care Teams Customs Compliance Director Relationship Specialty Start Date End Date Manjit Bryant MD [address] [place] [address] [address] [place] [address] PCP - General Internal Medicine 07/01/22 06/02/24 Claudia Otto DO [address] [facility] [address] [place] [address] PCP - General Family Medicine 06/15/24 Yasir Winter MD [address] [place] [address] [address] [place] [address] Gastroenterology 01/22/21 Claudia Otto DO [address] [facility] [address] [place] [address] Family Medicine 05/21/24 documented as of this encounter
--- OUTSIDE RECORDS SUMMARY | 2025-06-16 18:46 | XMS_ITS | Encounter Summary ---
Author Organization [facility] Address [address] [place] [address] Care Team Providers Care Microsoft Exchange Administrator Name Role Phone Yasir Winter MD Unavailable [phone] Claudia Otto DO Unavailable [phone] Claudia Otto DO Primary Care Provi errol Encounter Details Date Type Department Care Team (Late st Contact Info) Description 06/06/2024 Scanned Document [facility] [address] [place] [phone] Provider, Generic Social History Tobacco Use Types Packs/Day Years [...] on filedocumented in this encounter Care Teams Microsoft Exchange Administrator Relationship Specialty Start Date End Date Claudia Otto DO 8 [facility] [address] [place] [address] PCP - General Family Medicine 06/15/24 Yasir Winter MD [address] [place] [address] [address] [place] [address] Gastroenterology 01/22/21 Claudia Otto DO 8 [facility] [address] [place] [address] Family Medicine 05/21/24 documented as of this encounter
--- OUTSIDE RECORDS SUMMARY | 2025-06-16 18:47 | XMS_ITS | Encounter Summary ---
Author Organization [facility] Address [address] [place] [address] Care Team Providers Care Pin Drafter Operator Name Role Phone Yasir Winter MD Unavailable [phone] Claudia Otto DO Unavailable [phone] AntonioClaudia Ozuna DO Primary Care Provi errol Encounter Details Date Type Department Care Team (Late st Contact Info) Description 08/23/2024 Scanned Document [facility] [address] [place] [phone] Provider, Generic Social History Tobacco Use [...] on file documented as of this encounter Goals Goal Patient Goal Type Associated Problems Recent Progress Patient-Stated? Author PT STG 1 Physical Therapy No Melody Watkins, PT Note: Patient will decrease knee pain <2/10 in order to increase quality of life in 4 weeks. PT STG 2 Physical Therapy No Melody Watkins, PT Note: Patient will increase knee flexion AROM to at least 130 degrees to facilitate improved functional mobility in 4 weeks. PT STG 3 Physical Therapy No Melody Watkins PT Note: Patient will increase knee strength by at least 1/2 grade in all planes to facilitate reciprocal ascending/descending of one flight of stairs in 4 weeks. PT LTG 1 Physical Therapy No Melody Watkins PT Note: Patient reporting pain no greater than 1/10 while performing all functional activities in 6 weeks. PT LTG 2 Physical Therapy No Melody Watkins PT Note: Patient will demonstrate full knee ROM and normalized gait pattern in order to maximize function in 6 weeks. PT LTG 3 Physical Therapy No Melody Watkins PT Note: Patient will stand >60 minutes demonstrating postural awareness without increase in symptoms in 6 weeks. PT LTG 4 Physical Therapy No Melody Watkins PT Note: Patient will be independent with HEP/ self-management of symptoms in 6 weeks. documented as of this encounter Visit Diagnoses Not on filedocumented in this encounter Care Teams Pin Drafter Operator Relationship Specialty Start Date End Date Claudia Otto DO [address] [place] [address] PCP - General Family Medicine 06/15/24 Yasir Winter MD [facility] [place] [address] Gastroenterology 01/22/21 Claudia Otto DO [address] [place] [address] Family Medicine 05/21/24 documented as of this encounter
--- OUTSIDE RECORDS SUMMARY | 2025-06-16 18:47 | XMS_ITS | Encounter Summary ---
Author Organization [facility] Address [address] [place] [address] Care Team Providers Care Dealership Manager Name Role Phone Claudia Mcknight DO Primary Care Provi errol Reason for Visit * Reason Comments Medication Refill Encounter Details Date Type Department Care Team (Late st Contact Info) Description 05/10/2025 Refill [facility] Internal Medicine [facility] [address] 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 Enjoys going to Sikhism, working around the house Alcohol Use Standard [...] Friends and Family Patient declined 03/08/2019 Attends Denominational Services Patient declined 02/09 Active Member of Clubs or Organizations Patient declined 03/08/2019 Attends Club or Organization Meetings Patient de clined 03/08/2019 Marital Status Patient declined 03/08/2019 AUDIT-C Answer Date Recorded Frequency of Alcohol Consumption Never 09/27/2019 Average Number of Drinks Not on file 020 Frequency of Binge Drinking Not on file 09/11 PHQ-2 Answer Date Recorded PHQ-2 Total Score 0 03/30/2025 [facility] of Occupat ional Health - Occupational [...] 3:45 PM EST Follow Up [facility] [address] [facility] [address] [place] [address] Srinath Stallings MD [address] [facility] [address] [place] [phone] 08/22/2025 3:45 PM EST Initial consult [facility] General Surgery [facility] [address] [place] [address] Kimberlee Ace MD [address] [place] [address] 09/05/2025 9:20 AM EST Follow Up [facility] [address] [place], [place] [address] Dayana Franz MD [address] [place] [address] 09/14/2025 12:45 PM EST [facility] [address] [place] [address] Capo Ellington MD [address] [place] [phone] 11/23/2025 4:00 PM EDT Follow Up [facility] Internal Medicine [facility] [address] [facility] [address] [place], [place] [address] Claudia Mcknight DO [address] [place] [address] [address] [place] [phone] documented as of this encounter Visit Diagnoses Not on filedocumented in this encounter Additional Health Concerns Assessment Noted Time PHQ-9 Depression Total Score: 0 05/18/20 7:23 AM EDT documented as of this encounter Care Teams Dealership Manager Relationship Specialty Start Date End Date Claudia Mcknight DO [address] [place] [address] [address] [place] [phone] PCP - General Family Medicine 05/18/24 documented as of this encounter
--- OUTSIDE RECORDS SUMMARY | 2025-06-16 18:47 | XMS_ITS | Encounter Summary ---
Author Organization [facility]up and Home Health Address [address] [place] [address] Care Team Providers Care Section Cutter Name Role Phone Claudia Mcknight DO Primary Care Provi errol Reason for Visit * Reason Onset Date Comments Other 05/26/2025 Encounter Details Date Type Department Care Team (Late st Contact Info) Description 05/26/2025 Telephone [facility] Internal Medicine [facility] 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 Enjoys going to [employer], working around the house Alcohol Use Standard Drinks/Week Comments Not Currently 0 (1 standard drink = 0.6 oz pur e alcohol) [facility] Utilities Answer Date Recorded In the past 12 months has [employer] electric, gas, oil, or water company threatened [...] Friends and Family Patient declined 03/08/2019 Attends Caodaism Services Patient declined 02/09 Active Member of Clubs or Organizations Patient declined 03/08/2019 Attends Club or Organization Meetings Patient de clined 03/08/2019 Marital Status Patient declined 03/08/2019 AUDIT-C Answer Date Recorded Frequency of Alcohol Consumption Never 09/27/2019 Average Number of Drinks Not on file 020 Frequency of Binge Drinking Not on file 09/11 PHQ-2 Answer Date Recorded PHQ-2 Total Score 0 05/25/2025 [facility] of Occupat ional Health - Occupational [...] encounter Miscellaneous Notes * Telephone Encounter - Analisa Lind RN - 05/26/2025 11:15 AM EDT Reviewed pt's chart; still waiting for 2021 colonoscopy record from GI * Telephone Encounter - Analisa Lind RN - 05/26/2025 10:07 AM EDT Message forwarded to Dr. Alvarez-Juan Luis for awareness * Telephone Encounter - Judy Hardy - 05/26/2025 10:04 AM EDT Message from [facility] [place] [facility] did receive the referral for patient for a colonoscopy. Patient had on in 2021 and not sure until 2026. They are faxing over the 2021 report, but if patient needs to be seen for another issue please let them know. [phone] documented in this encounter Plan of Treatment Upcoming Encounters Date Type Department Care Team (Late st Contact Info) Description 07/12/2025 3:45 PM EST Follow Up [facility] Cardiology [facility] [address] [facility] [address] [place], [place] [address] Srinath Stallings MD [address] [facility] [address] [place] [phone] 08/22/2025 3:45 PM EST Initial consult [facility] General Surgery [facility] [address] [place], [place] [address] Kimberlee Ace MD [address] [place] [address] 09/05/2025 9:20 AM EST Follow Up [facility] Sleep [facility] [address] [facility] [place], [place] [phone] Dayana Franz MD [address] [place] [address] 09/14/2025 12:45 PM EST Office Visit [facility] Urology [facility] [address] [place] [address] Capo Ellington MD [address] [place] [address] 11/23/2025 4:00 PM EDT Follow Up [facility] Internal Medicine [facility] [address] [facility] [address] [place], [place] [address] Claudia Mcknight DO [address] [place] [phone] documented as of this encounter Visit Diagnoses Not on filedocumented in this encounter Additional Health Concerns Assessment Noted Time PHQ-9 Depression Total Score: 0 05/18/20 7:23 AM EDT documented as of this encounter Care Teams Section Cutter Relationship Specialty Start Date End Date Claudia Mcknight DO [address] [place] [address] [address] [place] [phone] PCP - General Family Medicine 05/18/24 documented as of this encounter
--- OUTSIDE RECORDS SUMMARY | 2025-06-16 18:47 | XMS_ITS | Encounter Summary ---
Author Organization [facility] Address [address] [place] [address] Care Team Providers Care Special Service Officer Name Role Phone Claudia Mcknight DO Primary Care Provi errol Encounter Details Date Type Department Care Team (Late st Contact Info) Description 04/19/2025 Results Follow-Up [facility] Internal Medicine [facility] 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 Enjoys going to [employer], working around the house Alcohol Use Standard [...] Friends and Family Patient declined 03/08/2019 Attends Jainism Services Patient declined 02/09 Active Member of Clubs or Organizations Patient declined 03/08/2019 Attends Club or Organization Meetings Patient de clined 03/08/2019 Marital Status Patient declined 03/08/2019 AUDIT-C Answer Date Recorded Frequency of Alcohol Consumption Never 09/27/2019 Average Number of Drinks Not on file 020 Frequency of Binge Drinking Not on file 09/11 PHQ-2 Answer Date Recorded PHQ-2 Total Score 0 03/30/2025 [facility] of Occupat ional [facility] - Occupational Stress Questionnaire Answer Date [...] as of this encounter Miscellaneous Notes * Result Encounter Note - Claudia Mcknight DO - 04/19/2025 12:39 PM EDT Labs stable. Kidney function and potassium normal. A1c 5.8 continue low sugar diet. Lipids improved. Continue current medications. documented in this encounter Plan of Treatment Upcoming Encounters Date Type Department Care Team (Late st Contact Info) Description 07/12/2025 3:45 PM EST Follow Up [facility] Cardiology [facility] [address] [facility] [address] [facility] [address] [place] [address] Srinath Stallings MD [address] [facility] [address] [place] [phone] 08/22/2025 3:45 PM EST Initial consult [facility] General Surgery [place] [address] [place] [address] Kimberlee Ace MD [address] [place] [phone] 09/05/2025 9:20 AM EST Follow Up [facility] [place] [address] [address] Dayana Franz MD [address] [place] [phone] 09/14/2025 12:45 PM EST Office Visit [facility] Urology [place] [address] [place], [place] [address] Capo Ellington MD [address] [place] [phone] 11/23/2025 4:00 PM EDT Follow Up [facility] Internal Medicine [facility] [address] [facility] [address] [place], [place] [address] Claudia Mcknight DO [address] [place] [address] [address] [place] [phone] documented as of this encounter Visit Diagnoses Not on filedocumented in this encounter Additional Health Concerns Assessment Noted Time PHQ-9 Depression Total Score: 0 05/18/20 7:23 AM EDT documented as of this encounter Care Teams Special Service Officer Relationship Specialty Start Date End Date Claudia Mcknight DO [address] [place] [address] [address] [place] [phone] PCP - General Family Medicine 05/18/24 documented as of this encounter
--- OUTSIDE RECORDS SUMMARY | 2025-06-16 18:47 | XMS_ITS | Encounter Summary ---
Author Organization [facility] Address [address] [place] [address] Care Team Providers Care Medical Grade Shoemaker Name Role Phone Yasir Winter MD Unavailable [phone] Claudia Otot DO Unavailable [phone] AntonioClaudia Ozuna DO Primary Care Provi errol Encounter Details Date Type Department Care Team (Late st Contact Info) Description 08/25/2024 Scanned Document [facility] [address] [place] [phone] Provider, Generic Social History Tobacco Use [...] on filedocumented in this encounter Care Teams Medical Grade Shoemaker Relationship Specialty Start Date End Date Claudia Otto DO [address] [place] [address] PCP - General Family Medicine 06/15/24 Yasir Winter MD [facility] [address] [place] [address] Gastroenterology 01/22/21 Claudia Otto DO [address] [place] [address] Family Medicine 05/21/24 documented as of this encounter
--- OUTSIDE RECORDS SUMMARY | 2025-06-16 18:47 | XMS_ITS | Encounter Summary ---
Author Organization [facility]up and Home Health Address [address] [place] [address] Care Team Providers Care Paint Roller Covers Supervisor Name Role Phone Claudia Mcknight DO Primary Care Provi errol Reason for Visit * Reason Onset Date Comments Referral 04/14/2025 Encounter Details Date Type Department Care Team (Late st Contact Info) Description 04/14/2025 Telephone [facility] Internal Medicine [facility] 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 Enjoys going to [employer], working around the house Alcohol Use Standard [...] Date Recorded PHQ-2 Total Score 0 03/30/2025 [facility] of Occupat ional Health - [...] Telephone Encounter - Analisa Lind RN - 04/14/2025 1:44 PM EDT Per chart review; the pt has a scheduled appt with Dr. Ace on 05/05 * Telephone Encounter - Analisa Lind RN - 04/14/2025 11:24 AM EDT Spoke with the pt's spouse Recommended Dr. Ace and Dr. Pan; spouse will contact Dr. Ace's office * Telephone Encounter - Laura Fitzgerald - 04/14/2025 9:52 AM EDT Referral: Referral Request: Message from [facility] What is the reason for referral? Lump on back Have you been seen before for this problem? yes What type of doctor would you like to see? General Surgery Do you have a specific doctor or practice that you would like to go to? No, patient would like a recommendation. Please advise. Patient was referred to Dr Baig but office is not accommodating to patient's work schedule. Is there another Surgeon that can be referred. Date of last office visit with PCP: 03/30/25 Patient's Insurance: N/A Call back # [phone] documented in this encounter Plan of Treatment Upcoming Encounters Date Type Department Care Team (Late st Contact Info) Description 07/12/2025 3:45 PM EST Follow Up [facility] Cardiology [facility] [address] [facility] [address] [place], [place] [address] Srinath Stallings MD [address] [facility] [address] [place] [phone] 08/22/2025 3:45 PM EST Initial consult [facility] General Surgery [facility] [address] [place] [address] Kimberlee Ace MD [address] [place] [phone] 09/05/2025 9:20 AM EST Follow Up [facility] Sleep [address] [address] Dayana Franz MD [address] [place] [phone] 09/14/2025 12:45 PM EST Office Visit [facility] Urology [place] [address] [place] [address] Capo Ellington MD [address] [place] [phone] 11/23/2025 4:00 PM EDT Follow Up [facility] Internal Medicine [facility] [address] [facility] [address] [place] [address] Claudia Mcknight DO [address] [place] [address] [address] [place] [phone] documented as of this encounter Visit Diagnoses Not on filedocumented in this encounter Additional Health Concerns Assessment Noted Time PHQ-9 Depression Total Score: 0 05/18/20 24 7:23 AM EDT documented as of this encounter Care Teams Paint Roller Covers Supervisor Relationship Specialty Start Date End Date Claudia Mcknight DO [address] [place] [address] [address] [place] [phone] PCP - General Family Medicine 05/18/24 documented as of this encounter
--- OUTSIDE RECORDS SUMMARY | 2025-06-16 18:47 | XMS_ITS | Encounter Summary ---
Author Organization [facility]up and Home Health Address [address] [place] [address] Care Team Providers Care Poolroom Table Attendant Name Role Phone Claudia Mcknight DO Primary Care Provi errol Reason for Visit * Reason Onset Date Comments Other 03/22/2025 Encounter Details Date Type Department Care Team (Late st Contact Info) Description 03/22/2025 Telephone [facility] Sleep Center [address], [address] [place], [place] [phone] Dayana Franz MD [address] [place] [address] Other Social History Tobacco Use Types Packs/Day Years Used Date Smoking Tobacco: Never Smokeless Tobacco: Never Comments:quit 16 yrs ago to Graciela, 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 Enjoys going to Taoism, working around the house Alcohol Use Standard [...] Friends and Family Patient declined 03/08/2019 Attends Jehovah'S Witness Services Patient declined 02/09 Active Member of Clubs or Organizations Patient declined 03/08/2019 Attends Club or Organization Meetings Patient de clined 03/08/2019 Marital Status Patient declined 03/08/2019 AUDIT-C Answer Date Recorded Frequency of Alcohol Consumption Never 09/27/2019 Average Number of Drinks Not on file 020 Frequency of Binge Drinking Not on file 09/11 PHQ-2 Answer Date Recorded PHQ-2 Total Score 0 09/06/2024 [facility] of Occupat ional Health - Occupational [...] encounter Miscellaneous Notes * Telephone Encounter - Rocio Salgado - 03/22/2025 1:20 PM EDT Pt currently in the hospital and cannot make the appointment for his 90 day keenan for today ( 03/22/25at 3pm), pt rescheduled appt for June 07, 2025. documented in this encounter Plan of Treatment Upcoming Encounters Date Type Department Care Team (Late st Contact Info) Description 07/12/2025 3:45 PM EST Follow Up [facility] Cardiology [facility] [address] [place], [place] [address] Srinath Stallings MD [address] [place] [phone] 08/22/2025 3:45 PM EST Initial consult [facility] General Surgery [address] [place] [address] Kimberlee Ace MD [address] [place] [phone] 09/05/2025 9:20 AM EST Follow Up [facility] Sleep [address] [address] Dayana Franz MD [address] [place] [phone] 09/14/2025 12:45 PM EST Office Visit [facility] Urology [address] [address] Capo Ellington MD [address] [place] [phone] 11/23/2025 4:00 PM EDT Follow Up [facility] Internal Medicine [facility] [address] [facility] [address] [place] [address] Claudia Mcknight DO [address] [place] [address] [address] [place] [phone] documented as of this encounter Visit Diagnoses Not on filedocumented in this encounter Additional Health Concerns Assessment Noted Time PHQ-9 Depression Total Score: 0 05/18/20 7:23 AM EDT documented as of this encounter Care Teams Poolroom Table Attendant Relationship Specialty Start Date End Date Claudia Mcknight DO [address] [place] [address] [address] [place] [address] PCP - General Family Medicine 05/18/24 documented as of this encounter
--- OUTSIDE RECORDS SUMMARY | 2025-06-16 18:47 | XMS_ITS | Encounter Summary ---
Author Organization [facility] Address [address] [place] [address] Care Team Providers Care Silver Service Waiter Name Role Phone Yasir Winter MD Unavailable [phone] Claudia Otto DO Unavailable [phone] AntonioClaudia Ozuna DO Primary Care Provi errol Encounter Details Date Type Department Care Team (Late st Contact Info) Description 06/15/2024 Scanned Document [facility] [address] [place] [phone] Yasir Winter MD [facility] [address] [place], [place] [phone] Social History Tobacco Use Types Packs/Day Years [...] PM EST documented as of this encounter Progress Notes * Caity Membreno MA - 06/15/2024 3:02 PM EST Informed patient of results; pathology routed to PCP Patient is doing relatively fine if symptoms come back he will schedule a follow up documented in this encounter Plan of Treatment Not on file documented as of this encounter Procedures Procedure Name Priority Date/Time Associated Diagnosis Comments PATHOLOGY REPORT 06/15/2024 12:0 0 AM EST documented in this encounter Results * Pathology (06/15/2024 12:00 AM EST) Yasir Winter MD PATHOLOGY/CYTOLOGY ORDERABLES F inal Result documented in this encounter Visit Diagnoses Not on filedocumented in this encounter Care Teams Silver Service Waiter Relationship Specialty Start Date End Date Claudia Otto DO [address] [place] [address] PCP - General Family Medicine 06/15/24 Yasir Winter MD [facility] [address] [place] [address] Gastroenterology 01/22/21 Claudia Otto DO [address] [place] [address] Family Medicine 05/21/24 documented as of this encounter
--- OUTSIDE RECORDS SUMMARY | 2025-06-16 18:48 | XMS_ITS | Encounter Summary ---
Author Organization [facility] oup and Home Health Address [address] [place] [address] Care Team Providers Care Hull Molder Name Role Phone Claudia Mcknight DO Primary Care Provi errol Encounter Details Date Type Department Care Team (Late st Contact Info) Description 06/09/2025 Results Follow-Up [facility] Internal Medicine [facility] 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 Gnosticism, working around the house Alcohol Use Standard Drinks/Week Comments Not Currently 0 (1 standard drink = 0.6 oz pur e alcohol) [facility] Utilities Answer Date Recorded In the past 12 months has [employer] electric, gas, oil, or water company threatened [...] Friends and Family Patient declined 03/08/2019 Attends [employer] Services Patient declined 02/09 Active Member of Clubs or Organizations Patient declined 03/08/2019 Attends Club or Organization Meetings Patient de clined 03/08/2019 Marital Status Patient declined 03/08/2019 AUDIT-C Answer Date Recorded Frequency of Alcohol Consumption Never 09/27/2019 Average Number of Drinks Not on file 020 Frequency of Binge Drinking Not on file 09/11 PHQ-2 Answer Date Recorded PHQ-2 Total Score 0 05/25/2025 [facility] of Occupat ional Health - Occupational Stress [...] Notes * Result Encounter Note - Claudia Mcknight, DO Pastor 06/09/2025 11:30 AM EDT Colonoscopy 10/12/2021 diverticulosis whole colon. Repeat in 5 years. documented in this encounter Plan of Treatment Upcoming Encounters Date Type Department Care Team (Late st Contact Info) Description 07/12/2025 3:45 PM EST Follow Up [facility] Cardiology [facility] Rd [address] [facility] [address] [place] [address] Srinath Stallings MD [address] [facility] [address] [place] [address] 08/22/2025 3:45 PM EST Initial consult [facility] General Surgery [facility] [address] [place], [place] [address] Kimberlee Ace MD [address] [place] [phone] 09/05/2025 9:20 AM EST Follow Up [facility] Sleep [facility] [address] [place] [address] Dayana Franz MD [address] [place] [phone] 09/14/2025 12:45 PM EST Office Visit [facility] Urology [address] [address] Capo Ellington MD [address] [place] [phone] 11/23/2025 4:00 PM EDT Follow Up [facility] Internal Medicine [facility] [address] [facility] [address] [place] [address] Claudia Mcknight DO [address] [facility] [address] [place] [address] documented as of this encounter Visit Diagnoses Not on filedocumented in this encounter Additional Health Concerns Assessment Noted Time PHQ-9 Depression Total Score: 0 05/18/20 24 7:23 AM EDT documented as of this encounter Care Teams Hull Molder Relationship Specialty Start Date End Date Claudia Mcknight DO [address] [facility] [address] [place] [phone] PCP - General Family Medicine 05/18/24 documented as of this encounter
--- OUTSIDE RECORDS SUMMARY | 2025-06-16 18:48 | XMS_ITS | Encounter Summary ---
Author Organization [facility] Address [address] [place] [address] Care Team Providers Care Dj Instructor Name Role Phone Yasir Winter MD Unavailable [phone] Claudia Otto DO Unavailable [phone] AntonioClaudia Ozuna DO Primary Care Provi errol Encounter Details Date Type Department Care Team (Late st Contact Info) Description 02/21/2025 Scanned Document [address] [place] [phone] Provider, Generic Social History Tobacco Use Types [...] PT STG 2 Physical Therapy No Melody Watkins PT Note: Patient will increase knee flexion [...] on filedocumented in this encounter Care Teams Dj Instructor Relationship Specialty Start Date End Date Claudia Otto DO [address] [place] [address] PCP - General Family Medicine 06/15/24 Yasir Winter MD [address] [place] [address] [address] [place] [address] Gastroenterology 01/22/21 Claudia Otto DO [address] [place] [address] Family Medicine 05/21/24 documented as of this encounter
--- OUTSIDE RECORDS SUMMARY | 2025-06-16 18:48 | XMS_ITS | Clinical Summary ---
Author Organization [address] Address [address] [place] [address], [place] [address] Phone Care Team Providers Care Instrument Assembler Name Role Phone Claudia Mcknight DO Primary Care Provi errol Allergies No known active allergies Medications diclofenac (VOLTAREN-XR) 100 mg 24 hr tabletIndications:Fatuma mbar radiculopathy,Isthmi c spondylolisthesis Take 1 tablet (100 mg total) by mouth daily as needed for pain. 30 tablet 2 025 Active olmesartan-amLODIPin e-hydrocholorthiazid e (TRIBENZOR) 40-10-25 mg tabletIndications:Pr imary hypertension Take 1 tablet by mouth daily. 90 tablet 3 025 Active dutasteride (AVODART) 0.5 mg capsuleIndications:L ower urinary tract symptoms (LUTS) Take 1 capsule (0.5 mg total) by mouth daily. 90 capsule 3 025 Active pantoprazole (PROTONIX) 40 mg tabletIndications:ga stroesophageal reflux disease Take 1 tablet (40 mg total) by mouth 2 (two) times daily (0800, 1800). 180 tablet 3 025 Active sucralfate (CARAFATE) 1 gram tabletIndications:ga stroesophageal reflux disease Take 1 tablet (1 g total) by mouth daily. 90 tablet 3 025 Active potassium chloride (K-TAB) 20 mEq extended release tabletIndications:Hy pokalemia Take 1 tablet (20 mEq total) by mouth daily. 90 tablet 3 Active doxazosin (CARDURA) 2 mg tabletIndications:Lo wer urinary tract symptoms (LUTS),Primary hypertension Take 1 tablet (2 mg total) by mouth nightly. 90 tablet 3 Active atorvastatin (LIPITOR) 20 mg tabletIndications:Mi xed hyperlipidemia Take 1 tablet (20 mg total) by mouth daily. 90 tablet 3 Active mometasone (NASONEX) 50 mcg/actuation nasal sprayIndications:Chr onic rhinitis Use 2 sprays in each nostril daily. 51 g 3 Active ciclopirox (PENLAC) 8 % solutionIndications: Onychomycosis of great toe Apply topically nightly. 6.6 mL 3 Active tadalafiL (CIALIS) 20 mg tabletIndications:Ma le erectile disorder Take 1 tablet (20 mg total) by mouth daily as needed for erectile dysfunction. 10 tablet 2 Active terbinafine HCL (LAMISIL) 250 mg tabletIndications:On ychomycosis of great toe Take 1 tablet (250 mg total) by mouth daily. 90 tablet Active terbinafine HCL (LAMISIL) 250 mg tablet Take 1 tablet (250 mg total) by mouth daily. 30 tablet 2024 Discontinued(! Reorder (No Cancel Msg)) meloxicam (MOBIC) 15 mg tablet Take 1 tablet (15 mg total) by mouth daily. 2024 Discontinued potassium chloride (K-TAB) 20 mEq extended release tabletIndications:Hy pokalemia Take 1 tablet (20 mEq total) by mouth daily. 90 tablet 1 2024 Discontinued(! Reorder (No Cancel Msg)) sucralfate (CARAFATE) 1 gram tabletIndications:ga stroesophageal reflux disease Take 1 tablet (1 g total) by mouth daily. 90 tablet 3 2024 Discontinued(! Reorder (No Cancel Msg)) pantoprazole (PROTONIX) 40 mg tabletIndications:ga stroesophageal reflux disease Take 1 tablet (40 mg total) by mouth 2 (two) times daily (0800, 1800). 180 tablet 3 2024 Discontinued(! Reorder (No Cancel Msg)) olmesartan-amLODIPin e-hydrocholorthiazid e (TRIBENZOR) 40-10-25 mg tablet Take 1 tablet by mouth daily. 90 tablet 3 2024 Discontinued(! Reorder (No Cancel Msg)) mometasone (NASONEX) 50 mcg/actuation nasal sprayIndications:Chr onic rhinitis Use 2 sprays in each nostril daily. 51 g 3 2024 Discontinued(! Reorder (No Cancel Msg)) dutasteride (AVODART) 0.5 mg capsuleIndications:Rakel cole urinary tract symptoms (LUTS) Take 1 capsule (0.5 mg total) by mouth daily. 90 capsule 3 2024 Discontinued(! Reorder (No Cancel Msg)) doxazosin (CARDURA) 2 mg tabletIndications:Pr imary hypertension,Lower urinary tract symptoms (LUTS) Take 1 tablet (2 mg total) by mouth nightly. 90 tablet 3 2024 Discontinued(! Reorder (No Cancel Msg)) atorvastatin (LIPITOR) 20 mg tabletIndications:Mi xed hyperlipidemia Take 1 tablet (20 mg total) by mouth daily. 90 tablet 3 2024 Discontinued(! Reorder (No Cancel Msg)) terbinafine HCL (LAMISIL) 250 mg tabletIndications:On ychomycosis of great toe Take 1 tablet (250 mg total) by mouth daily. 90 tablet 2024 Discontinued(O ther) nitrofurantoin, macrocrystal-monohyd rate, (MACROBID) 100 mg capsuleIndications:P sabrinaa Take 1 capsule (100 mg total) by mouth every 12 (twelve) hours for 5 days. 10 capsule 025 2024 Active Problems Problem Noted Date Diagnosed Date Peyronie's disease 05/26/2025 Pyuria 05/26/2025 Hypokalemia 03/24/2025 Prediabetes 09/06/2024 Lumbar radiculopathy 09/06/2024 Male erectile disorder 09/06/2024 Mild ascending aorta dilatation 08/16/2024 Chronic rhinitis 07/05/2024 Plantar fasciitis, right 05/25/2024 Obesity, Class I, BMI 30.0-34.9 (see actual BMI) 05/18/2024 Chondromalacia of patellofemoral joint Isthmic spondylolisthesis 05/18/2024 Epidermoid cyst of skin of back 05/18/2024 Onychomycosis of great toe 05/18/2024 Lower urinary tract symptoms (LUTS) 05/18/2024 Diverticulosis 03/22/2022 Primary hypertension 03/22/2022 NBA on CPAP 03/22/2022 Colon polyp 03/22/2022 GERD (gastroesophageal reflux disease) Díaz esophagus 03/22/2022 Overview (03/22/2022): s/p RFA Mixed hyperlipidemia 03/22/2022 Esophageal dysphagia 10/01/2021 Overview (05/18/2024): Last Assessment & Plan: He occasionally gets difficulty swallowing. He chews his food well and mostly symptoms are under good control Resolved Problems Problem Noted Date Diagnosed Date Resolved Date Calculus of left kidney 09/06/2024 08/2 Pain and swelling of toe of right foot 05/18/2024 03/30/2025 Otitis media, right 05/18/2024 09/06/19 Sigmoid diverticulitis 03/14/202103/15 Generalized abdominal pain 03/13/2021 0 03/15/2021 Snoring 11/17/2014 05/18/2024 Substance induced mood disorder (HC Code) 03/30/2025 Encounters Date Type Department Care Team Description 06/09/2025 11:45 AM EDT Office Visit [facility] [address] [place] [address] Claudia Mcknight DO Goland-Van Ryn, Matthew Louis, MD Male erectile disorder (Primary Dx); Peyronie's disease; Screening PSA (prostate specific antigen) 06/09/2025 Telephone [facility] [address] [place] [address] Dayana Franz MD Appointment (Sleep fu) 06/09/2025 Results Follow-Up [facility] Internal Medicine [facility] [address] [facility] [address] [place] [address] Claudia Mcknight DO HM COLONOSCOPY 06/04/2025 Scanned Document INTERFACE DEFAULT [address] [place] [id number] System, Provider Not In 05/26/2025 Telephone [facility] Internal Medicine [facility] [address] [facility] [address] [place] [address] Claudia Mcknight DO Other 05/25/2025 3:00 PM EDT Office Visit [facility] Internal Medicine [place] [address] [facility] [address] [place] [address] Claudia Mcknight DO Annual physical exam (Primary Dx); Need for immunization against influenza; Colon cancer screening; Lumbar radiculopathy; Isthmic spondylolisthesis; Peyronie's disease; Male erectile disorder; Lower urinary tract symptoms (LUTS); Pyuria; Onychomycosis of great toe; Primary hypertension; Hypokalemia; Mild ascending aorta dilatation (HC Code); Mixed hyperlipidemia; Prediabetes; Obesity, Class I, BMI 30.0-34.9 (see actual BMI); NBA on CPAP; Gastroesophageal reflux disease with esophagitis without hemorrhage; Díaz's esophagus with dysplasia; Chronic rhinitis 05/10/2025 Refill [facility] Internal Medicine [place] [address] [place] [address] Claudia Mcknight DO Medication Refill 04/19/2025 Results Follow-Up [facility] Internal Medicine [facility] [address] [facility] [address] [place] [address] Claudia Mcknight DO CBC and differential, Comprehensive metabolic panel, Hemoglobin A1c, Additional followed-up results: 2 04/14/2025 Telephone [facility] Internal Medicine [facility] [address] [facility] [address] [place] [address] Claudia Mcknight DO Referral 03/30/2025 3:00 PM EDT Office Visit [facility] Internal Medicine [facility] [address] [facility] [address] [place] [address] Claudia Mcknight DO Hypokalemia (Primary Dx); Primary hypertension; Prediabetes; Epidermoid cyst of skin of back; Gastroesophageal reflux disease with esophagitis without hemorrhage; Díaz's esophagus with dysplasia; Mixed hyperlipidemia; NBA on CPAP; Lower urinary tract symptoms (LUTS); Esophageal dysphagia; Chronic rhinitis 03/24/2025 Orders Only [facility] Internal Medicine [facility] [address] [facility] [address] [place] [address] Claudia Mcknight DO Hypokalemia (Primary Dx) 03/22/2025 Telephone [facility] Sleep Center [address], [address] [place] [address] Dayana Franz MD Other 03/22/2025 Scanned Document INTERFACE DEFAULT [address] [place] [address] [id number] System, Provider Not In from Last 3 Months Immunizations Immunization Administration Dates Next Due COVID-19, Pfizer, 12yr + up, 30 mcg/0.3 mL 05/09 Influenza, MDCK, trivalent, injectable, preservative free 05/25/2025 Influenza, injectable, MDCK, quad with preservat patty 06/07/2019 Influenza, injectable, quadrivalent, preservativ e free 05/16/2023 Influenza, split virus, trivalent, Preservative Free 05/18/2024,06/12/2017 Td (adult), unspecified formulation 02/01/2025 Tdap 03/22/2022 ZOSTER RECOMBINANT (Shingrix) 03/22/2022 Family History Medical History Relation Name Comments No Known Problems Daughter 5 Hypertension Father Hypertension Mother Hypertension Sister 2 No Known Problems Son 1 Relation Name Status Comments Daughter 5 Alive Father Mother Alive Sister 1 Alive brain tumor Sister 2 Alive Son 1 Alive Social History Tobacco Use Types Packs/Day Years Used Date Smoking Tobacco: Never Smokeless Tobacco: Never Tobacco Cessation:Counseling Given: Not Answered Comments:quit 16 yrs ago to [place], 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 Enjoys going to [employer], working around the house Alcohol Use Standard Drinks/Week Comments Not Currently 0 (1 standard drink = 0.6 oz pur e alcohol) [facility] Utilities Answer Date Recorded In the past 12 months has th e electric, gas, oil, or water company threatened [...] Friends and Family Patient declined 03/08/2019 Attends Church Services Patient declined 02/09 Active Member of Clubs or Organizations Patient declined 03/08/2019 Attends Club or Organization Meetings Patient de clined 03/08/2019 Marital Status Patient declined 03/08/2019 AUDIT-C Answer Date Recorded Frequency of Alcohol Consumption Never 09/27/2019 Average Number of Drinks Not on file 020 Frequency of Binge Drinking Not on file 09/11 PHQ-2 Answer Date Recorded PHQ-2 Total Score 0 05/25/2025 [facility] of Occupat ional Health - Occupational Stress [...] Orientation Straight 10/06/2022 11 :35 PM EST Last Filed Vital Signs Vital Sign Reading Time Taken Comments Blood Pressure 140/80 06/09/2025 10:52 AM EDT Pulse 67 06/09/2025 10:52 AM EDT Temperature 36.4 C (97.5 F) 05/25/2025 3:19 PM EDT Respiratory Rate 16 12/06/2024 3:19 PM EDT Oxygen Saturation 98% 05/25/2025 3:19 PM EDT Inhaled Oxygen Concentration - - Weight 98.9 kg (218 lb) 05/25/2025 3:19 PM EDT Height 180.3 cm (5' 11 ) 05/25/2025 3:19 PM EDT Body Mass Index 30.4 05/25/2025 3:19 PM EDT Plan of Treatment Upcoming Encounters Date Type Department Care Team (Late st Contact Info) Description 07/12/2025 3:45 PM EST Follow Up [facility] [address] [place] [address] Srinath Stallings MD [address] [place] [phone] 08/22/2025 3:45 PM EST Initial consult [facility] General Surgery [facility] [address] [place] [address] Kimberlee Ace MD [address] [place] [phone] 09/05/2025 9:20 AM EST Follow Up [facility] Sleep [address] [address] Dayana Franz MD [address] [place] [phone] 09/14/2025 12:45 PM EST Office Visit [facility] Urology [address] [address] Capo Ellington MD [address] [place] [phone] 11/23/2025 4:00 PM EDT Follow Up [facility] Internal Medicine [facility] [address] [facility] [address] [place], [place] [address] Claudia Mcknight, [address] [place] [address] [address] [place] [phone] Health Maintenance Due Date Last Done Comments Pneumococcal Vaccine (50+ years) (1 of 1 - PCV) 2014 Shingles vaccine (Shingrix) (2 of 2 - Shingrix (RZV) 2 Dose Standard Series) 05/22/2022 03/22/2022 Covid-19 vaccine series ( - 2024- season) 2025 05/09/2023, 12/06/2020, 11/08/2020 PSA 05/18/2025 05/18/2024, 04/0 03/2023, 03/22/2022 Lipid disorder screening 04/16/2026 025, 05/18/2024, 11/16/2022, Additional history exists Prediabetes Surveillance 04/16/2026 025, 09/29/2024, 05/18/2024 Colon cancer screening, Colonoscopy 10/12/2026 10/12/2021, 03/08/2019, 03/08/2019 Tetanus adult (Td q 10,TDAP once) 02/01/2035 02/01/2025, 03/22/2022 RSV Immunization (1 - 1-dose 75+ series) 2039 HIV screening Completed 05/18/2024 Hepatitis C screening Completed 05/18/2024 Influenza vaccine Completed 05/25/2025, , 05/16/2023, Additional history exists Meningococcal B Vaccine Aged Out No l onger eligible based on patient's age to complete this topic Meningococcal Vaccine Aged Out No joseline ni eligible based on patient's age to complete this topic Procedures Procedure Name Priority Date/Time Associated Diagnosis Comments COMPREHENSIVE METABOLIC PANEL Routine 04/16/2025 9:31 AM EDT Hypokalemia CBC AND DIFFERENTIAL Routine 04/16/2025 9:31 AM EDT Hypokalemia URINALYSIS WITH CULTURE REFLEX Routine 04/16/2025 9:31 AM EDT Hypokalemia LIPID PANEL WITH REFLEX TO DIRECT LDL (Q) Routine 04/16/2025 9:31 AM EDT Hypokalemia TSH W/REFLEX TO FT4 ([facility] GH LMW Q YH) Routine 04/16/2025 9:31 AM EDT Hypokalemia HEMOGLOBIN A1C Routine 04/16/2025 9:31 AM EDT Hypokalemia LAB SCAN 03/22/2025 12:00 AM EDT LAB SCAN 03/22/2025 12:00 AM EDT XRAY RESULT SCAN 03/22/2025 12:0 0 AM EDT HIV-1/HIV-2 ANTIBODY/ANTIGEN SCREEN W/REFLEX ([facility] LMW YH) Routine 05/18/2024 8:24 AM EDT Annual physical exam HEPATITIS C AB WITH REFLEX TO HCV PCR Routine 05/18/2024 8:24 AM EDT Annual physical exam PSA, TOTAL (SCREENING) ( GH L LMW YH) Routine 05/18/2024 8:24 AM EDT Annual physical exam HM COLONOSCOPY 10/12/2021 12:00 AM EST from Last 3 Months or Most Recently Relevant to Health Maintenance Results * (ABNORMAL) Urinalysis with culture reflex (04/16/2025 9:31 AM EDT) Color YELLOW YELLOW [facility] Appearance CLEAR CLEAR [facility] Specific [place], UA 1.020 1.001 - 1.035 [facility] pH 8.0 5.0 - 8.0 [facility] Glucose, UA NEGATIVE NEGATIVE [facility] Bilirubin NEGATIVE NEGATIVE [facility] Ketones, UA NEGATIVE NEGATIVE [facility] Occult Blood NEGATIVE NEGATIVE [facility] Protein, UA 1+(A) NEGATIVE [facility] Nitrite, UA NEGATIVE NEGATIVE [facility] Leukocyte Esterase TRACE(A) NEGATIVE [facility] WBC NONE SEEN < OR = 5 /HPF [facility] RBC NONE SEEN < OR = 2 /HPF [facility] Epithelial Cells, Squamous NONE SEEN < OR = 5 /HPF [facility] Bacteria FEW(A) NONE SEEN /HPF [facility] Hyaline Casts, UA NONE SEEN NONE SEEN /LPF [facility] Comments [facility] Comment:Spermatozoa present Note: [facility] Comment: This urine was analyzed for the presence of WBC, RBC, bacteria, casts, and other formed elements. Only those elements seen were reported. Reflexive Urine Culture [facility] Comment:CULTURE INDICATED - RESULTS TO FOLLOW Urine Culture, Routine SEE NOTE(A) [facility] Comment: CULTURE, URINE, ROUTINE Micro Number: [id number] Test Status: Final Specimen Source: Urine Specimen Quality: Adequate Result: 10,000-49,000 CFU/mL of Enterococcus faecalis E.faecalis INT CAROLINE AMPICILLIN S <=2 NITROFURANTOIN S <=16 VANCOMYCIN S 1 S = Susceptible I = Intermediate R = Resistant NS = Not susceptible SDD = Susceptible Dose Dependent * = Not Tested NR = Not Reported NN = See Therapy Comments Urine 04/16/2025 9:31 AM EDT 04/16/2025 9:32 AM EDT Narrative [facility] - 04/20/2025 9:24 AM EDT FASTING:YES FASTING: YES Resulting Agency Comment Performing Lab: Site ID: [id number] Name: [facility] Address: [address] [place] [phone] Director: Shruthi Kenyon M.D. Claudia Aragonsil DO URINE ORDERABLES Fi nal Result [facility] [address] * Lipid panel with reflex to direct LDL (Q) (04/16/2025 9:31 AM EDT) Pathologist [facility] Cholesterol, Total 196 <200 mg/dL [facility] HDL 83 > OR = 40 mg/dL [facility] Triglycerides 68 <150 mg/dL [facility] LDL Cholesterol 98 mg/dL (calc) [facility] Comment: Reference range: <100 Desirable range <100 mg/dL for primary prevention; <70 mg/dL for patients with CHD or diabetic patients with > or = 2 CHD risk factors. LDL-C is now calculated using the Ezra-Dave calculation, which is a validated novel method providing better accuracy than the Friedewald equation in the estimation of LDL-C. Ezra CARVALHO et al. YULIANA. 2013;310(19): 6690-5483 (http://education.ImmunoGen.Probiodrug/faq/RBT963) Chol/HDL Ratio 2.4 <5.0 (calc) [facility] Non-HDL Cholesterol 113 <130 mg/dL (calc) [facility] Comment: For patients with diabetes plus 1 major ASCVD risk factor, treating to a non-HDL-C goal of <100 mg/dL (LDL-C of <70 mg/dL) is considered a therapeutic option. Blood 04/16/2025 9:31 AM EDT 04/16/2025 9:32 AM EDT Narrative [facility] - 04/20/2025 9:24 AM EDT FASTING:YES FASTING: YES Resulting Agency Comment Performing Lab: Site ID: [id number] Name: [facility] Address: [address] [place] [phone] Director: Shruthi Kenyon M.D. [email or web address] DO LAB BLOOD ORDERABLE S Final Result Performing Organization Address [facility] de Phone Number [facility] [address] [place] [address] * TSH w/reflex to FT4 (BH GH LMW Q YH) (04/16/2025 9:31 AM EDT) TSH, 3rd Generation w/ Reflex to FT4 0.95 0.40 - 4.50 mIU/L [facility] Blood 04/16/2025 9:31 AM EDT 04/16/2025 9:32 AM EDT Narrative [facility] - 04/20/2025 9:24 AM EDT FASTING:YES FASTING: YES Resulting Agency Comment Performing Lab: Site ID: [id number] Name: [facility] Address: [address] [place] [phone] Director: Shruthi Kenyon M.D. [facility] [employer] DO LAB BLOOD ORDERABLE S Final Result Performing Organization Address [facility] Phone Number [facility] [address] [place] [address] * (ABNORMAL) CBC and differential (04/16/2025 9:31 AM EDT) WBC 7.3 3.8 - 10.8 Thousand/u L [facility] RBC 5.01 4.20 - 5.80 Million/uL [facility] Hemoglobin 13.4 13.2 - 17.1 g/dL [facility] Hematocrit 42.3 38.5 - 50.0 % [facility] MCV 84.4 80.0 - 100.0 fL [facility] MCH 26.7(L) 27.0 - 33.0 pg [facility] MCHC 31.7(L) 32.0 - 36.0 g/dL [facility] Comment: For adults, a slight decrease in the calculated MCHC value (in the range of 30 to 32 g/dL) is most likely not clinically significant; however, it should be interpreted with caution in correlation with other red cell parameters and the patient's clinical condition. RDW 14.2 11.0 - 15.0 % [facility] Platelets 212 140 - 400 Thousand/u L [facility] MPV 11.8 7.5 - 12.5 fL [facility] Neutrophils Absolute 4,497 1,500 - 7,800 cells/uL [facility] Lymphocytes Absolute 2,132 850 - 3,900 cells/uL [facility] Monocytes Absolute 562 200 - 950 cells/uL [facility] Eosinophils Absolute 58 15 - 500 cells/uL [facility] Basophils Absolute 51 0 - 200 cells/uL [facility] Neutrophils 61.6 % [facility] Lymphocytes 29.2 % [facility] Monocytes 7.7 % [facility] Eosinophils 0.8 % [facility] Basophils 0.7 % [facility] Blood 04/16/2025 9:31 AM EDT 04/16/2025 9:32 AM EDT Narrative [facility] - 04/20/2025 9:24 AM EDT FASTING:YES FASTING: YES Resulting Agency Comment Performing Lab: Site ID: [id number] Name: [facility] Address: [address] [place] [phone] Director: Shruthi Kenyon M.D. Claudia Mcknight DO LAB BLOOD ORDERABLE S Final Result Performing Organization Address City/State/[facility] Co de Phone Number [facility] [address] [place] [address] * (ABNORMAL) Hemoglobin A1c (04/16/2025 9:31 AM EDT) Hemoglobin A1c 5.8(H) <5.7 % [facility] Comment: For someone without known diabetes, a hemoglobin A1c value between 5.7% and 6.4% is consistent with prediabetes and should be confirmed with a follow-up test. For someone with known diabetes, a value <7% indicates that their diabetes is well controlled. A1c targets should be individualized based on duration of diabetes, age, comorbid conditions, and other considerations. This assay result is consistent with an increased risk of diabetes. Currently, no consensus exists regarding use of hemoglobin A1c for diagnosis of diabetes for children. Blood 04/16/2025 9:31 AM EDT 04/16/2025 9:32 AM EDT Narrative [facility] - 04/20/2025 9:24 AM EDT FASTING:YES FASTING: YES Resulting Agency Comment Performing Lab: Site ID: [id number] Name: [facility] Address: [address] [place] [phone] Director: Shruthi Kenyon M.D. Claudia Mcknight DO LAB BLOOD ORDERABLE S Final Result [facility] [address] [place] [address] * (ABNORMAL) Comprehensive metabolic panel (04/16/2025 9:31 AM EDT) [facility] Glucose 88 65 - 99 mg/dL [facility] Comment: Fasting reference interval BUN 15 7 - 25 mg/dL [facility] Creatinine 0.99 0.70 - 1.35 mg/dL [facility] eGFR (Creatinine) 87 > OR = 60 mL/min/1. 73m2 [facility] BUN/Creatinine Ratio SEE NOTE: 6 - 22 (calc) [facility] Comment: Not Reported: BUN and Creatinine are within reference range. Sodium 142 135 - 146 mmol/L [facility] Potassium 3.5 3.5 - 5.3 mmol/L [facility] Chloride 102 98 - 110 mmol/L [facility] CO2 33(H) 20 - 32 mmol/L [facility] Calcium 9.3 8.6 - 10.3 mg/dL [facility] Protein, Total 7.2 6.1 - 8.1 g/dL [facility] Albumin 4.7 3.6 - 5.1 g/dL [facility] Globulin 2.5 1.9 - 3.7 g/dL (calc) [facility] Albumin/Globulin Ratio 1.9 1.0 - 2.5 (calc) [facility] Bilirubin, Total 0.6 0.2 - 1.2 mg/dL [facility] Alkaline Phosphatase 67 35 - 144 U/L [facility] AST 14 10 - 35 U/L [facility] ALT 16 9 - 46 U/L [facility] Blood 04/16/2025 9:31 AM EDT 04/16/2025 9:32 AM EDT Narrative [facility] - 04/20/2025 9:24 AM EDT FASTING:YES FASTING: YES Resulting Agency Comment Performing Lab: Site ID: [id number] Name: [facility] Address: [address] [place] [phone] Director: Shruthi Kenyon M.D. us Claudia Alvarez [employer] DO LAB BLOOD ORDERABLE S Final Result [facility] [address] [place] [address] * Xray Result Scan (03/22/2025 12:00 AM EDT) us Provider Not In System IMG SCAN REPORTS Final Re sult * Lab Scan (03/22/2025 12:00 AM EDT) Only the most recent of2 resultswithin the time period is included. us Provider Not In System LAB BLOOD ORDERABLES Sarita l Result * HIV-1/HIV-2 antibody/antigen screen w/reflex ( GH LMW YH) (05/18/2024 8:24 AM EDT) [facility] Signature HIV 1 and 2 Antibody/Antigen Screen Non-Reac tive Non-Reac tive 05/18/2024 1:29 PM EDT [facility] Comment:Interpretation: This specimen is HIV antibody and antigen non-reactive. A negative test does not exclude the possibility of infection with HIV. If suspicion is high, submit a sample for HIV nucleic acid testing. Negative results may be seen in early infection, advanced AIDS and agammaglobulinemic patients, among others. Antiretroviral drugs taken for treatment and prophylaxis may limit the ability of diagnostic tests to detect HIV infection. The performance of this assay has not been clinically validated in patients less than 2 years old. Blood Venipuncture / Unknown 05/18/2024 8:24 AM EDT 05/18/2024 8:24 AM EDT [facility] DO LAB BLOOD ORDERABLE S Final Result Performing Organization Address [facility] de Phone Number [address] [phone] * Hepatitis C Ab with reflex to HCV PCR (05/18/2024 8:24 AM EDT) Pathologist [facility] [place] Hepatitis C Ab Initial Result 0.07 S/CO 05/18/2024 12:08 PM EDT [facility] Hepatitis C Ab Interpretation Non-React patty Non-React patty 05/18/2024 12:08 PM EDT [facility] Blood Venipuncture / Unknown 05/18/2024 8:24 AM EDT 05/18/2024 8:24 AM EDT [facility] DO LAB BLOOD ORDERABLE S Final Result Performing Organization Address [facility] de Phone Number [address] [phone] * PSA, total (screening) (BH GH L LMW YH) (05/18/2024 8:24 AM EDT) [facility] Prostate Specific Antigen, Screening 0.661 <=4.000 ng/mL 05/18/2024 1:52 PM EDT [facility] Comment: This assay is performed on the [employer] platform using WHO standards. A total PSA value of 4ng/mL may not be an appropriate actionable threshold in all clinical situations. For healthcare providers, see institutional care pathway via Epic Tools > Integrated Care Models > Abnormal Prostate http://webhs.ycoh.org/uploads/abnormal%20Prostate%20stewardship%20ICM%20algorith m.pdf The results cannot be interpreted as absolute evidence of the presence or absence of malignant disease. The values obtained from a different assay method or kits cannot be used interchangeably. This test was performed on the Delicia [id number] manufactured by [employer] using an ElectroChemiLuminescence immunoassay. Blood Venipuncture / Unknown 05/18/2024 8:24 AM EDT 05/18/2024 8:24 AM EDT Claudia Mcknight DO LAB BLOOD ORDERABLE S Final Result [address] [place] [address], [facility] [phone] * HM COLONOSCOPY (10/12/2021 12:00 AM EST) Provider Not In System HEALTH MAINTENANCE Final Result from Last 3 Months or Most Recently Relevant to Health Maintenance Insurance BS BCBS BCBS Advance Directives * Full ACLS (Latest Code Status on File) Date Activated Date Inactivated Comments 03/13/2021 12:52 PM 03/15/2021 6:43 PM Question Answer Comments With Whom was the Code Status Discussed? Patient Care Teams Instrument Assembler Relationship Specialty Start Date End Date Claudia Mcknight DO [address] [facility] [address] [place] [id number] PCP - General Family Medicine 05/18/24
--- OUTSIDE RECORDS SUMMARY | 2025-06-16 18:48 | XMS_ITS | Clinical Summary ---
Author Organization [employer] Address [address] [facility] 7[address] [place] [address] Care Team Providers Care Weaver Hand Name Role Phone Unavailable Primary Care Provider Unavailabl e Social History Tobacco Use Types Packs/Day Years Used Date Smoking Tobacco: Never Assessed Sex and Gender Information Value Date Recorded Sex Assigned at Male 03/14/2023 3:06 PM EDT Legal Sex Male 2:12 PM EDT Gender Identity Male 03/14/2023 3:06 PM EDT Sexual Orientation Don't know 03/14/2023 3: 06 PM EDT Plan of Treatment Health Maintenance Due Date Last Done Comments CT Colonography 1964 Colonoscopy 1964 Colorectal Cancer Screening 1964 Depression Screening 1964 FIT DNA/Cologuard 1964 FIT 1964 FOBT 1964 HIV Screening 1964 Lipid Panel 1964 SDOH Screening 1964 Sigmoidoscopy 1964 Disability Screening 1964 Alcohol/Substance Use Screening 1976 Tobacco Screening 1976 Hepatitis C Screening 1982 DTaP/Tdap/Td Vaccines (1 - Tdap) 1983 Pneumococcal Vaccine: 50+ Ye ars (1 of 1 - PCV) 2014 Zoster Vaccines (1 of 2) 2014 COVID-19 Vaccine ( - 2023-2 5 season) 2025 Influenza Vaccine (#1) 2025 RSV Patients and Pa tients Aged 60 years or older (1 - 1-dose 75+ series) 2039 HIB Vaccines Aged Out No longer eligi ble based on patient's age to complete this topic HPV Vaccines Aged Out No longer eligi ble based on patient's age to complete this topic Hepatitis A Vaccines Aged Out No long er eligible based on patient's age to complete this topic Hepatitis B Vaccines Aged Out No long er eligible based on patient's age to complete this topic IPV Vaccines Aged Out No longer eligi ble based on patient's age to complete this topic Meningococcal B Vaccine Aged Out No l onger eligible based on patient's age to complete this topic Meningococcal Vaccine Aged Out No joseline ni eligible based on patient's age to complete this topic RSV under 20 months Aged Out No longe r eligible based on patient's age to complete this topic Rotavirus Vaccines Aged Out No longer eligible based on patient's age to complete this topic [place] [address] [place] [address]
--- OUTSIDE RECORDS SUMMARY | 2025-06-16 18:48 | XMS_ITS | Encounter Summary ---
Author Organization [facility] Address [address] [place] [address] Care Team Providers Care Manager Architectural Name Role Phone Yasir Winter MD Unavailable [phone] Claudia Otto DO Unavailable [phone] AntonioClaudia Ozuna DO Primary Care Provi errol Encounter Details Date Type Department Care Team (Late st Contact Info) Description 06/09/2025 Scanned Document [facility] [address] [address] Frankie Alvarez MD [address] [place] [address] Social History Tobacco Use Types Packs/Day Years [...] on filedocumented in this encounter Care Teams Manager Architectural Relationship Specialty Start Date End Date Claudia Otot DO [address] [place] [address] PCP - General Family Medicine 06/15/24 Yasir Winter MD [facility] [address] [place] [address] Gastroenterology 01/22/21 Claudia Otto DO [address] [place] [address] Family Medicine 05/21/24 documented as of this encounter
--- OUTSIDE RECORDS SUMMARY | 2025-06-16 18:48 | XMS_ITS | Encounter Summary ---
Author Organization [facility] Address [address] [place] [address] Care Team Providers Care Piggery Worker Name Role Phone Yasir Winter MD Unavailable [phone] Claudia Otto DO Unavailable [phone] AntonioClaudia Ozuna DO Primary Care Provi errol Encounter Details Date Type Department Care Team (Late st Contact Info) Description 01/06/2025 Scanned Document [facility] [address] [place] [phone] Gastroenterology, Scan Social History Tobacco Use Types [...] PT STG 1 Physical Therapy No Melody Watkins PT Note: Patient will decrease knee pain [...] on filedocumented in this encounter Care Teams Piggery Worker Relationship Specialty Start Date End Date Claudia Otto DO [address] [place] [address] PCP - General Family Medicine 06/15/24 Yasir Winter MD [facility] [address] [place] [address] Gastroenterology 01/22/21 Claudia Otto DO [address] [place] [address] Family Medicine 05/21/24 documented as of this encounter
--- OUTSIDE RECORDS SUMMARY | 2025-06-16 18:48 | XMS_ITS | Clinical Summary ---
Author Organization [facility] Address [address] [place] [address] Care Team Providers Care Egg Grader Name Role Phone Yasir Winter MD Unavailable [phone] Claudia Otto DO Unavailable [phone] Claudia Otto DO Primary Care Provi errol Allergies No known active allergies Medications psyllium (METAMUCIL) 0.52 g capsule Take 0.52 g by mouth daily. Active dutasteride (AVODART) 0.5 MG capsule Take 0.5 mg by mouth daily. Active atorvastatin (LIPITOR) 20 MG tablet Take 20 mg by mouth daily. Active amLODIPine (NORVASC) 5 MG tablet Take 5 mg by mouth daily. 2 Active lisinopril (PRINIVIL,ZeSTRIL) 10 MG tablet Take 40 mg by mouth daily. 2 Active olmesartan-amLODIPine -HCTZ 40-5-12.5 MG Tab Take 1 tablet by mouth daily. 4 Active sucralfate (CARAFATE) 1 GM/10ML suspension Take 1 g by mouth. 4 Active mometasone (NASONEX) 50 MCG/ACT nasal spray 2 sprays into each nostril daily. 4 Active PANTOprazole (PROTONIX) 40 MG EC tablet Take 40 mg by mouth. 4 Active meloxicam (MOBIC) 15 MG tabletIndications:Ist hmic spondylolisthesis Take 1 tablet (15 mg total) by mouth daily. 15 tablet 5 Active Active Problems Problem Noted Date Diagnosed Date Gastroesophageal reflux disease 06/03/2024 Assessment & Plan (06/03/2024 5:19 PM EDT): He did complain of some heartburn, however, with the pantoprazole his heartburn is better. Personal history of colonic polyps 10/01/2021 Assessment & Plan (10/01/2021 6:30 PM EST): He did have adenomatous colon polyps about 3 years ago. However, he continues to have intermittent abdominal discomfort. We will proceed with a surveillance colonoscopy. Esophageal dysphagia 10/01/2021 Assessment & Plan (06/03/2024 5:19 PM EDT): He had complained of dysphagia to solid food in the past. However, symptoms are better under about 6 to 8 weeks ago when he is having frequent episodes of food getting stuck especially solid foods. 2 At this time I will proceed with an upper endoscopy and possible dilatation Assessment & Plan (07/01/2022 5:15 PM EST): He occasionally gets difficulty swallowing. He chews his food well and mostly symptoms are under good control Assessment & Plan (10/01/2021 6:31 PM EST): He has been complaining of dysphagia to solid foods. And esophageal pathology needs to be ruled out. He had treatment with radiofrequency ablation. Possibility of any benign stricture needs to be evaluated Díaz's esophagus with high grade dysplasia Assessment & Plan (07/01/2022 5:16 PM EST): He had Díaz's esophagus with high-grade dysplasia. He had radiofrequency ablation. Endoscopy was done 2-1/2 years ago as well as last year which did not reveal any Díaz's. Continue with the pantoprazole every day. However, I advised him to stop taking sucralfate Assessment & Plan (10/01/2021 6:30 PM EST): He did have Díaz's esophagus with high-grade dysplasia. After radiofrequency ablation, most of the Díaz's epithelium had been treated. Last endoscopy did not reveal any residual Díaz's epithelium. However, needs a follow-up endoscopy. We will proceed with a endoscopy Assessment & Plan (03/19/2021 11:44 PM EDT): He already had radiofrequency ablation. He should be getting another surveillance endoscopy. Assessment & Plan (03/19/2021 8:44 AM EDT): He had Radiofrequency ablation for Díaz's esophagus. His upper endoscopy last year did not reveal any residual Díaz's epithelium. However, given history of high-grade dysplasia, he will need a surveillance endoscopy to follow-up on Díaz's epithelium. Generalized abdominal pain 03/19/2021 Assessment & Plan (03/19/2021 8:44 AM EDT): He is complaining of generalized abdominal pain, however, it is more pronounced in the upper abdomen. Will obtain ultrasound of abdomen to rule out any significant pathology Diverticulitis 03/19/2021 Assessment & Plan (03/19/2021 11:43 PM EDT): He appears to have another episode of acute diverticulitis. He has been started on Cipro and Flagyl when he was at the emergency room. However, I will treat him with antibiotics for at least 2 weeks. I will call in another 7 days of Cipro. Diarrhea 03/19/2021 Assessment & Plan (03/19/2021 11:44 PM EDT): He has complained of loose bowel movements. It is possible that loose bowel movement might be related to diverticulitis. However, infectious etiology needs to be ruled out. Since he has been on antibiotics, I would like to rule out C. difficile colitis. Encounters Date Type Department Care Team Description 06/09/2025 Scanned Document [address] [phone] Frankie Alvarez MD 05/19/2025 4:15 PM EDT Office Visit [address] [address] Frankie Alvarez MD Lumbar radiculopathy (Primary Dx); Isthmic spondylolisthesis 04/05/2025 4:00 PM EDT Procedure visit [address] [place] [address] Frankie Alvarez MD Lumbar spondylosis (Primary Dx) 04/05/2025 3:55 PM EDT Ancillary Procedure [address] [place] [address] 03/25/2025 Scanned Document [address] [place] [address] Frankie Alvarez MD 03/24/2025 4:00 PM EDT Office Visit [address] [place] [address] Frankie Alvarez MD Isthmic spondylolisthesis (Primary Dx) from Last 3 Months Family History Medical History Relation Name Comments Colon cancer Neg Hx Colon polyps Neg Hx Social History Tobacco Use Types Packs/Day Years Used Date Smoking Tobacco: Never Smokeless Tobacco: Never Tobacco Cessation:Counseling Given: Not Answered Alcohol Use Standard Drinks/Week Comments Never 0 (1 standard drink = 0.6 oz pur e alcohol) Sex and Gender Information Value Date Recorded Sex Assigned at Male 09/14/2023 2:11 PM EST Legal Sex Male 7:06 PM EST Gender Identity Male 09/14/2023 2:11 PM EST Sexual Orientation Heterosexual (straight) 09/14 2:11 PM EST Last Filed Vital Signs Vital Sign Reading Time Taken Comments Blood Pressure 146/84 06/15/2024 2:27 PM EST Pulse 67 06/15/2024 2:27 PM EST Temperature 36.4 C (97.5 F) 06/15/2024 2:27 PM EST Respiratory Rate 18 06/15/2024 2:27 PM EST Oxygen Saturation 98% 06/15/2024 2:27 PM EST Inhaled Oxygen Concentration - - Weight 108 kg (238 lb) 06/15/2024 2:27 PM EST Height 180.3 cm (5' 11 ) 06/15/2024 2:27 PM EST Body Mass Index 33.19 06/15/2024 2:27 PM EST Plan of Treatment Health Maintenance Due Date Last Done Comments Hepatitis C Virus Screening 1964 DTaP/Tdap/Td Vaccines (1 - Tdap) 1983 Pneumococcal Vaccines 50+ (1 of 1 - PCV) 2014 RSV Vaccine 50 years and older and Patients (1 - Risk 50-74 years 1-dose series) 2014 Zoster (Shingles) Vaccine (1 of 2) 2014 COVID-19 Vaccine ( - season) 2025 05/09/2023, 12/06/2020, 11/08/2020 Colonoscopy 10/12/2026 10/12/2021 HIV Screening Completed 05/18/2024 Influenza Vaccine Completed 05/25/2025, , 05/16/2023, Additional history exists Hepatitis B Vaccines Aged Out No long er eligible based on patient's age to complete this topic Goals Goal Patient Goal Type Associated Problems [...] HEP/ self-management of symptoms in 6 weeks. Procedures Procedure Name Priority Date/Time Associated Diagnosis Comments [place] NJX AA&/STRD TFRML EPI LUMBAR/SACRAL 1 LEVEL Routine 04/05/2025 4:00 PM EDT Lumbar spondylosis FL IMAGING GUIDANCE FOR NEEDLE PLACEMENT (CTOR) Routine 04/05/2025 3:50 PM EDT Lumbar spondylosis from Last 3 Months Results * [place] NJX AA&/STRD TFRML EPI LUMBAR/SACRAL 1 LEVEL (04/05/2025 4:00 PM EDT) Frankie Bird MD - 04/05/2025 4:00 PM EDT Frankie Alvarez MD 04/05/2025 4:31 PM Spine Injections (CC) Date/Time: 04/05/2025 4:00 PM Performed by: Frankie Alvarez MD Authorized by: Frankie Alvarez MD Level: Lumbar/Caudal Method/Approach: Transforaminal Number of Levels: 1 Imaging Guidance: fluoroscopy Laterality: Right Medications: 10 mg dexAMETHasone 10 mg/mL Outcome: Tolerated well, no immediate complications Procedure discussed: discussed risks, benefits, and alternatives Consent Given by: Patient Timeout: timeout called immediately prior to procedure Prep: patient was prepped and draped in usual sterile fashion Patient is alert and oriented x 3 and in no acute distress. They are well-dressed well-kempt and appropriate throughout the examination. Pulmonary examination shows normal air exchange without labored breathing or shortness of breath. Skin examination shows normal temperature and color in the area of exam. No lymphadenopathy in the area of exam Continues to have pain in the L4/5 distribution on the right. Patient confirmed they are not ill, not taking antibiotics, not taking anticoagulants, and have a ride home. The patient was informed regarding the risks, benefits, alternatives and prognosis of the procedure and written consent was obtained. Risks include, but are not limited to, epidural hematoma, infection, allergic reaction, headache, syncope, or respiratory or cardiac arrest. The patient was placed in prone position on the x-ray table, with a cushion to maintain flexed cervical posture. The skin was prepped and draped in the normal sterile fashion. [place] timeout procedure was performed. Sterile technique was used throughout the procedure. The x-ray technologist was instructed to operate the fluoroscope. The L4/5 transforaminal space on the right was identified, with appropriate adjustment of tilt and rotation for optimal visualization. The overlying skin and subcutaneous soft tissues were infiltrated with 1% lidocaine for local anesthesia. Under intermittent fluoroscopic guidance in adjusted AP view, a 22 gauge spinal needle was advanced On an oblique trajectory toward the desired foramen. Using oblique, lateral, and AP radiographs the needle was advanced trans foraminal lateral to medial. Aspiration was negative for blood and CSF. 1 ml Omnipaque contrast was injected under real-time fluoroscopy, demonstrating epidural flow without vascular or CSF uptake. AP and depth spot films were obtained. 10 mg preservative-free dexamethasone sodium phosphate with 0.3mL of 1% lidocaine were infiltrated. Radiographs were obtained and saved for documentation purposes. The needle was withdrawn and a Band-aid was applied to the skin puncture site. The patient tolerated the procedure well and was discharged after an appropriate period of observation. Frankie Alvarez MD PROCEDURE/MINOR SURGICAL ORDE RABMARIANA Final Result * Fl Guidance for Needle Placement (CTOR) (04/05/2025 3:50 PM EDT) Narrative CT ORTHO - 04/05/2025 3:50 PM EDT In-office procedure performed by [facility] provider. Please refer to encounter note and/or procedure note for documentation related to linked images. us Frankie Alvarez MD IMG FLUOROSCOPY ORDERABLES Fi nal Result CT ORTHO from Last 3 Months Insurance [facility] HMO Care Teams Egg Grader Relationship Specialty Start Date End Date Claudia Otto DO [address] [place] [address] PCP - General Family Medicine 06/15/24 Yasir Winter MD [facility] [address] [place] [address] Gastroenterology 01/22/21 Claudia Otto DO [address] [facility] [place] [address] Family Medicine 05/21/24
--- OUTSIDE RECORDS SUMMARY | 2025-06-16 18:48 | XMS_ITS | Encounter Summary ---
Author Organization [facility] Address [address] [place] [address] Care Team Providers Care Marriage Counselor Name Role Phone Yasir Winter MD Unavailable [phone] Claudia Otto DO Unavailable [phone] AntonioClaudia Ozuna DO Primary Care Provi errol Encounter Details Date Type Department Care Team (Late st Contact Info) Description 03/25/2025 Scanned Document [facility] [address] [phone] Frankie Alvarez MD [address] [place] [address] Social History Tobacco Use Types [...] on filedocumented in this encounter Care Teams Marriage Counselor Relationship Specialty Start Date End Date Claudia Otto DO [address] [place] [address] PCP - General Family Medicine 06/15/24 Yasir Winter MD [facility] [address] [place] [address] Gastroenterology 01/22/21 Claudia Otto DO [address] [place] [address] Family Medicine 05/21/24 documented as of this encounter
== END 2025-06-16 17:10 | disposition home or self-care (01) ==
LOC: HO.HMCH 16:27
PROVIDERS: PCP Internal Medicine; Visit Provider Internal Medicine
DX: I10 Essential (primary) hypertension (principal); N48.6 Induration penis plastica; Z23 Encounter for immunization

== ENCOUNTER → 2025-06-16 16:26 | Outpatient (BNVA) | payer BC, SELFPAY | PROVIDERS: PCP Internal Medicine; Visit Provider Internal Medicine | DX: Z23 Encounter for immunization (principal); I10 Essential (primary) hypertension; N48.6 Induration penis plastica | CPT/HCPCS: 90471; 90656 ==

== ENCOUNTER 2025-07-26 16:52 | Outpatient (AMB) | payer BC, SELFPAY ==
--- NOTE | 2025-07-26 17:02 | MHC.PC.OV ---
Vital Signs 07/26/25 17:03 Height 5 ft 9 in Weight 210 lb 4 oz BMI 31.0 BP 150/70 H Blood Pressure Location Lt brachial Position Sitting Respiration 16 Pulse 66 Pulse Source Pulse Oximeter Temp 97.1 F Temp Source Temporal Artery Scan Pulse Oximetry (%) 98 Oxygen Delivery Method Room Air Intake Visit Reasons: annual exam Mold Closer Helper Required: No Accompanied by: Self / Same As Patient Allergies No Known Allergies Allergy (Verified 07/26/25 17:35) Medication List - Last Reconciled 07/26/25 by Marzena Mallory MD atorvastatin 20 mg PO DAILY 90 days blood pressure monitor (Blood Pressure Kit) As directed carbamide peroxide 6.5% (Ear Drops (carbamide peroxide)) 5 drps otic (ear) left .prn ciclopirox 8% topical BEDTIME diclofenac sodium ER 100 mg PO DAILY doxazosin 2 mg PO BEDTIME dutasteride 0.5 mg PO DAILY 90 days lifitegrast 5% (Xiidra) drps ophthalmic (eye) mometasone 50 mcg/actuation 2 sprays intranasal DAILY uftlnnrwun-qzjyzgqgg-rbtbwepow 40-10-25 mg 1 tab PO DAILY pantoprazole 40 mg PO DAILY 90 days potassium chloride 20 mEq PO DAILY sucralfate (Carafate) 1 g PO BID sulindac 150 mg PO Q12H PRN tadalafil (Cialis) 20 mg PO DAILY PRN Tobacco use date assessed: 07/26/25 Dental Screening Dental Screen Date: 07/26/25 Did you have a dental visit in the last 12 months?: Yes Did you have a dental problem in the last 6 months where you did not have access to dental care?: No Was dental information given to patient?: Patient has dentist HPI HPI Comments History of Present Illness Details The patient is a 60 year old male presenting for his physical exam and management of multiple chronic conditions including sleep apnea, cardiac issues, and nerve-related problems, and to request referrals. He has a history of throat surgery, lipoma, and hemorrhoids. His current medications include atorvastatin 20 mg, doxazosin, dutasteride, Xiidra eye drops, niunahvibg-rpobecbmca-wetayflshxopvtyiiju, potassium, pantoprazole, Carafate, sulindac, and Cialis. He has no known drug allergies. His mother is alive with a history of diabetes and open-heart surgery. His father and had a history of open-heart surgery. The patient is a former smoker and drinks beer and hard liquor a few times a week. He reports concerns regarding sleep apnea, heart issues, and sciatic nerve pain. He has knee issues that cause difficulty when standing up, requiring him to support himself. He also feels a sensation in his sciatic nerve. He has received the flu shot for the current year. His tetanus vaccine is up to date, with the last one in 2022 and the next due in 2032. He has not had a colonoscopy or had one over 10 years ago. [facility] Medical History Diverticulosis of colon Physical exam Allergic rhinitis Left knee pain Ingrown toenail Hand numbness Precordial chest pain Mild recurrent major depression Diverticulosis BPH (benign prostatic hyperplasia) Class 1 obesity with body mass index (BMI) of 31.0 to 31.9 in adult Chronic GERD Dyslipidemia Essential hypertension Surgical History History of throat surgery History of lipoma History of hemorrhoids Family History Mother Diabetes History of open heart surgery Father History of open heart surgery Family/Other Mental health disorder Social History Housing: House Alcohol intake: current Alcohol intake frequency: a few times a week Alcohol type: beer and hard liquor Patient Tobacco Use Status: Former Tobacco user Tobacco use type: Cigarette e-Cigarette/Vaping Use: Never Used Second Hand Smoke Exposure: No Substance Use Type: Marijuana service: No Current occupational status: employed Current occupational exposures/hazards: No Cognitive needs: No Hearing needs: No Vision needs: Yes Questionnaire PHQ-9 Over the last 2 weeks, how often have you been bothered by any of the following problems? 1. Little interest or pleasure in doing things: not at all 2. Feeling down, depressed, or hopeless: not at all 3. Trouble falling or staying asleep, or sleeping too much: not at all 4. Feeling tired or having little energy: not at all 5. Poor appetite or overeating: not at all 6. Feeling bad about yourself - or that you are a failure or have let yourself or your family down: not at all 7. Trouble concentrating on things, such as reading the newspaper or watching television: not at all 8. Moving or speaking so slowly that other people could have noticed. Or the opposite - being so fidgety or restless that you have been moving around a lot more than usual: not at all 9. Thoughts that you would be better off or of hurting yourself in some way: not at all Total score: 0 Depression Screening Interpretation: Negative Depression Screening Done: Yes 21043 - PHQ-9 Billing: Yes Source: Developed by Drs. Juan Antonio Patton, Rosalinda Dumont, Kendrick Mercer and colleagues, with an educational maite from [employer] Thrive Questionnaire Date Thrive assessed: 07/26/25 I am a: Patient What is your living situation today?: I have a steady place to live Within the past 12 months, did the food you bought not last and you didn't have the money to get more?: I choose not to answer this question Within the past 12 months, did you worry whether your food would run out before you got money to buy more?: I choose not to answer this question Do you have trouble paying for medicines?: Yes Do you have trouble getting transportation to medical appointments?: No Do you have trouble paying your heating and electricity bill?: No Do you have trouble taking care of your child, family member or friend?: No Do you have trouble with day-to-day activities such as bathing, preparing meals, shopping, managing finances, etc.?: No Are you currently unemployed and looking for a job?: I choose not to answer this question Are you interested in more education?: I choose not to answer this question THRIVE Score: 0 AUDIT C Alcohol Use Questionnaire (AUDIT-C) 1. How often do you have a drink containing alcohol?: Monthly or less 2. How many drinks containing alcohol do you have on a typical day when you are drinking?: 3 or 4 3. How often do you have six or more drinks on one occasion?: Less than monthly Total Score: 3 ROSA-7 AMB Questionnaire ROSA-7 Date ROSA - 7 assessed: 01/01/23 Feeling nervous, anxious, or on edge: 1 = Several days Not being able to stop or control worryin = Several days Worrying too much about different things: 1 = Several days Trouble relaxin = Several days Being so restless that it is hard to sit still: 1 = Several days Becoming easily annoyed or irritable: 1 = Several days Feeling afraid as if something awful might happen: 2 = More than half the days Total ROSA-7 score (0-4 normal; 5-9 mild; 10-14 moderate; 15-21 severe): 8 Source: Developed by Drs. Juan Antonio Patton, Rosalinda Dumont, Kendrick Mercer and colleagues, with an educational maite from [employer]. ROSA-7 Assessment Billing ROSA-7 Assessment Tool: ROSA-7 Assessment 58126 Review of Systems Const All systems reviewed & are unremarkable except as noted in HPI and below Card Denies chest pain at rest, Denies chest pain with activity, Denies edema, Denies irregular heart rhythm, Denies claudication, Denies dyspnea, Denies dyspnea on exertion, Denies orthopnea, Denies paroxysmal nocturnal dyspnea and Denies slow heart rate Resp Denies cough, Denies dyspnea and Denies dyspnea on exertion GI Denies abdominal pain, Denies change in bowel habits, Denies excessive flatus, Denies nausea and Denies vomiting Physical exam (Primary Care) Vital Signs: Last Vital Signs Temp 97.1 F 07/26/25 17:03 Pulse 66 07/26/25 17:03 Resp 16 07/26/25 17:03 BP 150/70 H 07/26/25 17:03 Pulse Ox 98 07/26/25 17:03 Oxygen Delivery Method Room Air 07/26/25 17:03 BMI result Body Mass Index 31.0 BMI Assessment/Plan discussion: High BMI High, discussed plan: lifestyle, weight reduction, dietary and physical activity Tobacco/Smoking Status: Tobacco use Status Tobacco use date assessed 07/26/25 07/26/25 17:18 Patient Tobacco Use Status Former Tobacco user 07/26/25 17:18 Tobacco use type Cigarette 07/26/25 17:18 e-Cigarette/Vaping Use Never Used 07/26/25 17:18 PHQ-9: PHQ-9 Score PHQ-9: Total score 0 07/26/25 17:40 Depression Screening Interpretation: Negative Thrive Assessment: Date of Thrive Assessment Date Thrive assessed 07/26/25 07/26/25 17:18 HENMT Head: Yes normal to inspection, Yes normocephalic and Yes atraumatic Ears: external ears normal Eyes General: appearance normal, both eyes and all related structures Eyelids: Yes eyelids normal Conjunctivae: conjunctivae normal Neck Neck: Yes normal visual inspection and Yes supple Resp Effort & Inspection: normal respiratory effort Auscultation: clear to auscultation bilaterally Cardio Jugular venous distension: no JVD Rate: regular rate Rhythm: regular rhythm Heart sounds: S1 normal heart sound present and S2 normal heart sound present GI Inspection: Yes normal to inspection Palpation (GI): Soft to palpation and nontender Auscultation: normal bowel sounds Skin General skin exam: no rashes or lesions noted Neuro General: no focal motor deficits Extrem General: Yes full ROM Psych Appearance: grossly normal Coding Level of Care Code Est Pt Level 4 (13847) Est Pt Prev Care 40-64y(49392) Diagnoses Physical exam Z00.00 Allergic rhinitis J30.9 Mild recurrent major depression F33.0 Right sciatic nerve pain M54.31 Right knee pain M25.561 Left knee pain M25.562 Additional Codes ROSA-7 Assessment Billing - ROSA-7 Assessment Tool: ROSA-7 Assessment 83984 ([id number]) PHQ-9 - 84268 - PHQ-9 Billing: Yes ([id number]) Time Spent (min) 38 Assessment & Plan Assessment & Plan (1) Physical exam: Code(s): Z00.00 - Encounter for general adult medical examination without abnormal findings Category: Medical (2) Allergic rhinitis: Code(s): J30.9 - Allergic rhinitis, unspecified Category: Medical (3) Mild recurrent major depression: Code(s): F33.0 - Major depressive disorder, recurrent, mild Category: Medical (4) Right sciatic nerve pain: Code(s): M54.31 - Sciatica, right side Category: Medical (5) Right knee pain: Code(s): M25.561 - Pain in right knee Category: Medical (6) Left knee pain: Code(s): M25.562 - Pain in left knee Category: Medical Plan Plan 1. Physical exam Repeat in a year. 2. Back Pain A referral will be made to a back specialist for his symptoms. 3. Knee Pain A referral to an orthopedist will be placed for evaluation of his knee problems. 4. Cardiac Concerns A referral to a emergency services dispatcher will be provided. 5. Allergies A referral will be made for his allergies, and medication will be prescribed. Orders: Orders Lipid Panel Today E78.5 - Hyperlipidemia, unspecified Comprehensive [place]. Panel Fast Today I10 - Essential (primary) hypertension Referrals Orthopedics Referral M25.561 - Pain in right knee, M25.562 - Pain in left knee Pain Management Referral M54.31 - Sciatica, right side Cardiology Referral I10 - Essential (primary) hypertension Open Access Screening Colonoscopy Referral Z12.12 - Encounter for screening for malignant neoplasm of rectum Medications: New cetirizine (All Day Allergy (cetirizine)) 10 mg PO DAILY PRN 90 tabs 0RF allergy symptoms 90 days
[2025-07-26 17:03] VITALS: BP 150/70; PULSE 66; RESP 16; TEMP 36.2; O2SAT 98; BMI 31.0
--- OUTSIDE RECORDS SUMMARY | 2025-07-26 20:17 | XMS_ITS | Encounter Summary ---
Author Organization [facility] ou and Home Health Address [address] [place] [address] Care Team Providers Care Sustainable Design Coordinator Name Role Phone Claudia Mcknight DO Primary Care Provi errol Reason for Visit * Reason Onset Date Comments Advice Only 07/21/2024 Encounter Details Date Type Department Care Team (Late st Contact Info) Description 07/21/2024 Telephone [facility] Cardiology [facility] [address] [facility] [address] [place], [place] [address] Srinath Stallings MD [address] [place] [address] Advice Only Social History Tobacco Use Types Packs/Day Years Used Date Smoking Tobacco: Never Smokeless Tobacco: Never Comments:quit 16 yrs ago to [place], 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 Enjoys going to Rastafarian, working around the house Alcohol Use Standard Drinks/Week Comments Not Currently 0 (1 standard drink = 0.6 oz pur e alcohol) Humiliation, Afraid, Rape, and Kick questionnair e Answer Date Recorded Fear of Current or Ex-Partner Patient declined 0 03/08/2019 Emotionally Abused Patient declined 03/08/2019 Physically Abused Patient declined 03/08/2019 Sexually Abused Patient declined 03/08/2019 Social Connection and Isolation Panel Answer Date Recorded Frequency of Communication with Friends and Fami ly Patient declined 03/08/2019 Frequency of Social Gatherings with Friends and Family Patient declined 03/08/2019 Attends Spiritism Services Patient declined 02/09 Active Member of Clubs or Organizations Patient declined 03/08/2019 Attends Club or Organization Meetings Patient de clined 03/08/2019 Marital Status Patient declined 03/08/2019 AUDIT-C Answer Date Recorded Frequency of Alcohol Consumption Never 09/27/2019 Average Number of Drinks Not on file 020 Frequency of Binge Drinking Not on file 09/11 PHQ-2 Answer Date Recorded PHQ-2 Total Score 0 06/25/2024 [facility] of Occupat ional Health - Occupational [...] Care Team (Late st Contact Info) Description 08/17/2025 11:30 AM EST Follow Up [facility] Cardiology [facility] [address] [facility] [address] [place], [place] [address] Srinath Stallings MD [address] [facility] [place] [phone] 08/22/2025 3:45 PM EST Initial consult [facility] General Surgery [facility] [address] [place] [address] Kimberlee Ace MD [address] [place] [phone] 09/05/2025 9:20 AM EST Follow Up [facility] Sleep [address] [address] Dayana Franz MD [address] [place] [phone] 09/14/2025 12:45 PM EST Office Visit [facility] Urology [address] [address] Capo Ellington MD [address] [place] [phone] 11/23/2025 4:00 PM EDT Follow Up [facility] Internal Medicine [facility] [address] [facility] [address] [place], [place] [address] Claudia Mcknight DO [address] [place] [address] [address] [place] [phone] documented as of this encounter Visit Diagnoses Not on filedocumented in this encounter Additional Health Concerns Assessment Noted Time PHQ-9 Depression Total Score: 0 05/18/20 24 7:23 AM EDT documented as of this encounter Care Teams Sustainable Design Coordinator Relationship Specialty Start Date End Date Claudia Mcknight DO [address] [place] [address] [address] [place] [phone] PCP - General Family Medicine 05/18/24 documented as of this encounter
--- OUTSIDE RECORDS SUMMARY | 2025-07-26 20:17 | XMS_ITS | Encounter Summary ---
Author Organization [facility] ou and Home Health Address [address] [place] [address] Care Team Providers Care Channeling Machine Runner Name Role Phone Claudia Mcknight DO Primary Care Provi errol Reason for Visit * Reason Onset Date Comments Medication Refill 08/18/2024 Encounter Details Date Type Department Care Team (Late st Contact Info) Description 08/18/2024 Refill [facility] Internal Medicine [facility] 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 Enjoys going to Yarsanism, working around the house Alcohol Use Standard [...] Friends and Family Patient declined 03/08/2019 Attends Quaker Services Patient declined 02/09 Active Member of Clubs or Organizations Patient declined 03/08/2019 Attends Club or Organization Meetings Patient de clined 03/08/2019 Marital Status Patient declined 03/08/2019 AUDIT-C Answer Date Recorded Frequency of Alcohol Consumption Never 09/27/2019 Average Number of Drinks Not on file 020 Frequency of Binge Drinking Not on file 09/11 PHQ-2 Answer Date Recorded PHQ-2 Total Score 0 06/25/2024 [facility] of Occupat ional Health - Occupational [...] Description 08/17/2025 11:30 AM EST Follow Up [facility] Cardiology [facility] [address] [facility] [address] [place] [address] Srinath Stallings MD [address] [facility] [address] [place] [phone] 08/22/2025 3:45 PM EST Initial consult [facility] General Surgery [facility] [address] [place] [address] Kimberlee Ace MD [address] [place] [phone] 09/05/2025 9:20 AM EST Follow Up [facility] Sleep [facility] [address] [place], [place] [address] Dayana Franz MD [address] [place] [phone] 09/14/2025 12:45 PM EST Office Visit [facility] [address] [place] [address] Capo Ellington MD [address] [place] [phone] 11/23/2025 4:00 PM EDT Follow Up [facility] Internal Medicine [facility] [address] [facility] [address] [place], [place] [address] Claudia Mcknight DO [address] [place] [address] [address] [place] [phone] documented as of this encounter Visit Diagnoses Diagnosis Esophageal dysphagia Dysphagia, pharyngoesophageal phase Díaz's esophagus with dysplasia Díaz's esophagus Gastroesophageal reflux disease with esophagitis without hemorrhage documented in this encounter Additional Health Concerns Assessment Noted Time PHQ-9 Depression Total Score: 0 05/18/20 24 7:23 AM EDT documented as of this encounter Care Teams Channeling Machine Runner Relationship Specialty Start Date End Date Claudia Mcknight DO [address] [place] [address] [address] [place] [phone] PCP - General Family Medicine 05/18/24 documented as of this encounter
--- OUTSIDE RECORDS SUMMARY | 2025-07-26 20:17 | XMS_ITS | Encounter Summary ---
Author Organization [facility] ou and Home Health Address [address] [place] [address] Care Team Providers Care Grounds Foreman Name Role Phone Claudia Mcknight DO Primary Care Provi errol Reason for Visit * Reason Comments Medication Refill Encounter Details Date Type Department Care Team (Late st Contact Info) Description 04/14/2022 Refill [facility] Internal Medicine [facility]. [address] [facility] [address] [place], [place] [phone] Manjit Bryant MD [address] [place] [address] [address] [place] [address] Medication Refill Social History Tobacco [...] Friends and Family Patient declined 03/08/2019 Attends Sikhism Services Patient declined 02/09 Active Member of Clubs or Organizations Patient declined 03/08/2019 Attends Club or Organization Meetings Patient de clined 03/08/2019 Marital Status Patient declined 03/08/2019 AUDIT-C Answer Date Recorded Frequency of Alcohol Consumption Never 09/27/2019 Average Number of Drinks Not on file 020 Frequency of Binge Drinking Not on file 09/11 PHQ-2 Answer Date Recorded PHQ-2 Total Score 0 03/22/2022 [facility] of Occupat ional [facility] - Occupational Stress Questionnaire Answer Date Recorded [...] 11:30 AM EST Follow Up [facility] Cardiology [facility] [address] [facility] [address] [place], [place] [address] Srinath Stallings MD [address] [facility] [address] [place] [phone] 08/22/2025 3:45 PM EST Initial consult [facility] General Surgery [facility] [address] [place], [place] [address] Kimberlee Ace MD [address] [place] [address] 09/05/2025 9:20 AM EST Follow Up [facility] Sleep [facility] [address] [facility] [place], [place] [address] Dayana Franz MD [address] [place] [phone] 09/14/2025 12:45 PM EST Office Visit [facility] Urology [facility] [address] [facility] [address] Capo Ellington MD [address] [place] [phone] 11/23/2025 4:00 PM EDT Follow Up [facility] Internal Medicine [facility] [address] [facility] [address] [place], [place] [address] Claudia Mcknight DO [address] [place] [address] [address] [place] [address] documented as of this encounter Visit Diagnoses Not on filedocumented in this encounter Additional Health Concerns Assessment Noted Time PHQ-9 Depression Total Score: 0 03/22/20 22 8:56 AM EDT documented as of this encounter Care Teams Grounds Foreman Relationship Specialty Start Date End Date Claudia Mcknight DO [address] [place] [address] [address] [place] [phone] PCP - General Family Medicine 05/18/24 documented as of this encounter
--- OUTSIDE RECORDS SUMMARY | 2025-07-26 20:17 | XMS_ITS | Encounter Summary ---
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 Enjoys going to [employer], [...] Date Recorded PHQ-2 Total Score 0 09/06/2024 [facility] of Occupat ional Health - Occupational Stress [...] Description 08/17/2025 11:30 AM EST Follow Up [facility] Cardiology [facility] [address] [facility] [address] [place] [address] Srinath Stallings MD [address] [facility] [address] [place] [phone] 08/22/2025 3:45 PM EST Initial consult [facility] General Surgery [facility] [address] [place] [address] Kimberlee Ace MD [address] [place] [phone] 09/05/2025 9:20 AM EST Follow Up [facility] Sleep [facility] [address] [facility] [place], [place] [address] Dayana Franz MD [address] [place] [phone] 09/14/2025 12:45 PM EST Office Visit [facility] Urology [place] [address] [place], [place] [address] Capo Ellington MD [address] [place] [phone] 11/23/2025 4:00 PM EDT Follow Up [facility] Internal Medicine [facility] [address] [facility] [address] [place], [place] [address] Claudia Mcknight DO [address] [place] [address] [address] [place] [phone] documented as of this encounter Procedures [...] documented as of this encounter Care Teams Automobile Drivers Relationship Specialty Start Date End Date Claudia Mcknight DO [address] [place] [address] [address] [place] [phone] PCP - General Family Medicine 05/18/24 documented as of this encounter
--- OUTSIDE RECORDS SUMMARY | 2025-07-26 20:17 | XMS_ITS | Encounter Summary ---
Author Organization [facility] ou and Home Health Address [address] [place] [address] Care Team Providers Care Syruper Name Role Phone Claudia Mcknight DO Primary Care Provi errol Reason for Visit * Reason Onset Date Comments Triage 07/26/2024 Encounter Details Date Type Department Care Team (Late st Contact Info) Description 07/26/2024 Telephone [facility] Cardiology 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 Enjoys going to Christianity, [...] Friends and Family Patient declined 03/08/2019 Attends Methodist Services Patient declined 02/09 Active Member of Clubs or Organizations Patient declined 03/08/2019 Attends Club or Organization Meetings Patient de clined 03/08/2019 Marital Status Patient declined 03/08/2019 AUDIT-C Answer Date Recorded Frequency of Alcohol Consumption Never 09/27/2019 Average Number of Drinks Not on file 020 Frequency of Binge Drinking Not on file 09/11 PHQ-2 Answer Date Recorded PHQ-2 Total Score 0 06/25/2024 [facility] of Occupat ional Health - [...] PLS CALL REG PT BEING SEEN AT [facility] * Telephone Encounter - Sameer Nicole [...] 4:18 PM EST Patient was checked at [facility] and his BP was 207/111 p 74. [...] Description 08/17/2025 11:30 AM EST Follow Up [facility] Cardiology [facility] 112 [facility] 400 [place], [place] [address] Srinath Stallings MD [address] [phone] 08/22/2025 3:45 PM EST Initial consult [facility] General Surgery [facility] [address] [place] [address] Kimberlee Ace MD 111 [place] [phone] 09/05/2025 9:20 AM EST Follow Up [facility] Sleep [facility] [address]off [address] [place], [place] [address] Dayana Franz MD [address] [place] [phone] 09/14/2025 12:45 PM EST Office Visit [facility] Urology [facility] 115[address] [place] [address] Capo Ellington MD [address] [place] [phone] 11/23/2025 4:00 PM EDT Follow Up [facility] Internal Medicine [facility] [address] 888 [facility] [address] [place], [place] [address] Claudia Mcknight DO [address] [place] [address] [address] [place] [address] documented as of this encounter Visit Diagnoses Not on filedocumented in this encounter Additional Health Concerns Assessment Noted Time PHQ-9 Depression Total Score: 0 05/18/20 24 7:23 AM EDT documented as of this encounter Care Teams Syruper Relationship Specialty Start Date End Date Claudia Mcknight DO [address] [place] [address] [address] [place] [phone] PCP - General Family Medicine 05/18/24 documented as of this encounter
--- OUTSIDE RECORDS SUMMARY | 2025-07-26 20:17 | XMS_ITS | Encounter Summary ---
Author Organization [facility] ou and Home Health Address [address] [place] [address] Care Team Providers Care Wooden Barrel Mechanic Name Role Phone Claudia Mcknight DO Primary Care Provi errol Encounter Details Date Type Department Care Team (Late st Contact Info) Description 07/16/2024 Scanned Document [facility] Internal Medicine [facility] [address] [facility] [address] [place], [place] [address] Claudia Mcknight DO [address] [place] [phone] Social History Tobacco Use Types Packs/Day Years [...] Friends and Family Patient declined 03/08/2019 Attends Zoroastrianism Services Patient declined 02/09 Active Member of Clubs or Organizations Patient declined 03/08/2019 Attends Club or Organization Meetings Patient de clined 03/08/2019 Marital Status Patient declined 03/08/2019 AUDIT-C Answer Date Recorded Frequency of Alcohol Consumption Never 09/27/2019 Average Number of Drinks Not on file 020 Frequency of Binge Drinking Not on file 09/11 PHQ-2 Answer Date Recorded PHQ-2 Total Score 0 06/25/2024 [facility] of Occupat ional Health - Occupational Stress [...] 11:30 AM EST Follow Up NEM Cardiology [facility] 112 [facility] [address] [place] [address] Srinath Stallings MD 112 [facility] 400 [place] [phone] 08/22/2025 3:45 PM EST Initial consult [facility] General Surgery [facility]. 8 [place], [place] [address] Kimberlee Ace MD 111 [place] [phone] 09/05/2025 9:20 AM EST Follow Up NEM Sleep [facility] [address] [place] [address] Dayana Franz MD [address] [place] [phone] 09/14/2025 12:45 PM EST Office Visit [facility] Urology [facility] 1152 [place] [address] Capo Ellington MD 1152 [place] [phone] 11/23/2025 4:00 PM EDT Follow Up [facility] Internal Medicine [facility] [address] [facility] [address] [place], [place] [address] Claudia Mcknight DO [address] [place] [address] [address] [place] [phone] documented as of this encounter Visit Diagnoses Not on filedocumented in this encounter Additional Health Concerns Assessment Noted Time PHQ-9 Depression Total Score: 0 05/18/20 24 7:23 AM EDT documented as of this encounter Care Teams Wooden Barrel Mechanic Relationship Specialty Start Date End Date Claudia Mcknight DO [address] [place] [address] [address] [place] [phone] PCP - General Family Medicine 05/18/24 documented as of this encounter
--- OUTSIDE RECORDS SUMMARY | 2025-07-26 20:17 | XMS_ITS | Encounter Summary ---
Author Organization [facility] ou and Home Health Address [address] [place] [address] Care Team Providers Care Airworthiness Safety Inspector Name Role Phone Claudia Mcknight DO Primary Care Provi errol Encounter Details Date Type Department Care Team (Late st Contact Info) Description 07/01/2022 Scanned Document [facility] Internal Medicine [facility] [address] [facility] [address] [place], [place] [address] Manjit Bryant MD [address] [place] [phone] Social History Tobacco Use Types Packs/Day Years [...] Date Recorded PHQ-2 Total Score 0 03/22/2022 [facility] of Occupat ional Health - Occupational Stress [...] Description 08/17/2025 11:30 AM EST Follow Up [facility] Cardiology [facility] 112 [facility] [address] [place] [address] Srinath Stallings MD 112 [facility] 400 [place] [phone] 08/22/2025 3:45 PM EST Initial consult [facility] General Surgery [facility]. 888 [place] [address] Kimberlee Ace MD 111 [place] [phone] 09/05/2025 9:20 AM EST Follow Up NEM Sleep [facility] Cutoff [address] [place], [place] [address] Dayana Franz MD [facility] [place] [phone] 09/14/2025 12:45 PM EST Office Visit [facility]rology [facility] 1152 [place] [address] Capo Ellington MD [address]2 [place] [phone] 11/23/2025 4:00 PM EDT Follow Up [facility] Internal Medicine [facility] [address] 8 [facility] [address] [place], [place] [address] Claudia Mcknight DO [address] [place] [address] [address] [place] [phone] documented as of this encounter Visit Diagnoses Not on filedocumented in this encounter Additional Health Concerns Assessment Noted Time PHQ-9 Depression Total Score: 0 03/22/20 22 8:56 AM EDT documented as of this encounter Care Teams Airworthiness Safety Inspector Relationship Specialty Start Date End Date Claudia Mcknight DO [address] [place] [address] [address] [place] [phone] PCP - General Family Medicine 05/18/24 documented as of this encounter
--- OUTSIDE RECORDS SUMMARY | 2025-07-26 20:17 | XMS_ITS | Encounter Summary ---
Author Organization [facility] Address [address] [place] [address] Care Team Providers Care Leadite Worker Name Role Phone Claudia Mcknight DO Primary Care Provi errol Encounter Details Date Type Department Care Team (Latest Contact Info) Description 07/28/2024 Transcribed Orders [facility] Draw Station 112 [facility], [address] [place] [address] Srinath Stallings MD 112 [facility] [address] [place] [phone] Hypopotassemia (Primary Dx); Hyperlipemia; Obstructive sleep apnea (adult) (pediatric); Essential hypertension, malignant Social History Tobacco Use Types Packs/Day Years Used Date Smoking Tobacco: Never Smokeless Tobacco: Never Comments:quit 16 yrs ago to [place]aciela, 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 Enjoys going to Hinduism, working around the house Alcohol Use Standard [...] Friends and Family Patient declined 03/08/2019 Attends Hindu Services Patient declined 02/09 Active Member of Clubs or Organizations Patient declined 03/08/2019 Attends Club or Organization Meetings Patient de clined 03/08/2019 Marital Status Patient declined 03/08/2019 AUDIT-C Answer Date Recorded Frequency of Alcohol Consumption Never 09/27/2019 Average Number of Drinks Not on file 020 Frequency of Binge Drinking Not on file 09/11 PHQ-2 Answer Date Recorded PHQ-2 Total Score 0 06/25/2024 [facility] of Occupat ional Health - [...] 11:30 AM EST Follow Up NEM Cardiology [facility] 112 [facility] [address] [place], [place] [address] Srinath Stallings MD 112 [facility] [address] [place] [phone] 08/22/2025 3:45 PM EST Initial consult NEM General Surgery [facility] [address] [place] [address] Kimberlee Ace MD 111 [place] [phone] 09/05/2025 9:20 AM EST Follow Up NEM Sleep [facility] [address] [place] [address] Dayana Franz MD [address] [place] [phone] 09/14/2025 12:45 PM EST Office Visit [facility] [address] [place] [address] Capo Ellington MD [address] [place] [address] 11/23/2025 4:00 PM EDT Follow Up [facility] Internal Medicine [facility] [address] [facility] [address] [place], [place] [address] Claudia Mcknight, DO [address] [place] [phone] documented as of this encounter Procedures Procedure Name Priority Date/Time Associated Diagnosis Comments PTH, INTACT WITHOUT CALCIUM Routine 07/28/2024 4:47 PM EST Hypopotassemia CORTISOL Routine 07/28/2024 4:47 PM EST Hypopotassemia documented in this encounter Results * PTH, intact without calcium (07/28/2024 4:47 PM EST) Parathyroid Hormone, Intact 46.4 15.0 - 65.0 pg/mL 07/28/2024 6:30 PM EST [facility] Blood Venipuncture / Unknown 07/28/2024 4:47 PM EST 07/28/2024 4:47 PM EST us Srinath Stallings MD LAB BLOOD [place] [address], [facility] [phone] * Cortisol (07/28/2024 4:47 PM EST) Cortisol 7.7 See Comment ug/dL 07/28/2024 7:58 PM EST [facility] Comment: Cortisol AM: 6.0 - 18.4 ug/dL Cortisol PM: 2.6 - 10.5 ug/dL Savanna M, Shelli J, Hannah Bettencourt Y et al. Multicenter performance evaluation of a second generation cortisol assay. Clin Chem Lab Med. 2017 December 09;55(6):826-835. PMID: [id number]. Blood Venipuncture / Unknown 07/28/2024 4:47 PM EST 07/28/2024 4:47 PM EST us Srinath Stallings MD LAB BLOOD ORDERABLES Final Re sult [address] [phone] documented in this encounter Visit Diagnoses Diagnosis Hypopotassemia- Primary Hyperlipemia Other and unspecified hyperlipidemia Obstructive sleep apnea (adult) (pediatric) Essential hypertension, malignant documented in this encounter Additional Health Concerns Assessment Noted Time PHQ-9 Depression Total Score: 0 05/18/20 24 7:23 AM EDT documented as of this encounter Care Teams Leadite Worker Relationship Specialty Start Date End Date Claudia Mcknight DO 8 [facility] 203 [place] [address] PCP - General Family Medicine 05/18/24 documented as of this encounter
--- OUTSIDE RECORDS SUMMARY | 2025-07-26 20:17 | XMS_ITS | Encounter Summary ---
Author Organization [facility] ou and Home Health Address [address] [place] [address] Care Team Providers Care Operations Supervisor Name Role Phone Claudia Mcknight DO Primary Care Provi errol Encounter Details Date Type Department Care Team (Late st Contact Info) Description 09/02/2024 Scanned Document [facility] Podiatry [facility] [address]. 112 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 Enjoys going to Jainism, working around the house Alcohol Use Standard [...] Friends and Family Patient declined 03/08/2019 Attends Synagogue Services Patient declined 02/09 Active Member of Clubs or Organizations Patient declined 03/08/2019 Attends Club or Organization Meetings Patient de clined 03/08/2019 Marital Status Patient declined 03/08/2019 AUDIT-C Answer Date Recorded Frequency of Alcohol Consumption Never 09/27/2019 Average Number of Drinks Not on file 020 Frequency of Binge Drinking Not on file 09/11 PHQ-2 Answer Date Recorded PHQ-2 Total Score 0 09/06/2024 [facility] of Occupat ional Health - [...] 11:30 AM EST Follow Up [facility] Cardiology [facility] 112 [facility] [address] [place], [place] [address] Srinath Stallings MD [address] [facility] [address] [place] [phone] 08/22/2025 3:45 PM EST Initial consult NEM General Surgery [facility] [address] [place] [address] Kimberlee Ace MD 111 [place] [phone] 09/05/2025 9:20 AM EST Follow Up [facility] [address] [place] [address] Dayana Franz MD [address]2 [place] [phone] 09/14/2025 12:45 PM EST Office Visit [facility] 1152 [place] [address] Capo Ellington MD [address] [place] [phone] 11/23/2025 4:00 PM EDT Follow Up [facility] Internal Medicine [facility] Rd[address] [facility] [address] [place], [place] [address] Claudia Mcknight DO [address] [place] [address] Rd [address] [place] [address] documented as of this encounter [...] documented as of this encounter Care Teams Operations Supervisor Relationship Specialty Start Date End Date Claudia Mcknight DO [address] [place] [address] [address] [place] [phone] PCP - General Family Medicine 05/18/24 documented as of this encounter
--- OUTSIDE RECORDS SUMMARY | 2025-07-26 20:17 | XMS_ITS | Encounter Summary ---
Author Organization [facility] Address [address] [place] [address] Care Team Providers Care Sales And Service Representative Name Role Phone Claudia Mcknight DO Primary Care Provi errol Encounter Details Date Type Department Care Team (Late st Contact Info) Description 08/16/2024 Scanned Document [facility] Internal Medicine [facility] 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 Enjoys going to Episcopalian, working around the house Alcohol Use Standard [...] Friends and Family Patient declined 03/08/2019 Attends Yarsanism Services Patient declined 02/09 Active Member of Clubs or Organizations Patient declined 03/08/2019 Attends Club or Organization Meetings Patient de clined 03/08/2019 Marital Status Patient declined 03/08/2019 AUDIT-C Answer Date Recorded Frequency of Alcohol Consumption Never 09/27/2019 Average Number of Drinks Not on file 020 Frequency of Binge Drinking Not on file 09/11 PHQ-2 Answer Date Recorded PHQ-2 Total Score 0 06/25/2024 [facility] of Occupat ional Health - Occupational [...] Description 08/17/2025 11:30 AM EST Follow Up [facility] Cardiology [facility] 112 [facility] [address] [place], [place] [address] Srinath Stallings MD 112 [facility] [address] [place] [phone] 08/22/2025 3:45 PM EST Initial consult [facility] General Surgery [facility] [address] [place] [address] Kimberlee Ace MD 111 [place] [phone] 09/05/2025 9:20 AM EST Follow Up [facility] Sleep [facility] [address] [place] [address] Dayana Franz MD [address] [place] [phone] 09/14/2025 12:45 PM EST Office Visit N[facility] Urology [place] [address] [place] [address] Capo Ellington MD [address]2 [place] [address] 11/23/2025 4:00 PM EDT Follow Up [facility] Internal Medicine [facility] [address] [facility] [address] [place], [place] [address] Claudia Mcknight DO [address] [place] [address] [address] [place] [address] documented as of this encounter [...] documented as of this encounter Care Teams Sales And Service Representative Relationship Specialty Start Date End Date Claudia Mcknight DO [address] [place] [address] [address] [place] [phone] PCP - General Family Medicine 05/18/24 documented as of this encounter
--- OUTSIDE RECORDS SUMMARY | 2025-07-26 20:17 | XMS_ITS | Encounter Summary ---
Author Organization [facility] Address [address] [place] [address] Care Team Providers Care Senior Db2 Systems Programmer Name Role Phone Claudia Mcknight DO Primary Care Provi errol Encounter Details Date Type Department Care Team ([facility] st Contact Info) Description 10/12/2021 Scanned Document INTERFACE DEFAULT [address] [place] [address] System, Provider Not In Social History Tobacco [...] of Binge Drinking Not on file 09/11 [facility] [place] of Occupat ional Health - Occupational Stress [...] Description 08/17/2025 11:30 AM EST Follow Up [facility] Cardiology [facility] 112 [facility] [address] [place] [address] Srinath Stallings MD 112 [facility] [address] [place] [phone] 08/22/2025 3:45 PM EST Initial consult [facility] General Surgery [facility] [address] [place], [place] [address] Kimberlee Ace MD 111 [place] [address] 09/05/2025 9:20 AM EST Follow Up [facility] Sleep [address] [address] Dayana Franz MD [address] [place] [phone] 09/14/2025 12:45 PM EST Office Visit N[facility] Urology [address] 76[address] Capo Ellington MD [address] [place] [phone] 11/23/2025 4:00 PM EDT Follow Up [facility] Internal Medicine [facility] [address] [place] [address] Claudia Mcknight DO [address] [place], [place] [phone] documented as of this encounter Procedures Procedure [...] on filedocumented in this encounter Care Teams Senior Db2 Systems Programmer Relationship Specialty Start Date End Date Claudia Mcknight DO [address] [place], [place] [phone] PCP - General Family Medicine 05/18/24 documented as of this encounter
--- OUTSIDE RECORDS SUMMARY | 2025-07-26 20:17 | XMS_ITS | Encounter Summary ---
Author Organization [facility] ou and Home Health Address [address] [place] [address] Care Team Providers Care Cartridge Loading Operator Name Role Phone Claudia Mcknight DO Primary Care Provi errol Encounter Details Date Type Department Care Team (Late st Contact Info) Description 07/28/2024 Scanned Document N[facility] Cardiology [facility] [address] 112 [facility] [address] [place] [address] External, Provider Social History Tobacco Use Types Packs/Day Years Used Date Smoking Tobacco: Never Smokeless Tobacco: Never Comments:quit 16 yrs ago to Graciela, 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 Enjoys going to Congregation, working around the house Alcohol Use Standard [...] Date Recorded PHQ-2 Total Score 0 06/25/2024 [facility] of Occupat ional Health - Occupational Stress [...] 08/17/2025 11:30 AM EST Follow Up [facility] Cardiology [facility] 112 [facility] [address] [place] [address] Srinath Stallings MD 112 [facility] [address] [place] [phone] 08/22/2025 3:45 PM EST Initial consult [facility] General Surgery [facility] [address] [place] [address] Kimberlee Ace MD 111 [place] [phone] 09/05/2025 9:20 AM EST Follow Up [facility] Sleep [facility] Cutoff [facility] [place], [place] [address] Dayana Franz MD [address] [place] [phone] 09/14/2025 12:45 PM EST Office Visit [facility] Urology [place] [address] [place], [place] [address] Capo Ellington MD 1152 [place] [phone] 11/23/2025 4:00 PM EDT Follow Up [facility] Internal Medicine [facility] [address] [facility] [address] [place], [place] [address] Claudia Mcknight DO [address] [place] [address] [address] [place] [address] documented as of this encounter Procedures [...] documented as of this encounter Care Teams Cartridge Loading Operator Relationship Specialty Start Date End Date Claudia Mcknight DO [address] [place] [address] [address] [place] [phone] PCP - General Family Medicine 05/18/24 documented as of this encounter
--- OUTSIDE RECORDS SUMMARY | 2025-07-26 20:17 | XMS_ITS | Encounter Summary ---
Author Organization [facility] oup and Home Health Address [address] [place] [address] Care Team Providers Care Registration Representative Name Role Phone Claudia Mcknight DO Primary Care Provi errol Reason for Visit * Reason Comments Med Change Request Encounter Details Date Type Department Care Team (Late st Contact Info) Description 04/09/2022 Refill [facility] Internal Medicine [facility]. 8 [facility] 203 [place], [place] [id number] Manjit Bryant MD [address] [place] [address] 203 [place] [address] Med Change Request Social History [...] Friends and Family Patient declined 03/08/2019 Attends Protestant Services Patient declined 02/09 Active Member of Clubs or Organizations Patient declined 03/08/2019 Attends Club or Organization Meetings Patient de clined 03/08/2019 Marital Status Patient declined 03/08/2019 AUDIT-C Answer Date Recorded Frequency of Alcohol Consumption Never 09/27/2019 Average Number of Drinks Not on file 020 Frequency of Binge Drinking Not on file 09/11 PHQ-2 Answer Date Recorded PHQ-2 Total Score 0 03/22/2022 [facility] of Occupat ional [facility] - Occupational Stress Questionnaire Answer Date [...] 11:30 AM EST Follow Up [facility] Cardiology [facility] 112 [facility] [address] [place], [place] [address] Srinath Stallings MD 112 [facility] [address] [place] [phone] 08/22/2025 3:45 PM EST Initial consult [facility] General Surgery [facility] [address] [place], [place] [address] Kimberlee Ace MD 111 [place] [address] 09/05/2025 9:20 AM EST Follow Up [facility] Sleep [facility] 1152 [facility] [place], [place] [address] Dayana Franz MD 1152 [place] [phone] 09/14/2025 12:45 PM EST Office Visit N[facility] Urology [facility] 1152 [place] [address] Capo Ellington MD 1152 [place] [phone] 11/23/2025 4:00 PM EDT Follow Up [facility] Internal Medicine [facility] [address] [facility] [address] [place], [place] [address] Claudia Mcknight DO [address] [place] [address] Rd [address] [place] [address] documented as of this encounter Visit Diagnoses Not on filedocumented in this encounter Additional Health Concerns Assessment Noted Time PHQ-9 Depression Total Score: 0 03/22/20 22 8:56 AM EDT documented as of this encounter Care Teams Registration Representative Relationship Specialty Start Date End Date Claudia Mcknight DO [address] [place] [address] [address] [place] [phone] PCP - General Family Medicine 05/18/24 documented as of this encounter
--- OUTSIDE RECORDS SUMMARY | 2025-07-26 20:18 | XMS_ITS | Encounter Summary ---
Author Organization [facility] ou and Home Health Address [address] [place] [address] Care Team Providers Care Metalizer Name Role Phone Claudia Mcknight DO Primary Care Provi errol Reason for Visit * Reason Comments Medication Refill Encounter Details Date Type Department Care Team (Late st Contact Info) Description 10/08/2024 Refill [facility] Internal Medicine [facility] 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 Enjoys going to Evangel[employer], working around the house Alcohol Use Standard [...] Friends and Family Patient declined 03/08/2019 Attends Rastafari Services Patient declined 02/09 Active Member of Clubs or Organizations Patient declined 03/08/2019 Attends Club or Organization Meetings Patient de clined 03/08/2019 Marital Status Patient declined 03/08/2019 AUDIT-C Answer Date Recorded Frequency of Alcohol Consumption Never 09/27/2019 Average Number of Drinks Not on file 020 Frequency of Binge Drinking Not on file 09/11 PHQ-2 Answer Date Recorded PHQ-2 Total Score 0 09/06/2024 [facility] of Occupat ional Health - [...] 11:30 AM EST Follow Up NEM Cardiology [facility] 112 [facility] [address] [place], [place] [address] Srinath Stallings MD 112 [facility] [address] [place] [phone] 08/22/2025 3:45 PM EST Initial consult NEM General Surgery [facility] [address] [place] [address] Kimberlee Ace MD 111 [place] [address] 09/05/2025 9:20 AM EST Follow Up [facility] Sleep [facility] [address] [place], [place] [address] Dayana Franz MD 1152 [place] [address] 09/14/2025 12:45 PM EST Office Visit [facility]rology [facility] 1152 [place] [address] Capo Ellington MD [address] [place] [phone] 11/23/2025 4:00 PM EDT Follow Up [facility] Internal Medicine [facility] [address] [facility] [address] [place], [place] [address] Claudia Mcknight DO [address] [place] [address] [address] [place] [phone] documented as of this encounter Visit Diagnoses Diagnosis Bilateral chronic knee pain Pain in joint, lower leg documented in this encounter Additional Health Concerns Assessment Noted Time PHQ-9 Depression Total Score: 0 05/18/20 7:23 AM EDT documented as of this encounter Care Teams Metalizer Relationship Specialty Start Date End Date Claudia Mcknight DO [address] [place] [address] [address] [place] [phone] PCP - General Family Medicine 05/18/24 documented as of this encounter
--- OUTSIDE RECORDS SUMMARY | 2025-07-26 20:19 | XMS_ITS | Encounter Summary ---
Author Organization [facility] Address [address] [place] [address] Care Team Providers Care Vegetable Cutter Name Role Phone Ankit Edge Primary Care Provider [phone] Yasir Winter MD Unavailable [phone] Manjit Bryant MD Primary Care Provider Unav ailable Antonio-Pospisil, Claudia DO Unavailable [phone] Antonio-Pospisil, Claudia DO Primary Care Provi errol Encounter Details Date Type Department Care Team (Late st Contact Info) Description 10/12/2021 Scanned Document [facility] [address] [place] [address] Yasir Winter MD [facility] [address] [place] [address] Social History Tobacco Use Types [...] on filedocumented in this encounter Care Teams Vegetable Cutter Relationship Specialty Start Date End Date Ankit Edge PA [address] [place] [address] PCP - General 01/22/21 06/30/22 Manjit Bryant MD [facility] Technology [facility] [address] [address] PCP - General Internal Medicine 07/01/22 06/02/24 Claudia Otto DO 888 [facility] [address] [place] [address] PCP - General Family Medicine 06/15/24 Yasir Winter MD [facility] [address] [address] Gastroenterology 01/22/21 Claudia Otto DO [address] [facility] [address] [place] [address] Family Medicine 05/21/24 documented as of this encounter
--- OUTSIDE RECORDS SUMMARY | 2025-07-26 20:19 | XMS_ITS | Encounter Summary ---
Author Organization [facility] ou and Home Health Address [address] [place] [address] Care Team Providers Care Director Risk Name Role Phone Claudia Mcknight DO Primary Care Provi errol Encounter Details Date Type Department Care Team (Late st Contact Info) Description 06/03/2024 Scanned Document [facility] Internal Medicine [facility] [address] [facility] [address] [place], [place] [address] Claudia Mcknight DO [address] [place] [phone] Social History Tobacco Use Types Packs/Day Years [...] Date Recorded PHQ-2 Total Score 0 05/18/2024 [facility] [place] of Occupat ional Health - Occupational Stress [...] 11:30 AM EST Follow Up NEM Cardiology [facility] 112 [facility] [address] [place] [address] Srinath Stallings MD 112 [facility] 400 [place] [phone] 08/22/2025 3:45 PM EST Initial consult [facility] General Surgery [facility]. 8 [place], [place] [address] Kimberlee Ace MD 111 [place] [phone] 09/05/2025 9:20 AM EST Follow Up NEM Sleep [facility] [address] [place] [address] Dayana Franz MD [address] [place] [phone] 09/14/2025 12:45 PM EST Office Visit [facility] 1152 [place] [address] Capo Ellington MD 1152 [place] [phone] 11/23/2025 4:00 PM EDT Follow Up [facility] Internal Medicine [facility] [address] [facility] [address] [place], [place] [address] Claudia Mcknight DO [address] [place] [address] [address] [place] [phone] documented as of this encounter Visit Diagnoses Not on filedocumented in this encounter Additional Health Concerns Assessment Noted Time PHQ-9 Depression Total Score: 0 05/18/20 24 7:23 AM EDT documented as of this encounter Care Teams Director Risk Relationship Specialty Start Date End Date Claudia Mcknight DO [address] [place] [address] [address] [place] [phone] PCP - General Family Medicine 05/18/24 documented as of this encounter
--- OUTSIDE RECORDS SUMMARY | 2025-07-26 20:19 | XMS_ITS | Encounter Summary ---
Author Organization [facility] Address [address] [place] [address] Care Team Providers Care General Duty Nurse Name Role Phone Ankit Edge Primary Care Provider [phone] Yasir Winter MD Unavailable [phone] Manjit Bryant MD Primary Care Provider Unav ailable Antonio-Pospisil, Claudia DO Unavailable [phone] Antonio-Pospisil, Claudia DO Primary Care Provi errol Encounter Details Date Type Department Care Team (Late st Contact Info) Description 10/02/2021 Scanned Document [facility] [address] [place] [address] Yasir Winter MD [address] [place], [place] [phone] Social History Tobacco Use Types Packs/Day Years [...] on filedocumented in this encounter Care Teams General Duty Nurse Relationship Specialty Start Date End Date Ankit Edge PA [address] [place] [address] PCP - General 01/22/21 06/30/22 Manjit Bryant MD [facility] [address] [address] PCP - General Internal Medicine 07/01/22 06/02/24 Claudia Otto DO [address] [place] [address] PCP - General Family Medicine 06/15/24 Yasir Winter MD [facility] Technology [facility] [address] [address] Gastroenterology 01/22/21 Claudia Otto DO [address] [place] [address] Family Medicine 05/21/24 documented as of this encounter
--- OUTSIDE RECORDS SUMMARY | 2025-07-26 20:19 | XMS_ITS | Encounter Summary ---
Author Organization [facility] ou and Home Health Address [address] [place] [address] Care Team Providers Care Statistical Programmer Name Role Phone Claudia Mcknight DO Primary Care Provi errol Reason for Visit * Reason Comments Medication Refill Encounter Details Date Type Department Care Team (Late st Contact Info) Description 11/13/2023 Refill NEM Internal Medicine [facility]. 8 [facility] 203 [place], [place] [phone] Mnajit Bryant MD [address] [place] [address] 203 [place] [address] Medication Refill Social History Tobacco [...] Friends and Family Patient declined 03/08/2019 Attends Shinto Services Patient declined 02/09 Active Member of Clubs or Organizations Patient declined 03/08/2019 Attends Club or Organization Meetings Patient de clined 03/08/2019 Marital Status Patient declined 03/08/2019 AUDIT-C Answer Date Recorded Frequency of Alcohol Consumption Never 09/27/2019 Average Number of Drinks Not on file 020 Frequency of Binge Drinking Not on file 09/11 PHQ-2 Answer Date Recorded PHQ-2 Total Score 0 05/16/2023 [facility] of Occupat ional [facility] - Occupational Stress Questionnaire Answer [...] Description 08/17/2025 11:30 AM EST Follow Up [facility] Cardiology [facility] 112 [facility] 400 [place], [place] [address] Srinath Stallings MD 112 [facility] 400 [place] [phone] 08/22/2025 3:45 PM EST Initial consult [facility] General Surgery [facility] [address] [place] [address] Kimberlee Ace MD 111 [place] [phone] 09/05/2025 9:20 AM EST Follow Up NEM Sleep [facility] [address] [place], [place] [address] Dayana Franz MD 1152 [place] [address] 09/14/2025 12:45 PM EST Office Visit NEM Urology [facility] 1152 [place] [address] Capo Ellington MD [address] [place] [address] 11/23/2025 4:00 PM EDT Follow Up [facility] Internal Medicine [facility] [address] 8 [facility] [address] [place], [place] [address] Claudia Mcknight DO [address] [place] [address] [address] [place] [address] documented as of this encounter Visit Diagnoses Not on filedocumented in this encounter Additional Health Concerns Assessment Noted Time PHQ-9 Depression Total Score: 0 05/16/20 23 2:48 PM EDT documented as of this encounter Care Teams Statistical Programmer Relationship Specialty Start Date End Date Claudia Mcknight DO [address] [place] [address] [address] [place] [address] PCP - General Family Medicine 05/18/24 documented as of this encounter
--- OUTSIDE RECORDS SUMMARY | 2025-07-26 20:19 | XMS_ITS | Encounter Summary ---
Author Organization [facility] Address [address] [place] [address] Care Team Providers Care Commanding Officer Garage Name Role Phone Ankit Edge Primary Care Provider [phone] Yasir Winter MD Unavailable [phone] Manjit Bryant MD Primary Care Provider Unav ailable Antonio-Pospisil, Claudia DO Unavailable [phone] Antonio-Pospisil, Claudia DO Primary Care Provi errol Encounter Details Date Type Department Care Team (Late st Contact Info) Description 10/12/2021 Scanned Document [facility] [address] [place] [address] Yasir Winter MD [facility] [address] [place] [address] Social History Tobacco Use Types [...] on filedocumented in this encounter Care Teams Commanding Officer Garage Relationship Specialty Start Date End Date Ankit Edge PA [address] [place] [address] PCP - General 01/22/21 06/30/22 Manjit Bryant MD [facility] Technology [facility] [address] [address] PCP - General Internal Medicine 07/01/22 06/02/24 Claudia Otto DO 888 [facility] [address] [place] [address] PCP - General Family Medicine 06/15/24 Yasir Winter MD [facility] [address] [address] Gastroenterology 01/22/21 Claudia Otto DO [address] [facility] [address] [place] [address] Family Medicine 05/21/24 documented as of this encounter
--- OUTSIDE RECORDS SUMMARY | 2025-07-26 20:19 | XMS_ITS | Encounter Summary ---
Author Organization [facility] ou and Home Health Address [address] [place] [address] Care Team Providers Care Head Resident Name Role Phone Claudia Mcknight DO Primary Care Provi errol Encounter Details Date Type Department Care Team (Late st Contact Info) Description 11/23/2024 Scanned Document NEM Cardiology [facility] [address] 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 Enjoys going to [employer], [...] Date Recorded PHQ-2 Total Score 0 09/06/2024 [facility] of Occupat ional Health - Occupational Stress [...] Description 08/17/2025 11:30 AM EST Follow Up [facility] Cardiology [facility] [address] [facility] [address] [place] [address] Srinath Stallings MD 112 [facility] [address] [place] [phone] 08/22/2025 3:45 PM EST Initial consult [facility] General Surgery [facility] [address] [place] [address] Kimberlee Ace MD 111 [place] [phone] 09/05/2025 9:20 AM EST Follow Up [facility] Sleep [facility] [address] [facility] [place], [place] [address] Dayana Franz MD [address] [place] [phone] 09/14/2025 12:45 PM EST Office Visit NEM Urology [place] [address] [place], [place] [address] Capo Ellington MD [address]2 [place] [phone] 11/23/2025 4:00 PM EDT Follow Up [facility] Internal Medicine [facility] [address] [facility] [address] [place], [place] [address] Claudia Mcknight DO [address] [place] [address] [address] [place] [address] documented as of this encounter [...] documented as of this encounter Care Teams Head Resident Relationship Specialty Start Date End Date Claudia Mcknight DO [address] [place] [address] [address] [place] [phone] PCP - General Family Medicine 05/18/24 documented as of this encounter
--- OUTSIDE RECORDS SUMMARY | 2025-07-26 20:19 | XMS_ITS | Encounter Summary ---
Author Organization [facility] ou and Home Health Address [address] [place] [address] Care Team Providers Care Operations Administrative Assistant Name Role Phone Claudia Mcknight DO Primary Care Provi errol Encounter Details Date Type Department Care Team (Late st Contact Info) Description 06/16/2024 Scanned Document [facility] Internal Medicine [facility] [address] [facility] [address] [place], [place] [address] Claudia Mcknight DO [address] [place] [phone] Social History Tobacco Use Types Packs/Day Years [...] Friends and Family Patient declined 03/08/2019 Attends Yarsani Services Patient declined 02/09 Active Member of Clubs or Organizations Patient declined 03/08/2019 Attends Club or Organization Meetings Patient de clined 03/08/2019 Marital Status Patient declined 03/08/2019 AUDIT-C Answer Date Recorded Frequency of Alcohol Consumption Never 09/27/2019 Average Number of Drinks Not on file 020 Frequency of Binge Drinking Not on file 09/11 PHQ-2 Answer Date Recorded PHQ-2 Total Score 0 05/18/2024 [facility] [place] of Occupat ional Health - Occupational Stress [...] 11:30 AM EST Follow Up NEM Cardiology [facility] 112 [facility] [address] [place] [address] Srinath Stallings MD 112 [facility] 400 [place] [phone] 08/22/2025 3:45 PM EST Initial consult [facility] General Surgery [facility]. 8 [place], [place] [address] Kimberlee Ace MD 111 [place] [phone] 09/05/2025 9:20 AM EST Follow Up NEM Sleep [facility] [address] [place] [address] Dayana Franz MD [address] [place] [phone] 09/14/2025 12:45 PM EST Office Visit NEM Urology [facility] 1152 [place] [address] Capo Ellington MD 1152 [place] [phone] 11/23/2025 4:00 PM EDT Follow Up [facility] Internal Medicine [facility] [address] [facility] [address] [place], [place] [address] Claudia Mcknight DO [address] [place] [address] [address] [place] [address] documented as of this encounter Procedures Procedure Name Priority Date/Time Associated Diagnosis Comments [place] EDG US EXAM SURGICAL ALTER STOM DUODENUM/JEJUNUM Routine 06/15/2024 1:46 PM EST documented in this encounter Results * [place] EDG US EXAM SURGICAL ALTER STOM DUODENUM/JEJUNUM (06/15/2024 1:46 PM EST) us Claudia Mcknight DO [place] [employer] Final Result documented in this encounter Visit Diagnoses Not on filedocumented in this encounter Additional Health Concerns Assessment Noted Time PHQ-9 Depression Total Score: 0 05/18/20 24 7:23 AM EDT documented as of this encounter Care Teams Operations Administrative Assistant Relationship Specialty Start Date End Date Claudia Mcknight DO [address] [place] [address] Rd [address] [place] [address] PCP - General Family Medicine 05/18/24 documented as of this encounter
--- OUTSIDE RECORDS SUMMARY | 2025-07-26 20:19 | XMS_ITS | Encounter Summary ---
Author Organization [facility] Address [address] [place] [address] Care Team Providers Care Photographic Spotter Name Role Phone Ankit Edge Primary Care Provider [phone] Yasir Winter MD Unavailable [phone] Manjit Bryant MD Primary Care Provider Unav ailable Antonio-Pospisil Claudia Unavailable [phone] Antonio-Pospisil, Claudia DO Primary Care Provi errol Encounter Details Date Type Department Care Team (Late st Contact Info) Description 10/12/2021 Scanned Document [facility] [address] [place] [phone] Gastroenterology, Scan Social History Tobacco Use Types [...] on filedocumented in this encounter Care Teams Photographic Spotter Relationship Specialty Start Date End Date Ankit Edge PA [address] [place] [address] PCP - General 01/22/21 06/30/22 Manjit Bryant MD [facility] [address] [place] [address] PCP - General Internal Medicine 07/01/22 06/02/24 Claudia Otto DO [address] [facility] [address] [place] [address] PCP - General Family Medicine 06/15/24 Yasir Winter MD [facility] Technology [employer] [address] [place] [address] Gastroenterology 01/22/21 Claudia Otto DO [address] [facility] [address] [place] [address] Family Medicine 05/21/24 documented as of this encounter
--- OUTSIDE RECORDS SUMMARY | 2025-07-26 20:19 | XMS_ITS | Encounter Summary ---
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 Enjoys going to [employer], [...] Date Recorded PHQ-2 Total Score 0 09/06/2024 [facility] [place] of Occupat ional Health - Occupational Stress [...] Description 08/17/2025 11:30 AM EST Follow Up [facility] Cardiology [facility] [address] [facility] [address] [place] [address] Srinath Stallings MD [address] [place] [phone] 08/22/2025 3:45 PM EST Initial consult [facility] General Surgery [facility] [address] [place] [address] Kimberlee Ace MD [address] [place] [phone] 09/05/2025 9:20 AM EST Follow Up [facility] Sleep [facility] Cut[address] [place] [place] [address] 290124 Dayana Franz MD [address] [place] [phone] 09/14/2025 12:45 PM EST Office Visit [facility] Urology [address] [address] Capo Ellington MD 115[address] [place] [address] 11/23/2025 4:00 PM EDT Follow Up N[facility] Internal Medicine [facility] [address] [facility] [address] [place], [place] [address] Claudia Mcknight DO [address] [place] [phone] documented as of this encounter Procedures Procedure [...] documented as of this encounter Care Teams Telecommunications Specialist Relationship Specialty Start Date End Date Claudia Mcknight DO [address] [place] [phone] PCP - General Family Medicine 05/18/24 documented as of this encounter
--- OUTSIDE RECORDS SUMMARY | 2025-07-26 20:19 | XMS_ITS | Encounter Summary ---
Author Organization [facility] Address [address] [place] [address] Care Team Providers Care Director Airport Name Role Phone Claudia Mcknight DO Primary Care Provi errol Reason for Visit * Reason Comments Medication Refill Encounter Details Date Type Department Care Team (Late st Contact Info) Description 11/08/2023 Refill N[facility] Internal Medicine [facility] 8 [facility] 203 [place], [place] [phone] Manjit Bryant MD [address] [place] [address] [address] [place] [address] Medication Refill Social History Tobacco [...] Friends and Family Patient declined 03/08/2019 Attends Tenriism Services Patient declined 02/09 Active Member of Clubs or Organizations Patient declined 03/08/2019 Attends Club or Organization Meetings Patient de clined 03/08/2019 Marital Status Patient declined 03/08/2019 AUDIT-C Answer Date Recorded Frequency of Alcohol Consumption Never 09/27/2019 Average Number of Drinks Not on file 020 Frequency of Binge Drinking Not on file 09/11 PHQ-2 Answer Date Recorded PHQ-2 Total Score 0 05/16/2023 [facility] of Occupat ional [facility] - Occupational Stress Questionnaire Answer Date [...] Description 08/17/2025 11:30 AM EST Follow Up [facility] Cardiology [facility] [address] [facility] 400 [place], [place] [address] Srinath Stallings MD 112 [facility] 400 [place] [phone] 08/22/2025 3:45 PM EST Initial consult [facility] General Surgery [facility] [address] [place] [address] Kimberlee Ace MD 111 [place] [phone] 09/05/2025 9:20 AM EST Follow Up [facility] Sleep [facility] [address] [place], [place] 7197[address] Dayana Franz MD 1152 [place] [address] 09/14/2025 12:45 PM EST Office Visit [facility] Urology [facility] 1152 [place] [address] Capo Ellington MD [address]2 [place] [address] 11/23/2025 4:00 PM EDT Follow Up [facility] Internal Medicine [facility] [address] [facility] [address] [place], [place] [address] Claudia Mcknight DO [address] [place] [address] Rd [address] [place] [address] documented as of this encounter Visit Diagnoses Not on filedocumented in this encounter Additional Health Concerns Assessment Noted Time PHQ-9 Depression Total Score: 0 05/16/20 23 2:48 PM EDT documented as of this encounter Care Teams Director Airport Relationship Specialty Start Date End Date Claudia Mcknight DO [address] [place] [address] Rd [address] [place] [address] PCP - General Family Medicine 05/18/24 documented as of this encounter
--- OUTSIDE RECORDS SUMMARY | 2025-07-26 20:19 | XMS_ITS | Encounter Summary ---
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 Enjoys going to Sikhism, [...] Friends and Family Patient declined 03/08/2019 Attends Hinduism Services Patient declined 02/09 Active Member of Clubs or Organizations Patient declined 03/08/2019 Attends Club or Organization Meetings Patient de clined 03/08/2019 Marital Status Patient declined 03/08/2019 AUDIT-C Answer Date Recorded Frequency of Alcohol Consumption Never 09/27/2019 Average Number of Drinks Not on file 020 Frequency of Binge Drinking Not on file 09/11 PHQ-2 Answer Date Recorded PHQ-2 Total Score 0 09/06/2024 [facility] [place] of Occupat ional Health - Occupational Stress [...] 08/17/2025 11:30 AM EST Follow Up [facility] [address] [facility] [address] [place] [address] Srinath Stallings MD [address] [facility] [address] [place] [phone] 08/22/2025 3:45 PM EST Initial consult [facility] General Surgery [facility] [address] [place] [address] Kimberlee Ace MD 111 [place] [phone] 09/05/2025 9:20 AM EST Follow Up [facility] Sleep [facility] [address] [place] [address] 406724 Dayana Franz MD [address] [place] [phone] 09/14/2025 12:45 PM EST Office Visit [facility] Urology [address] [address] Capo Ellington MD 1152 [place] [phone] 11/23/2025 4:00 PM EDT Follow Up [facility] Internal Medicine [facility] [address] [facility] [address] [place], [place] [address] Claudia Mcknight DO [address] [place] [address] [address] [place] [phone] documented as of this encounter Visit Diagnoses Not on filedocumented in this encounter Additional Health Concerns Assessment Noted Time PHQ-9 Depression Total Score: 0 05/18/20 24 7:23 AM EDT documented as of this encounter Care Teams Blueprint Maker Relationship Specialty Start Date End Date Claudia Mcknight DO [address] [place] [address] [address] [place] [phone] PCP - General Family Medicine 05/18/24 documented as of this encounter
--- OUTSIDE RECORDS SUMMARY | 2025-07-26 20:19 | XMS_ITS | Encounter Summary ---
Author Organization [facility] Address [address] [place] [address] Care Team Providers Care Director Of Global Talent Name Role Phone Ankit Edge Primary Care Provider [phone] Yasir Winter MD Unavailable [phone] Manjit Bryant MD Primary Care Provider Unav ailable Antonio-Pospisil, Claudia DO Unavailable [phone] Antonio-Pospisil, Claudia DO Primary Care Provi errol Encounter Details Date Type Department Care Team (Late st Contact Info) Description 06/28/2021 Scanned Document [facility] [address] [place] [address] Yasir Winter MD [address] [place] [address] Social History Tobacco Use Types [...] in this encounter Care Teams Director Of Global Talent Relationship Specialty Start Date End Date Ankit Edge PA [address] [place] [address] PCP - General 01/22/21 06/30/22 Manjit Bryant MD [facility] [address] [address] PCP - General Internal Medicine 07/01/22 06/02/24 Claudia Otto DO [address] [facility] [address] [place] [address] PCP - General Family Medicine 06/15/24 Yasir Winter MD [facility] [address] [employer] [address] [place] [address] Gastroenterology 01/22/21 Claudia Otto DO [address] [facility] [address] [place] [address] Family Medicine 05/21/24 documented as of this encounter
--- OUTSIDE RECORDS SUMMARY | 2025-07-26 20:20 | XMS_ITS | Encounter Summary ---
Author Organization [facility] Address [address] [place] [address] Care Team Providers Care Home Care Specialist Name Role Phone Yasir Winter MD Unavailable [phone] Claudia Otto DO Unavailable [phone] AntonioClaudia Ozuna DO Primary Care Provi errol Encounter Details Date Type Department Care Team (Late st Contact Info) Description 08/25/2024 Scanned Document [facility] [address] [place] [address] Provider, Generic Social History Tobacco Use [...] weeks. PT LTG 4 Physical Therapy No eMlody Watkins PT Note: Patient will be independent with HEP/ self-management of symptoms in 6 weeks. documented as of this encounter Visit Diagnoses Not on filedocumented in this encounter Care Teams Home Care Specialist Relationship Specialty Start Date End Date Claudia Otto DO [address] [place] [address] PCP - General Family Medicine 06/15/24 Yasir Winter MD [facility] [address] [place] [address] Gastroenterology 01/22/21 Claudia Otto DO [address] [place] [address] Family Medicine 05/21/24 documented as of this encounter
--- OUTSIDE RECORDS SUMMARY | 2025-07-26 20:20 | XMS_ITS | Clinical Summary ---
Author Organization [facility] Address [address] [place] [address] Care Team Providers Care Respiratory Therapist Assistant Name Role Phone Yasir Winter MD Unavailable [phone] Claudia Otto DO Unavailable [phone] Claudia Otto DO Primary Care Provi errol [...] Plan (07/01/2022 5:16 PM EST): He had Ídaz's esophagus with high-grade dysplasia. He had radiofrequency [...] Department Care Team Description 06/09/2025 Scanned Document [address] [phone] Frankie Alvarez MD 05/19/2025 4:15 PM EDT Office Visit [address] [address] Frankie Alvarez MD Lumbar radiculopathy (Primary Dx); Isthmic spondylolisthesis from Last 3 Months Family History Medical [...] Health Maintenance Due Date Last Done Comments DTaP/Tdap/Td Vaccines (1 - Tdap) 1983 Pneumococcal Vaccines 50+ (1 of 1 - PCV) 2014 RSV Vaccine 50 years and older and Patients (1 - Risk 50-74 years 1-dose series) 2014 Zoster (Shingles) Vaccine (1 of 2) 2014 COVID-19 Vaccine ( season) 2025 05/09/2023, 12/06/2020, 11/08/2020 Colonoscopy 10/12/2026 10/12/2021 HIV Screening Completed 05/18/2024, 05/18/2024 Hepatitis C Virus Screening Completed 05/18/2024 Influenza Vaccine Completed 05/25/2025, [...] HEP/ self-management of symptoms in 6 weeks. Insurance [facility] HMO Care Teams Respiratory Therapist Assistant Relationship Specialty Start Date End Date Claudia Otto DO [address] [facility] [address] [place] [address] PCP - General Family Medicine 06/15/24 Yasir Winter MD [address] [place] [address] [address] [place] [address] Gastroenterology 01/22/21 Claudia Otto DO [address] [employer] [address] [place] [address] Family Medicine 05/21/24
--- OUTSIDE RECORDS SUMMARY | 2025-07-26 20:20 | XMS_ITS | Clinical Summary ---
Author Organization [employer] Address [address] [facility] 7[address] [place] [address] Care Team Providers Care Cat Sitter Name Role Phone Unavailable Primary Care Provider [...] of 2) 2014 COVID-19 Vaccine ( - 2024-2 6 season) 2025 Influenza Vaccine (#1) 2025 RSV [...] patient's age to complete this topic [place] [address] [place] [address]
--- OUTSIDE RECORDS SUMMARY | 2025-07-26 20:20 | XMS_ITS | Encounter Summary ---
Author Organization [facility] Address [address] [place] [address] Care Team Providers Care Sanitation Engineer Name Role Phone Yasir Winter MD Unavailable [phone] Claudia Otto DO Unavailable [phone] AntonioClaudia Ozuna DO Primary Care Provi errol Encounter Details Date Type Department Care Team (Late st Contact Info) Description 08/23/2024 Scanned Document [facility] OR[facility] [address] [place] [address] Provider, Generic Social History Tobacco Use [...] on filedocumented in this encounter Care Teams Sanitation Engineer Relationship Specialty Start Date End Date Claudia Otto DO [address] [place] [address] PCP - General Family Medicine 06/15/24 Yasir Winter MD [facility] [address] [place] [address] Gastroenterology 01/22/21 Claudia Otto DO [address] [place] [address] Family Medicine 05/21/24 documented as of this encounter
--- OUTSIDE RECORDS SUMMARY | 2025-07-26 20:20 | XMS_ITS | Encounter Summary ---
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 Enjoys going to [employer], working around the house Alcohol Use Standard [...] Date Recorded PHQ-2 Total Score 0 09/06/2024 [facility] of Occupat ional Health - [...] 11:30 AM EST Follow Up [facility] Cardiology [facility] 112 [facility] [address] [place], [place] [address] Srinath Stallings MD 112 [facility] [address] [place] [phone] 08/22/2025 3:45 PM EST Initial consult [facility] General Surgery [facility] [address] [place], [place] [address] Kimberlee Ace MD [address] [place] [phone] 09/05/2025 9:20 AM EST Follow Up [facility] [address] [place], [place] [address] Dayana Franz MD [address] [place] [phone] 09/14/2025 12:45 PM EST Office Visit [facility] 115[address] [place] [address] Capo Ellington MD [address] [place] [address] 11/23/2025 4:00 PM EDT Follow Up [facility] Internal Medicine [facility] [address] [facility] [address] [place], [place] [address] Claudia Mcknight DO [address] [place] [address] Rd [address] [place] [address] documented as of this encounter Visit Diagnoses Not on filedocumented in this encounter Additional Health Concerns Assessment Noted Time PHQ-9 Depression Total Score: 0 05/18/20 7:23 AM EDT documented as of this encounter Care Teams Cigarette Packing Machine Operator Relationship Specialty Start Date End Date Claudia Mcknight DO [address] [place] [address] Rd [address] [place] [address] PCP - General Family Medicine 05/18/24 documented as of this encounter
--- OUTSIDE RECORDS SUMMARY | 2025-07-26 20:20 | XMS_ITS | Encounter Summary ---
Author Organization [facility] Address [address] [place] [address] Care Team Providers Care Crime Victim Specialist Name Role Phone Yasir Winter MD Unavailable [phone] Manjit Bryant MD Primary Care Provider Jairo ailable Antonio-PospisilClaudia DO Unavailable [phone] Antonio-Pospisil, Claudia DO Primary Care Provi errol Encounter Details Date Type Department Care Team (Late st Contact Info) Description 07/25/2022 Scanned Document [facility] [address] [place] [phone] Gastroenterology, Scan Social History Tobacco Use Types [...] on filedocumented in this encounter Care Teams Crime Victim Specialist Relationship Specialty Start Date End Date Manjit Bryant MD [address] [place] [address] PCP - General Internal Medicine 07/01/22 06/02/24 Claudia Otto DO [address] [place] [address] PCP - General Family Medicine 06/15/24 Yasir Winter MD [facility] [address] [place] [address] Gastroenterology 01/22/21 Claudia Otto DO [address] [place] [address] Family Medicine 05/21/24 documented as of this encounter
--- OUTSIDE RECORDS SUMMARY | 2025-07-26 20:20 | XMS_ITS | Encounter Summary ---
Author Organization [facility] Home [facility] Address [address] [place] [address] Care Team Providers Care Airframe And Powerplant Mechanic Name Role Phone Claudia Mcknight DO Primary Care Provi errol Encounter Details Date Type Department Care Team (Late st Contact Info) Description 06/30/2024 Scanned Document [facility] Internal Medicine [facility] [address] [facility] [address] [place], [place] [address] External, Provider Social History Tobacco Use Types [...] Friends and Family Patient declined 03/08/2019 Attends Sikh Services Patient declined 02/09 Active Member of Clubs or Organizations Patient declined 03/08/2019 Attends Club or Organization Meetings Patient de clined 03/08/2019 Marital Status Patient declined 03/08/2019 AUDIT-C Answer Date Recorded Frequency of Alcohol Consumption Never 09/27/2019 Average Number of Drinks Not on file 020 Frequency of Binge Drinking Not on file 09/11 PHQ-2 Answer Date Recorded PHQ-2 Total Score 0 06/25/2024 [facility] [place] of Occupat ional Health - Occupational Stress [...] 11:30 AM EST Follow Up [facility] Cardiology [facility] 112 [facility] [address] [place], [place] [address] Srinath Stallings MD [address] [facility] [address] [place] [phone] 08/22/2025 3:45 PM EST Initial consult [facility] General Surgery [facility] [address] [place], [place] [address] Kimberlee Ace MD [address] [place] [phone] 09/05/2025 9:20 AM EST Follow Up [facility] [address] [place] [address] Dayana Franz MD [address] [place] [phone] 09/14/2025 12:45 PM EST Office Visit [facility] U[facility] [address] [address] Capo Ellington MD [address] [place] [phone] 11/23/2025 4:00 PM EDT Follow Up [facility] Internal Medicine [facility] [address] [facility] [place] [address] Claudia Mcknight DO [address] [place] [address] [place] [phone] documented as of this encounter Procedures Procedure [...] documented as of this encounter Care Teams Airframe And Powerplant Mechanic Relationship Specialty Start Date End Date Claudia Mcknight DO [address] [place] [address] [place] [phone] PCP - General Family Medicine 05/18/24 documented as of this encounter
--- OUTSIDE RECORDS SUMMARY | 2025-07-26 20:20 | XMS_ITS | Encounter Summary ---
Author Organization [facility] Address [address] [place] [address] Care Team Providers Care Marketing Segment Manager Name Role Phone Yasir Winter MD Unavailable [phone] Claudia Otto DO Unavailable [phone] AntonioClaudia Ozuna DO Primary Care Provi errol Encounter Details Date Type Department Care Team (Late st Contact Info) Description 01/06/2025 Scanned Document [facility] [address] [place] [address] Gastroenterology, Scan Social History Tobacco Use Types [...] on filedocumented in this encounter Care Teams Marketing Segment Manager Relationship Specialty Start Date End Date Claudia Otto DO [address] [place] [address] PCP - General Family Medicine 06/15/24 Yasir Winter MD [facility] [address] [place] [address] Gastroenterology 01/22/21 Claudia Otto DO [address] [place] [address] Family Medicine 05/21/24 documented as of this encounter
--- OUTSIDE RECORDS SUMMARY | 2025-07-26 20:20 | XMS_ITS | Encounter Summary ---
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 going to Scientologist, working around the house Alcohol Use Standard Drinks/Week Comments Not Currently 0 (1 standard drink = 0.6 oz pur e alcohol) [facility] Utilities Answer Date Recorded In the past 12 months has [employer] electric, gas, oil, or water company threatened [...] Date Recorded PHQ-2 Total Score 0 05/25/2025 [facility] - Occupational Stress Questionnaire Answer Date Recorded [...] 11:30 AM EST Follow Up [facility] Cardiology [facility] [address] [place], [place] [address] Srinath Stallings MD [address] [place] [phone] 08/22/2025 3:45 PM EST Initial consult [facility] General Surgery [facility] [address] [place] [address], [place] [address] Kimberlee Ace MD [address] [place] [phone] 09/05/2025 9:20 AM EST Follow Up [facility] Sleep [address] [id number] Dayana Franz MD [address] [place] [phone] 09/14/2025 12:45 PM EST Office Visit [facility] Urology [address] [address] Capo Ellington MD [address] [place] [phone] 11/23/2025 4:00 PM EDT Follow Up [facility] Internal Medicine [facility] [address] [place] [address] [address] [place] [address] Claudia Mcknight DO [address] [place] [address] 203 [place] [phone] documented as of this encounter Visit Diagnoses Not on filedocumented in this encounter Additional Health Concerns Assessment Noted Time PHQ-9 Depression Total Score: 0 05/18/20 24 7:23 AM EDT documented as of this encounter Care Teams Teller Supervisor Relationship Specialty Start Date End Date Claudia Mcknight DO [address] [place] [address] 203 [place] [phone] PCP - General Family Medicine 05/18/24 documented as of this encounter
--- OUTSIDE RECORDS SUMMARY | 2025-07-26 20:20 | XMS_ITS | Encounter Summary ---
Author Organization [facility] Address [address] [place] [address] Care Team Providers Care Interactive Digital Media Specialist Name Role Phone Yasir Winter MD Unavailable [phone] Claudia Otto DO Unavailable [phone] AntonioClaudia Ozuna DO Primary Care Provi errol Encounter Details Date Type Department Care Team (Late st Contact Info) Description 06/09/2025 Scanned Document [facility] [address] [address] Frankie Alvarez MD [address] [place] [address] Social History Tobacco Use Types [...] on filedocumented in this encounter Care Teams Interactive Digital Media Specialist Relationship Specialty Start Date End Date Claudia Otto DO [address] [place] [address] PCP - General Family Medicine 06/15/24 Yasir Winter MD [facility] [address] [place] [address] Gastroenterology 01/22/21 Claudia Otto DO [address] [place] [address] Family Medicine 05/21/24 documented as of this encounter
--- OUTSIDE RECORDS SUMMARY | 2025-07-26 20:20 | XMS_ITS | Encounter Summary ---
Author Organization [facility] Address [address] [place] [address] Care Team Providers Care Dry Dip Worker Name Role Phone Claudia Mcknight DO Primary Care Provi errol Reason for Visit * Reason Comments Medication Refill Encounter Details Date Type Department Care Team (Late st Contact Info) Description 05/10/2025 Refill [facility] Internal Medicine [facility] 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 Enjoys going to Yazdanism, working around the house Alcohol Use Standard [...] Friends and Family Patient declined 03/08/2019 Attends Adventism Services Patient declined 02/09 Active Member of Clubs or Organizations Patient declined 03/08/2019 Attends Club or Organization Meetings Patient de clined 03/08/2019 Marital Status Patient declined 03/08/2019 AUDIT-C Answer Date Recorded Frequency of Alcohol Consumption Never 09/27/2019 Average Number of Drinks Not on file 020 Frequency of Binge Drinking Not on file 09/11 PHQ-2 Answer Date Recorded PHQ-2 Total Score 0 03/30/2025 [facility] - Occupational Stress [...] 11:30 AM EST Follow Up [facility] [address] [facility] [address] [place], [place] [address] Srinath Stallings MD [address] [facility] [address] [place] [phone] 08/22/2025 3:45 PM EST Initial consult [facility] General Surgery [facility] [address] [place] [address] Kimberlee Ace MD [address] [place] [address] 09/05/2025 9:20 AM EST Follow Up [facility] Sleep [facility] [address] [address] [place], [place] [address] Dayana Franz MD [address] [place] [address] 09/14/2025 12:45 PM EST Office Visit [facility] [address] [place] [address] Capo Ellington MD [address] [place] [phone] 11/23/2025 4:00 PM EDT Follow Up [facility] Internal Medicine [facility] [address] [facility] [address] [place], [place] [address] Claudia Mcknight DO [address] [place] [address] Rd [address] [place] [phone] documented as of this encounter Visit Diagnoses Not on filedocumented in this encounter Additional Health Concerns Assessment Noted Time PHQ-9 Depression Total Score: 0 05/18/20 7:23 AM EDT documented as of this encounter Care Teams Dry Dip Worker Relationship Specialty Start Date End Date Claudia Mcknight DO [address] [place] [address] Rd [address] [place] [phone] PCP - General Family Medicine 05/18/24 documented as of this encounter
--- OUTSIDE RECORDS SUMMARY | 2025-07-26 20:20 | XMS_ITS | Encounter Summary ---
Author Organization [facility] Address [address] [place] [address] Care Team Providers Care Material Disposition Inspector Name Role Phone Yasir Winter MD Unavailable [phone] Claudia Otto DO Unavailable [phone] AntonioClaudia Ozuna DO Primary Care Provi errol Encounter Details Date Type Department Care Team (Late st Contact Info) Description 06/15/2024 Scanned Document [facility] [address] [place] [phone] Yasir Winter MD [facility] [address] [place], [place] [phone] Social History Tobacco Use Types Packs/Day Years [...] on filedocumented in this encounter Care Teams Material Disposition Inspector Relationship Specialty Start Date End Date Claudia Otto DO [address] [place] [address] PCP - General Family Medicine 06/15/24 Yasir Winter MD [facility] [address] [place] [address] Gastroenterology 01/22/21 Claudia Otto DO [address] [place] [address] Family Medicine 05/21/24 documented as of this encounter
--- OUTSIDE RECORDS SUMMARY | 2025-07-26 20:20 | XMS_ITS | Encounter Summary ---
Author Organization [facility] Address [address] [place] [address] Care Team Providers Care Forest Pathology Teacher Name Role Phone Ankit Edge Primary Care Provider [phone] Yasir Winter MD Unavailable [phone] Manjit Bryant MD Primary Care Provider Unav ailable Antonio-Pospisil, Claudia DO Unavailable [phone] Antonio-Pospisil, Claudia DO Primary Care Provi errol Encounter Details Date Type Department Care Team (Late st Contact Info) Description 10/15/2021 Scanned Document [facility] [address] [place] [address] Yasir Winter MD [address] [place], [place] [phone] Social History Tobacco Use Types Packs/Day Years [...] on filedocumented in this encounter Care Teams Forest Pathology Teacher Relationship Specialty Start Date End Date Ankit Edge PA [address] [place] [address] PCP - General 01/22/21 06/30/22 Manjit Bryant MD [facility] [place] [address] PCP - General Internal Medicine 07/01/22 06/02/24 Claudia Otto DO [address] [place] [address] PCP - General Family Medicine 06/15/24 Yasir Winter MD [facility] [address] [place] [address] Gastroenterology 01/22/21 Claudia Otto DO [address] [place] [address] Family Medicine 05/21/24 documented as of this encounter
--- OUTSIDE RECORDS SUMMARY | 2025-07-26 20:20 | XMS_ITS | Encounter Summary ---
Author Organization [facility] Address [address] [place] [address] Care Team Providers Care Public Relations Supervisor Name Role Phone Yasir Winter MD Unavailable [phone] Claduia Otto DO Unavailable [phone] AntonioClaudia Ozuna DO Primary Care Provi errol Encounter Details Date Type Department Care Team (Late st Contact Info) Description 03/25/2025 Scanned Document [facility] [address] [address] Frankie Alvarez MD [address] [place] [address] Social History Tobacco Use Types [...] on filedocumented in this encounter Care Teams Public Relations Supervisor Relationship Specialty Start Date End Date Claudia Otto DO [address] [place] [address] PCP - General Family Medicine 06/15/24 Yasir Winter MD [facility] [address] [place] [address] Gastroenterology 01/22/21 Claudia Otto DO [address] [place] [address] Family Medicine 05/21/24 documented as of this encounter
--- OUTSIDE RECORDS SUMMARY | 2025-07-26 20:20 | XMS_ITS | Encounter Summary ---
Author Organization [facility] Address [address] [place] [address] Care Team Providers Care Medical Fee Clerk Name Role Phone Yasir Winter MD Unavailable [phone] Claudia Otto DO Unavailable [phone] Claudia Otto DO Primary Care Provi errol Encounter Details Date Type Department Care Team (Late st Contact Info) Description 06/06/2024 Scanned Document [facility] [address] [place] [address] Provider, Generic Social History Tobacco Use [...] filedocumented in this encounter Care Teams Medical Fee Clerk Relationship Specialty Start Date End Date Claudia Otto DO [address] [facility] [address] [place] [address] PCP - General Family Medicine 06/15/24 Yasir Winter MD [address] [place] [address] [address] [place] [address] Gastroenterology 01/22/21 Claudia Otto DO [address] [facility] [address] [place] [address] Family Medicine 05/21/24 documented as of this encounter
--- OUTSIDE RECORDS SUMMARY | 2025-07-26 20:20 | XMS_ITS | Encounter Summary ---
Author Organization [facility] Address [address] [place] [address] Care Team Providers Care Film Developer Name Role Phone Yasir Winter MD Unavailable [phone] Manjit Bryant MD Primary Care Provider Unav ailable Claudia Otto DO Unavailable [phone] Claudia Otto DO Primary Care Provi errol Encounter Details Date Type Department Care Team (Late st Contact Info) Description 12/25/2023 Scanned Document [facility] [address] [place] [phone] Gastroenterology, Scan Social History Tobacco Use Types [...] on filedocumented in this encounter Care Teams Film Developer Relationship Specialty Start Date End Date Manjit Bryant MD [address] [place] [address] [address] [place] [address] PCP - General Internal Medicine 07/01/22 06/02/24 Claudia Otto DO [address] [facility] [address] [place] [address] PCP - General Family Medicine 06/15/24 Yasir Winter MD [address] [place] [address] [address] [place] [address] Gastroenterology 01/22/21 Claudia Otto DO [address] [facility] [address] [place] [address] Family Medicine 05/21/24 documented as of this encounter
--- OUTSIDE RECORDS SUMMARY | 2025-07-26 20:20 | XMS_ITS | Encounter Summary ---
Author Organization [facility] Address [address] [place] [address] Care Team Providers Care Professor Of Forestry Name Role Phone Claudia Mcknight DO Primary Care Provi errol Encounter Details Date Type Department Care Team (Late st Contact Info) Description 06/09/2025 Results Follow-Up [facility] Internal Medicine [facility] 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 Enjoys going to Religious, working around the house Alcohol Use Standard Drinks/Week Comments Not Currently 0 (1 standard drink = 0.6 oz pur e alcohol) [facility] Utilities Answer Date Recorded In the past 12 months has [employer] electric, gas, oil, or water company threatened [...] Friends and Family Patient declined 03/08/2019 Attends Orthodoxy Services Patient declined 02/09 Active Member of Clubs or Organizations Patient declined 03/08/2019 Attends Club or Organization Meetings Patient de clined 03/08/2019 Marital Status Patient declined 03/08/2019 AUDIT-C Answer Date Recorded Frequency of Alcohol Consumption Never 09/27/2019 Average Number of Drinks Not on file 020 Frequency of Binge Drinking Not on file 09/11 PHQ-2 Answer Date Recorded PHQ-2 Total Score 0 05/25/2025 [facility] - Occupational Stress Questionnaire Answer [...] Encounter Note - Claudia Mcknight DO - 06/09/2025 11:30 AM EDT Colonoscopy 10/12/2021 diverticulosis whole colon. Repeat in 5 years. documented in this encounter Plan of Treatment Upcoming Encounters Date Type Department Care Team (Late st Contact Info) Description 08/17/2025 11:30 AM EST Follow Up [facility] Cardiology [facility] [address] [facility] [address] [place] [address] Srinath Stallings MD [address] [facility] [address] [place] [address] 08/22/2025 3:45 PM EST Initial consult [facility] General Surgery [facility] [address] [place] [address] Kimberlee Ace MD [address] [place] [phone] 09/05/2025 9:20 AM EST Follow Up [facility] Sleep [facility] [address] [place] [address] Dayana Franz MD [address] [place] [phone] 09/14/2025 12:45 PM EST Office Visit [facility] [place] [address] Capo Ellington MD [address] [place] [phone] 11/23/2025 4:00 PM EDT Follow Up [facility] Internal Medicine [facility] [address] [facility] [address] [place] [address] Claudia Mcknight DO [address] [facility] [address] [place] [phone] documented as of this encounter Visit Diagnoses Not on filedocumented in this encounter Additional Health Concerns Assessment Noted Time PHQ-9 Depression Total Score: 0 05/18/20 24 7:23 AM EDT documented as of this encounter Care Teams Professor Of Forestry Relationship Specialty Start Date End Date Claudia Mcknight DO [address] [facility] [address] [place] [phone] PCP - General Family Medicine 05/18/24 documented as of this encounter
--- OUTSIDE RECORDS SUMMARY | 2025-07-26 20:20 | XMS_ITS | Encounter Summary ---
Author Organization [facility] Address [address] [place] [address] Care Team Providers Care Personnel Clerks Supervisor Name Role Phone Yasir Winter MD Unavailable [phone] Claudia Otto DO Unavailable [phone] AntonioClaudia Ozuna DO Primary Care Provi errol Encounter Details Date Type Department Care Team (Late st Contact Info) Description 02/21/2025 Scanned Document [address] [place] [phone] Provider, Generic Social History Tobacco Use Types [...] on filedocumented in this encounter Care Teams Personnel Clerks Supervisor Relationship Specialty Start Date End Date Claudia Otto DO [address] [place] [address] PCP - General Family Medicine 06/15/24 Yasir Winter MD [address] [place] [address] [address] [place] [address] Gastroenterology 01/22/21 Claudia Otto DO [address] [place] [address] Family Medicine 05/21/24 documented as of this encounter
--- OUTSIDE RECORDS SUMMARY | 2025-07-26 20:20 | XMS_ITS | Encounter Summary ---
Author Organization [facility] Address [address] [place] [address] Care Team Providers Care Family Preservation Worker Name Role Phone Claudia Mcknight DO Primary Care Provi errol Reason for Visit * Reason Onset Date Comments Referral 04/14/2025 Encounter Details Date Type Department Care Team (Late st Contact Info) Description 04/14/2025 Telephone [facility] Internal Medicine [facility] 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 Enjoys going to Yazidi, working around the house Alcohol Use Standard [...] Date Recorded PHQ-2 Total Score 0 03/30/2025 [facility] Occupat ional Health - Occupational [...] 03/30/25 Patient's Insurance: N/A Call back # [phone] documented in this encounter Plan of Treatment Upcoming Encounters Date Type Department Care Team (Late st Contact Info) Description 08/17/2025 11:30 AM EST Follow Up [facility] Cardiology [facility] 112 [facility] [address] [place], [place] [address] Srinath Stallings MD 112 [facility] [address] [place] [phone] 08/22/2025 3:45 PM EST Initial consult [facility] General Surgery [facility] [address] [place] [address] Kimberlee Ace MD [address] [place] [phone] 09/05/2025 9:20 AM EST Follow Up [facility] [address] [place] [address] Dayana Franz MD [address] [place] [phone] 09/14/2025 12:45 PM EST Office Visit [facility] [place] [address] [place], [place] [address] Capo Ellington MD [address] [place] [phone] 11/23/2025 4:00 PM EDT Follow Up [facility] Internal Medicine [facility] [address] [facility] [address] [place] [address] Claudia Mcknight DO [address] [place] [address] [address] [place] [phone] documented as of this encounter Visit Diagnoses Not on filedocumented in this encounter Additional Health Concerns Assessment Noted Time PHQ-9 Depression Total Score: 0 05/18/20 24 7:23 AM EDT documented as of this encounter Care Teams Family Preservation Worker Relationship Specialty Start Date End Date Claudia Mcknight DO [address] [place] [address] [place] [phone] PCP - General Family Medicine 05/18/24 documented as of this encounter
--- OUTSIDE RECORDS SUMMARY | 2025-07-26 20:20 | XMS_ITS | Clinical Summary ---
Author Organization [address] [place] [address] Phone Care Team Providers Care Labor Relations Specialist Name Role Phone Claudia Mcknight DO Primary Care Provi errol Allergies No known active allergies Medications diclofenac (VOLTAREN-XR) 100 mg 24 hr tabletIndications:Lum bar radiculopathy,Isthmic spondylolisthesis Take 1 tablet (100 mg total) by mouth daily as needed for pain. 30 tablet 2 05/25/20 25 Active olmesartan-amLODIPine -hydrocholorthiazide (TRIBENZOR) 40-10-25 mg tabletIndications:Nida connor hypertension Take 1 tablet by mouth daily. 90 tablet 3 05/25/20 25 Active dutasteride (AVODART) 0.5 mg capsuleIndications:Lo wer urinary tract symptoms (LUTS) Take 1 capsule (0.5 mg total) by mouth daily. 90 capsule 3 05/25/20 25 Active pantoprazole (PROTONIX) 40 mg tabletIndications:gas troesophageal reflux disease Take 1 tablet (40 mg total) by mouth 2 (two) times daily (0800, 1800). 180 tablet 3 05/25/20 25 Active sucralfate (CARAFATE) 1 gram tabletIndications:gas troesophageal reflux disease Take 1 tablet (1 g total) by mouth daily. 90 tablet 3 05/25/20 25 Active potassium chloride (K-TAB) 20 mEq extended release tabletIndications:Hyp okalemia Take 1 tablet (20 mEq total) by mouth daily. 90 tablet 3 05/25/20 Active doxazosin (CARDURA) 2 mg tabletIndications:Low er urinary tract symptoms (LUTS),Primary hypertension Take 1 tablet (2 mg total) by mouth nightly. 90 tablet 3 05/25/20 25 Active atorvastatin (LIPITOR) 20 mg tabletIndications:Mix ed hyperlipidemia Take 1 tablet (20 mg total) by mouth daily. 90 tablet 3 05/25/20 Active mometasone (NASONEX) 50 mcg/actuation nasal sprayIndications:Order Dispatcher zackery rhinitis Use 2 sprays in each nostril daily. 51 g 3 05/25/20 Active ciclopirox (PENLAC) 8 % solutionIndications:O nychomycosis of great toe Apply topically nightly. 6.6 mL 3 05/25/20 Active tadalafiL (CIALIS) 20 mg tabletIndications:Mal e erectile disorder Take 1 tablet (20 mg total) by mouth daily as needed for erectile dysfunction. 10 tablet 2 05/25/20 Active terbinafine HCL (LAMISIL) 250 mg tabletIndications:Amberly chomycosis of great toe Take 1 tablet (250 mg total) by mouth daily. 90 tablet 05/25/20 Active Active Problems Problem Noted Date Diagnosed [...] Resolved Date Calculus of left kidney 09/06/2024 08 Pain and swelling of toe of right foot 05/18/2024 03/30/2025 Otitis media, right 05/18/2024 09/06/19 Sigmoid diverticulitis 03/14/202103/15 Generalized abdominal pain 03/13/2021 0 03/15/2021 Snoring 11/17/2014 05/18/2024 Substance induced mood disorder (HC Code) 03/30/2025 Encounters Date Type Department Care Team Description 07/04/2025 Telephone [facility] Sleep Center [facility] [address], [address] [place] [address] Dayana Franz MD Other 06/09/2025 11:45 AM EDT Office Visit [facility] Urology [facility] [address] [place] [address] Claudia Mcknight DO Goland-Van Ryn, Matthew Louis, MD Male erectile disorder (Primary Dx); Peyronie's disease; Screening PSA (prostate specific antigen) 06/09/2025 Telephone [facility] Sleep [facility] [address] [place] [address] Dayana Franz MD Appointment (Sleep fu) 06/09/2025 Results Follow-Up [facility] Internal Medicine [facility] [address] [facility] [address] [place] [address] Claudia Mcknight DO COLONOSCOPY 06/04/2025 Scanned Document INTERFACE DEFAULT [address] [place] [address] System, Provider Not In 05/26/2025 Telephone [facility] Internal Medicine [facility] [address] [facility] [address] [place] [address] Claudia Mcknight, Other 05/25/2025 3:00 PM EDT Office Visit [facility] Internal Medicine [facility] [address] [facility] [address] [place] [address] Claudia Mcknight, Annual physical exam (Primary Dx); Need for [...] esophagus with dysplasia; Chronic rhinitis 05/10/2025 Refill [facility] Internal Medicine [facility] 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 Enjoys going to [employer], working around the house Alcohol Use Standard Drinks/Week Comments Not Currently 0 (1 standard drink = 0.6 oz pur e alcohol) [facility] Utilities Answer Date Recorded In the [...] Friends and Family Patient declined 03/08/2019 Attends [employer] [facility] Patient declined 02/09 Active Member of Clubs or Organizations Patient declined 03/08/2019 Attends Club or Organization Meetings Patient de clined 03/08/2019 Marital Status Patient declined 03/08/2019 AUDIT-C Answer Date Recorded Frequency of Alcohol Consumption Never 09/27/2019 Average Number of Drinks Not on file 020 Frequency of Binge Drinking Not on file 09/11 PHQ-2 Answer Date Recorded PHQ-2 Total Score 0 05/25/2025 [facility] - Occupational Stress Questionnaire Answer [...] Description 08/17/2025 11:30 AM EST Follow Up [facility] Cardiology [facility] [address] [place], [place] [address] Srinath Stallings MD [address] [place] [phone] 08/22/2025 3:45 PM EST Initial consult [facility] General Surgery [facility] [address] [place] [address] Kimberlee Ace MD [address] [place] [phone] 09/05/2025 9:20 AM EST Follow Up [facility] [address] [place] [address] Dayana Franz MD [address] [place] [phone] 09/14/2025 12:45 PM EST Office Visit [facility] Urology [place] [phone] [place] [address] Capo Ellington MD [address] [place] [address] [phone] 11/23/2025 4:00 PM EDT Follow Up [facility] Internal Medicine [facility] [address] [facility] [address] [place], [place] [address] Claudia Mcknight, [address] [place] [address] [address] [place] [phone] Health Maintenance Due Date Last Done Comments Pneumococcal Vaccine (50+ years) (1 of 1 - PCV) 2014 Shingles vaccine (Shingrix) (2 of 2 - Shingrix (RZV) 2 Dose Standard Series) 05/22/2022 03/22/2022 Covid-19 vaccine series ( season) 2025 05/09/2023, 12/06/2020, 11/08/2020 PSA 05/18/2025 [...] Procedure Name Priority Date/Time Associated Diagnosis Comments LIPID PANEL WITH REFLEX TO DIRECT LDL (Q) Routine 04/16/2025 9:31 AM EDT Hypokalemia HEMOGLOBIN A1C Routine 04/16/2025 9:31 AM EDT Hypokalemia HIV-1/HIV-2 ANTIBODY/ANTIGEN SCREEN W/REFLEX ( GH LMW YH) Routine 05/18/2024 8:24 AM EDT Annual physical exam HEPATITIS C AB WITH REFLEX TO HCV PCR Routine 05/18/2024 8:24 AM EDT Annual physical exam PSA, TOTAL (SCREENING) ( GH L LMW YH) Routine 05/18/2024 8:24 AM EDT Annual physical exam HM COLONOSCOPY 10/12/2021 12:00 AM EST from Last 3 Months or Most Recently Relevant to Health Maintenance Results * Lipid panel with reflex to direct LDL (Q) (04/16/2025 9:31 AM EDT) Cholesterol, Total 196 <200 mg/dL [facility] HDL 83 > OR = 40 mg/dL [facility] Triglycerides 68 <150 mg/dL [facility] LDL Cholesterol 98 mg/dL (calc) [facility] Comment: Reference range: <100 Desirable range <100 mg/dL for primary prevention; <70 mg/dL for patients with CHD or diabetic patients with > or = 2 CHD risk factors. LDL-C is now calculated using the Etienne calculation, which is a validated novel method providing better accuracy than the Friedewald equation in the estimation of LDL-C. Ezra SS et al. YULIANA. 2013;310(19): 2812-4715 (http://education.OpenPeak/faq/DON562) Chol/HDL Ratio 2.4 <5.0 (calc) [facility] [...] Comment Performing Lab: Site ID: [id number] Name: [facility] Address: [address] [place] [phone] Director: Shruthi Kenyon M.D. Claudia Mcknight DO LAB BLOOD ORDERABLE S Final Result Performing Organization Address City/State/[facility] [[email or web address]] Co de Phone Number [facility] [address] [place] [address] * (ABNORMAL) Hemoglobin A1c (04/16/2025 9:31 AM [...] Comment Performing Lab: Site ID: [id number] Name: [facility] Address: [address] [place] [phone] Director: Shruthi Kenyon M.D. [facility] PospiSicubo DO LAB BLOOD ORDERABLE S Final Result Performing Organization Address City/[facility]/ZIP Co de Phone Number [facility] [address] [place] [address] * HIV-1/HIV-2 antibody/antigen screen w/reflex (BH GH LMW YH) (05/18/2024 8:24 AM EDT) HIV 1 and 2 Antibody/Antigen Screen Non-Reac tive Non-Reac tive 05/18/2024 1:29 PM EDT [facility] Comment:Interpretation: This specimen is HIV antibody [...] 8:24 AM EDT 05/18/2024 8:24 AM EDT [facility] [employer] DO LAB BLOOD ORDERABLE S Final Result [address] [phone] * Hepatitis C Ab with reflex to HCV PCR (05/18/2024 8:24 AM EDT) Hepatitis C Ab Initial Result 0.07 S/CO 05/18/2024 12:08 PM EDT [facility] Hepatitis C Ab Interpretation Non-React patty Non-React patty 05/18/2024 12:08 PM EDT [facility] Blood Venipuncture / Unknown 05/18/2024 8:24 AM EDT 05/18/2024 8:24 AM EDT [facility] Pospisil DO LAB BLOOD ORDERABLE S Final Result Performing Organization Address [facility]/ZIP Co de Phone Number [address] [phone] * PSA, total (screening) (BH GH L LMW YH) (05/18/2024 8:24 AM EDT) [facility] Prostate Specific Antigen, Screening 0.661 <=4.000 ng/mL 05/18/2024 1:52 PM EDT [facility] Comment: This assay is performed on the Lara platform using WHO standards. A total PSA value of 4ng/mL may not be an appropriate actionable threshold in all clinical situations. For healthcare providers, see institutional care pathway via Epic Tools > Integrated Care Models > Abnormal Prostate http://[email or web address].org/uploads/abnormal%20Prostate%20stewardship%20ICM%20algorith m.pdf The results cannot be interpreted as absolute evidence of the presence or absence of malignant disease. The values obtained from a different assay method or kits cannot be used interchangeably. This test was performed on the Delicia e602 manufactured by [employer] using an ElectroChemiLuminescence immunoassay. Blood Venipuncture / Unknown 05/18/2024 8:24 AM EDT 05/18/2024 8:24 AM EDT [facility][1] Antonio Pospisil DO LAB BLOOD ORDERABLE S Final Result Performing Organization Address City/[facility]/ZIP Co de Phone Number [address] [phone] * HM COLONOSCOPY (10/12/2021 12:00 AM EST) us Provider Not In System HEALTH MAINTENANCE Final Result from Last 3 Months or Most Recently Relevant to Health Maintenance Insurance [facility] BS [facility] Advance Directives * Full ACLS (Latest Code Status on File) Date Activated Date Inactivated Comments 03/13/2021 12:52 PM 03/15/2021 6:43 PM Question Answer Comments With Whom was the Code Status Discussed? Patient Care Teams Labor Relations Specialist Relationship Specialty Start Date End Date Claudia Mcknight DO [address] [facility] [address] [place] [address] PCP - General Family Medicine 05/18/24
--- OUTSIDE RECORDS SUMMARY | 2025-07-26 20:20 | XMS_ITS | Encounter Summary ---
Author Organization [facility] Address [address] [place] [address] Care Team Providers Care Distributor Operator Name Role Phone Claudia Mcknight DO Primary Care Provi errol Reason for Visit * Reason Onset Date Comments Other 03/22/2025 Encounter Details Date Type Department Care Team (Late st Contact Info) Description 03/22/2025 Telephone [facility] Sleep Center [address], [address] [place], [place] [phone] Dayana Franz MD [address] [place] [phone] Other Social History Tobacco Use Types Packs/Day Years Used Date Smoking Tobacco: Never Smokeless Tobacco: Never Comments:quit 16 yrs ago to [place], 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 Enjoys going to [employer], working around the house Alcohol Use [...] Date Recorded PHQ-2 Total Score 0 09/06/2024 [facility] - [...] Description 08/17/2025 11:30 AM EST Follow Up [facility] Cardiology [facility] [address] [place] [address] Srinath Stallings MD [address] [place] [phone] 08/22/2025 3:45 PM EST Initial consult [facility] General Surgery [place] [address] [place] [address] Kimberlee Ace MD [address] [place] [phone] 09/05/2025 9:20 AM EST Follow Up [facility] [place] [facility] [address] [place] [address] Dayana Franz MD [address] [place] [phone] 09/14/2025 12:45 PM EST Office Visit [facility] Urology [address] [phone] Capo Ellington MD [address] [place] [phone] 11/23/2025 4:00 PM EDT Follow Up [facility] Internal Medicine [facility] [address] [facility] [address] [place] [address] Claudia Mcknight DO [address] [place] [address] [address] [place] [phone] documented as of this encounter Visit Diagnoses Not on filedocumented in this encounter Additional Health Concerns Assessment Noted Time PHQ-9 Depression Total Score: 0 05/18/20 7:23 AM EDT documented as of this encounter Care Teams Distributor Operator Relationship Specialty Start Date End Date Claudia Mcknight DO [address] [place] [address] [address] [place] [phone] PCP - General Family Medicine 05/18/24 documented as of this encounter
== END 2025-07-26 17:50 | disposition home or self-care (01) ==
LOC: HO.HMCH 16:53
PROVIDERS: PCP Internal Medicine; Visit Provider Internal Medicine
DX: Z00.00 Encounter for general adult medical examination without abnormal findings (principal); J30.9 Allergic rhinitis, unspecified; F33.0 Major depressive disorder, recurrent, mild; M54.31 Sciatica, right side; M25.561 Pain in right knee; M25.562 Pain in left knee

== ENCOUNTER → 2025-07-26 16:52 | Outpatient (BNVA) | payer BC, SELFPAY | PROVIDERS: PCP Internal Medicine; Visit Provider Internal Medicine | DX: Z13.31 Encounter for screening for depression (principal) | CPT/HCPCS: 96127 ==